=== PATIENT | female | born 2000 | race Caucasian/White ===

== ENCOUNTER → 2019-02-09 11:34 | Outpatient (CLI) | payer OTHER, SELFPAY ==
[2019-02-09 14:01] LABS: Absolute Lymphocyte Count 2.76 X10^3/ul (0.83-4.51); Absolute Neutrophil Count 3.1 X10^3/uL (2.0-7.7); Basophil# 0.01 X10^3/uL; Basophil% 0.2 % (0-1); Eosinophil# 0.03 X10^3/uL; Eosinophils% 0.5 % (0-5); Hematocrit 39.4 % (37-47); Hemoglobin 13.3 g/dl (12.0-15.0); Lymphocyte # 2.76 X10^3/ul (4.0); Mean Corp Hgb Conc 33.8 g/gl (32-36); Mean Corpuscular Hgb 29.1 pg (27.0-32.0); Mean Corpuscular Volume 86.2 fL (81-99); Mean Platelet Vol. 11.8 fl (6.2-12.0); Monocyte# 0.38 X10^3/uL; Monocyte% 6.1 % (0-10); Neutrophil # 3.09 X10^3/uL (2.7-7.7); Neutrophil % 49.2 % (47-70); Platelet Count 233 K/mm3 (150-450); RBC Distribution Width CV 13.3 % (11.6-14.6); RBC Distribution Width SD 41.7 fl (35.1-43.9); Red Blood Count 4.57 M/mm3 (4.2-5.4); White Blood Count 6.3 K/mm3 (4.4-11.0)
[2019-02-09 14:11] LABS: POSITIVE COUNT NO; POSITIVE DIFFERENTIAL NO; POSITIVE MORPHOLOGY NO
[2019-02-09 14:13] LABS: Vitamin D,25 Hydroxy 21.6 ng/mL (29.95-100.01)
[2019-02-09 14:23] LABS: Anion Gap 8 (5-15); BUN 11 mg/dL (7-18); Calcium,Total 9.4 mg/dL (8.5-10.1); Chloride 104 mmol/L (98-107); Creatinine, Serum 0.65 mg/dL (0.55-1.02); EST Glomerular Filtration Rate 123 mL/min (>60); Est Glom Filt Rate - Afr Amer 149 mL/min (>60); Glucose 103 mg/dL (74-106); Potassium 3.9 mmol/L (3.5-5.1); Sodium Level 140 mmol/L (136-145); T4 Free Direct 0.94 ng/dL (0.76-1.46); Thyroid Stim Hormone (TSH) 1.93 uIU/mL (0.358-3.74)
== END ==
PROVIDERS: Family Provider Pediatrics; PCP Pediatrics; Referring Provider Pediatrics; Visit Provider Pediatrics
DX: R53.83 Other fatigue (principal)
CPT/HCPCS: 36415; 80048; 82306; 84439; 84443; 85025

== ENCOUNTER 2021-12-27 13:18 | Outpatient (CLI) | payer OTHER, SELFPAY ==
[2021-12-27 15:04] LABS: Absolute Lymphocyte Count 2.84 X10^3/uL (0.83-4.51); Basophil# 0.02 X10^3/uL; Basophil% 0.2 % (0-1); Eosinophil# 0.09 X10^3/uL; Hematocrit 35.1 % (37-47); Lymphocyte # 2.84 X10^3/ul (0.83-4.51); Lymphocyte % 30.2 % (19-41); Mean Corp Hgb Conc 34.2 g/dL (32-36); Mean Corpuscular Hgb 28.2 pg (27.0-32.0); Mean Corpuscular Volume 82.4 fL (81-99); Mean Platelet Vol. 12.2 fl (6.2-12.0); Monocyte# 0.45 X10^3/uL; Monocyte% 4.8 % (0-10); NRBC Flagged by Analyzer 0 % (0-5); Neutrophil # 5.97 X10^3/uL (2.7-7.7); Neutrophil % 63.5 % (47-70); Platelet Count 288 K/mm3 (150-450); RBC Distribution Width CV 13.8 % (11.6-14.6); RBC Distribution Width SD 40.5 fl (35.1-43.9); Red Blood Count 4.26 M/mm3 (4.2-5.4); White Blood Count 9.4 K/mm3 (4.4-11.0)
[2021-12-27 15:56] LABS: HIV - WCH Non-Reactive (Nonreactive); Hepatitis B Surface Antigen Non-Reactive (Nonreactive); Hepatitis C Antibody Non-Reactive (Nonreactive); Rubella IgG Reactive (Nonreactive); Syphilis Antibodies Non-reactive
[2021-12-30 09:08] LABS: Chlamydia By Nucleic Acid AMP Negative (Negative)
[2021-12-30 10:20] LABS: Gonococcus By Nucleic Acid AMP Negative (Negative)
[2022-01-02 16:42] LABS: HPV Reflexed? NOT INDICATED
== END 2021-12-27 23:59 | disposition home or self-care (01) ==
LOC: WOBLAB 13:19
PROVIDERS: PCP Pediatrics; Visit Provider Obstetrics & Gynecology
DX: Z34.81 Encounter for supervision of other normal pregnancy, first trimester (principal)
CPT/HCPCS: 36415; 85025; 86703; 86762; 86780; 86803; 87086; 87088; 87340; 87491; 87591; 88175; G0145

== ENCOUNTER → 2022-04-05 | Outpatient (CLI) | payer OTHER, SELFPAY ==
[2022-04-05 15:24] LABS: Hematocrit 34.2 % (37-47); Hemoglobin 11.2 g/dL (12.0-15.0); Mean Corp Hgb Conc 32.7 g/dL (32-36); Mean Corpuscular Hgb 28.7 pg (27.0-32.0); Mean Corpuscular Volume 87.7 fL (81-99); Mean Platelet Vol. 12.3 fl (6.2-12.0); Platelet Count 264 K/mm3 (150-450); RBC Distribution Width CV 14.5 % (11.6-14.6); RBC Distribution Width SD 45.9 fl (35.1-43.9); White Blood Count 12.9 K/mm3 (4.4-11.0)
[2022-04-05 15:29] LABS: Glucose Challenge Gest 1H 50g 162 mg/dL (70-140)
== END | disposition home or self-care (01) ==
LOC: WOBLAB 14:16
PROVIDERS: PCP Pediatrics; Visit Provider Obstetrics & Gynecology
DX: Z34.82 Encounter for supervision of other normal pregnancy, second trimester (principal)
CPT/HCPCS: 36415; 82950; 85027

== ENCOUNTER 2022-04-25 20:10 | Outpatient (CLI) | payer OTHER, SELFPAY ==
[2022-04-25] VITALS (11 sets, daily range): BP systolic 116; BP diastolic 81; PULSE 124–135; TEMP 36.2; O2SAT 97–99; BMI 42.2
[2022-04-25] MEDS: Acetaminophen 500 MG Tablet 1000 MG PO (21:46)
[2022-04-25 21:47] LABS: Mucous, Urine 0 SEEN /hpf (<or=2+); Red Blood Cells-Urine 0 SEEN /hpf (0-5)
[2022-04-25 21:56] LABS: Color, Urine Yellow (Yellow); Glucose, Dipstick Normal (Normal); Ketone-Dipstick 5 mg/dl (Negative); Leukocyte Esterase-Dipstick 25 /ul (Negative); Nitrite-Dipstick Negative (Negative); Occult Blood-Urine 10 /ul (Negative); Protein-Dipstick 15 mg/dl (Negative); Specific Gravity, Urine 1.025 (1.002-1.030); Urine Bilirubin Dipstick Negative (Negative); Urine Clarity Sl. Cloudy (Clear); Urine Urobilinogen Normal (Normal)
[2022-04-25] MEDS: Lactated Ringers 1,000 ML 999 ML IV (22:00)
[2022-04-25 22:17] LABS: Squamous Epithelial Cells - UA 10-25 SEEN /hpf (5-10)
[2022-04-25 22:18] LABS: Bacteria 2+ /hpf (None Seen); Calcium Oxalate Crystals Ur 2+ /hpf (<or=2+); White Blood Cells 5-10 SEEN /hpf (0-5)
--- NOTE | 2022-04-25 22:40 | OB.TRI.NOTE ---
HPI - General HPI Narrative KAREN KRUSE, is a 22 F who presents irregular cramping PFSH PFSH Home Medications montelukast 10 mg tablet 10 mg PO DAILY 08/02/14 [History Last Taken Unknown] [id number] 1 mg tablet 1 tab PO DAILY 04/25/22 [History Last Taken Unknown] Allergy/AdvReac Type Severity Reaction Status Date / Time egg AdvReac Vomiting Verified 04/25/22 20:43 Social History Smoking Status: Never smoker NST FHR Rate Baby A Baseline: 140 Variability:: Moderate Accelerations:: 10 x 10 Decelerations:: None NST Reactive:: Yes Uterine Activity:: quiet Assessment & Plan (1) : PLAN: Pt arrives with irregular cramping. Now resolved with no signs of labor. Okay to d/c home
== END 2022-04-25 23:10 | disposition home or self-care (01) ==
LOC: WPOUT 20:19 → WP 20:20
PROVIDERS: PCP Pediatrics; Visit Provider Obstetrics & Gynecology
DX: O47.9 False labor, unspecified (principal); Z3A.00 Weeks of gestation of pregnancy not specified
CPT/HCPCS: 96360; 59025; 59050; 81001; 87086; 87088; 99218; J7120; G0378

== ENCOUNTER 2022-05-22 00:35 | Observation (INO) | payer OTHER, SELFPAY ==
[2022-05-21 09:19] LABS: Glucose GTT-Gestation. Fasting 106 mg/dL (<105)
[2022-05-21 11:19] LABS: Glucose GTT-Gestational 2 Hr 110 mg/dL (<165)
[2022-05-21 11:20] LABS: Glucose GTT-Gestational 1 Hr 176 mg/dL (<190)
[2022-05-21 13:25] LABS: Glucose GTT-Gestational 3 Hr 164 L (<145)
[2022-05-21 22:40] VITALS: BMI 42.8
[2022-05-21 22:56] VITALS: BP 120/83; PULSE 111; TEMP 36.4; O2SAT 99
[2022-05-22 00:21] LABS: Mucous, Urine 0 SEEN /hpf (<or=2+)
[2022-05-22 00:22] LABS: Color, Urine Yellow (Yellow); Glucose, Dipstick Normal (Normal); Ketone-Dipstick 15 mg/dl (Negative); Leukocyte Esterase-Dipstick 25 /ul (Negative); Nitrite-Dipstick Negative (Negative); Occult Blood-Urine Negative /ul (Negative); Protein-Dipstick 30 mg/dl (Negative); Specific Gravity, Urine 1.025 (1.002-1.030); Urine Bilirubin Dipstick Negative (Negative); Urine Clarity Sl. Cloudy (Clear); Urine Urobilinogen Normal (Normal)
[2022-05-22 00:28] LABS: Bacteria 4+ /hpf (None Seen); Red Blood Cells-Urine 0-5 SEEN /hpf (0-5); Squamous Epithelial Cells - UA 10-25 SEEN /hpf (5-10); Transitional Epithelial - Ur 0-5 SEEN /hpf (0-5); White Blood Cells 5-10 SEEN /hpf (0-5)
--- NOTE | 2022-05-22 00:29 | PCM.HP.BLA ---
History and Physical Date of Admission: 05/22/22 HPI: 22-year-old G1 at 31/4 weeks, PAIGE 07/20/2022 by LMP, presenting with right lower quadrant pain. Pain started this afternoon. States that it is sharp. It is constant but also comes and goes. Patient unsure what or if anything makes pain worse. States that nothing makes pain better. Has not taken any medication for pain today. Reports emesis x2. Last ate around 1600 yesterday. Denies fever or chills at home. Denies leaking of fluid, vaginal bleeding, contractions. Reports movement. Denies change in bowel habits. Denies urinary symptoms. complicated by: Obesity, resolved previa NEGATIVE DEVELOPER history: G1 Medical history: Denies Surgical history: Tonsillectomy Medications: vitamin Social history: Denies tobacco, alcohol, drug use Family history: Noncontributory Allergies: Eggs Review system: Negative otherwise stated above Physical exam: Blood pressure 120/83, pulse 111, oxygen saturation 99% on room air, temp pending General: Comfortable resting in bed HEENT: Normocephalic/atraumatic, PERRLA Cardiorespiratory: No increased effort Abdomen: Soft, gravid, obese. No rebound or guarding. Mildly tender right lower quadrant. Extremities: No edema Musculoskeletal: Strength at 5 out of 5 throughout all extremities Neurologic: Cranial nerves II through XII grossly intact, no focal deficits heart rate: 145/mod josh/+accel/no decel [place]: rare Assessment/Plan: 22-year-old G1 at 31/4 weeks, PAIGE 07/20/2022 by LMP, presenting with right lower quadrant pain. complicated by: Obesity, resolved previa -Patient is mildly tender in right lower quadrant. Afebrile at home, temperature pending today. Will get urinalysis and urine culture, check cervix to rule out labor. 1000 mg Tylenol p.o., Zofran 4 mg p.o. ?Plan for abdominal ultrasound to evaluate for possible appendicitis. Patient did have 2 episodes of vomiting, is not vomiting at this time. No rebound or guarding on exam. Denied fevers at home. Patient slightly tachycardic, however has been tachycardic on recent admissions as well, likely secondary to as it is mild. ?CBC, LR bolus 1000 cc
[2022-05-22] MEDS: Acetaminophen 500 MG Tablet 1000 MG PO (01:05)
[2022-05-22] MEDS: Ondansetron ODT 4 MG Tablet PO (01:06)
[2022-05-22] MEDS: Lactated Ringers 1,000 ML 999 ML IV (01:55)
[2022-05-22 02:04] LABS: Absolute Lymphocyte Count 3.36 X10^3/uL (0.83-4.51); Absolute Neutrophil Count 9.7 X10^3/uL (2.0-7.7); Basophil# 0.02 X10^3/uL; Basophil% 0.1 % (0-1); Eosinophil# 0.05 X10^3/uL; Eosinophils% 0.4 % (0-5); Hematocrit 33.1 % (37-47); Hemoglobin 10.6 g/dL (12.0-15.0); Lymphocyte # 3.36 X10^3/ul (0.83-4.51); Lymphocyte % 24.3 % (19-41); Mean Corpuscular Hgb 26.7 pg (27.0-32.0); Mean Corpuscular Volume 83.4 fL (81-99); Mean Platelet Vol. 12.6 fl (6.2-12.0); Monocyte# 0.66 X10^3/uL; Monocyte% 4.8 % (0-10); NRBC Flagged by Analyzer 0 % (0-5); Neutrophil # 9.66 X10^3/uL (2.7-7.7); Platelet Count 249 K/mm3 (150-450); RBC Distribution Width CV 14.9 % (11.6-14.6); Red Blood Count 3.97 M/mm3 (4.2-5.4); White Blood Count 13.8 K/mm3 (4.4-11.0)
[2022-05-22 06:23] VITALS: BP 111/75; PULSE 90; TEMP 36.4; O2SAT 98
[2022-05-22 07:30] VITALS: TEMP 36.7; O2SAT 99
[2022-05-22 07:31] VITALS: BP 123/76; PULSE 98
[2022-05-22 07:32] VITALS: PULSE 92; O2SAT 99
--- NOTE | 2022-05-22 09:30 | US_ITS ---
STUDY: ABDOMINAL ULTRASOUND - right lower quadrant REASON FOR VISIT: Female, 22 years old right lower quadrant pain- r/o appendicitis TECHNIQUE: Ultrasound evaluation of the right upper quadrant was performed with real-time and static taveras-scale imaging. TECHNICAL QUALITY: Adequate. COMPARISON: None. FINDINGS: Imaging of the right lower quadrant was performed. The appendix was not visualized. Correlation with the CT scan of the abdomen is recommended if appendicitis is clinically suspicious US/Abdomen Limited IMPRESSION: No sonographic abnormality is seen. Correlation with CT scan of the abdomen and pelvis recommended to rule out appendicitis if clinically indicated. Electronically Signed: Catarino Aguilar MD at 10:08 EDT ,
[2022-05-22 09:58] VITALS: BP 107/69; PULSE 94
[2022-05-22 11:53] VITALS: BP 130/80; PULSE 98
--- NOTE | 2022-05-22 12:02 | CT_ITS ---
STUDY: CT ABDOMEN AND PELVIS WITH CONTRAST REASON FOR EXAM: Female, 22 years old. Right lower abd pain . 31 WEEKS . The patient was shielded appropriately. RADIATION DOSAGE (If Supplied By Facility): CTDIvol = ( 20.40 ) mGy, DLP = ( 1437.01 ) mGycm TECHNIQUE: Transaxial images were obtained from the dome of the diaphragm to the symphysis pubis without oral contrast. IV 100mL Isovue-300 was administered. Sagittal and coronal images were reconstructed. Individualized dose optimization techniques were used for this CT. COMPARISON: None. FINDINGS: The visualized lung bases are unremarkable. The visualized portions of the heart are within normal limits. There is decreased attenuation of the liver consistent with steatosis. Normal gallbladder and extrahepatic biliary system. Normal spleen. Normal pancreas. Normal bilateral adrenal glands. There is a 3 mm nonobstructive calculus in the lower pole calyx of the right kidney. Normal left kidney. There is a small hiatal hernia. Normal small intestine. Normal colon. The appendix is visualized and appears normal. Normal abdominal aorta. Normal inferior vena cava. Normal retroperitoneum. Normal urinary bladder. A fetus is seen within the uterus. Normal abdominal wall. Normal osseous structures. CT/Abdomen/Pelvis W IV Cont ONLY IMPRESSION: 3 mm nonobstructive calculus in the lower pole calyx of the right kidney. Electronically Signed: Catarino Aguilar MD at 12:49 EDT ,
--- NOTE | 2022-05-22 17:57 | PCM.PN.OB ---
Subjective Subjective Slight right sided pain Objective Data Objective Data Vital Signs: Vital Signs Temp Pulse BP Pulse Ox 98.0 F 98 130/80 H 99 05/22/22 07:30 05/22/22 11:53 05/22/22 11:53 05/22/22 07:32 Weight: 242 lb Body Mass Index (BMI) 42.8 Intake & Output: Intake and Output for Last 24 Hours 05/20/22 05/21/22 05/22/22 23:59 23:59 23:59 Intake Total 1000 / 1000 Balance 1000 / 1000 Lab / Micro Data Result Diagrams: 05/22/22 01:55 Labs: Laboratory Results - last 24 hr 05/22/22 00:15: Urine Color Yellow, Urine Clarity Sl. Cloudy, Urine pH 6.0, Ur Specific [place] 1.025, Urine Protein 30 H, Urine Glucose (UA) Normal, Urine Ketones 15 H, Urine Occult Blood Negative, Urine Nitrite Negative, Urine Bilirubin Negative, Urine Urobilinogen Normal, Ur Leukocyte Esterase 25 H, Urine RBC 0-5 SEEN, Urine WBC 5-10 SEEN, Ur Squamous Epith Cells 10-25 SEEN, Ur Transition Epith Cell 0-5 SEEN, Urine Bacteria 4+, Urine Mucus 0 SEEN 05/22/22 01:55: WBC 13.8 H, RBC 3.97 L, Hgb 10.6 L, Hct 33.1 L, MCV 83.4, MCH 26.7 L, MCHC 32.0, RDW Std Deviation 45.0 H, RDW Coeff of Kylee 14.9 H, Plt Count 249, MPV 12.6 H, Immature Gran % (Auto) 0.400, Neut % (Auto) 70.0, Lymph % (Auto) 24.3, [place] % (Auto) 4.8, Eos % (Auto) 0.4, Baso % (Auto) 0.1, Absolute Neuts (auto) 9.7 H, Absolute Lymphs (auto) 3.36, Nucleated RBC % 0 Radiography Diagnostic Testing: Radiology Impression Abdomen Ultrasound 05/22/22 09:30 IMPRESSION: No sonographic abnormality is seen. Correlation with CT scan of the abdomen and pelvis recommended to rule out appendicitis if clinically indicated. Electronically Signed: Catarino Aguilar MD at 10:08 EDT , Abdomen/Pelvis CT 05/22/22 12:02 IMPRESSION: 3 mm nonobstructive calculus in the lower pole calyx of the right kidney. Electronically Signed: Catarino Aguilar MD at 12:49 EDT , Physical Exam Const alert, oriented x3, no apparent distress, average body habitus, healthy appearing and well nourished HEENT normocephalic and moist oral mucous membranes Eyes PERRL Neck full ROM Resp normal respiratory effort, no retractions and no use of accessory muscles GI GI Narrative: soft, mildly tender right lower quadrant, neg rebound tenderness and guarding Extremity normal to inspection, full ROM and no clubbing, cyanosis or edema Neuro moves all extremities, no focal motor deficits and no sensory deficits noted Assessment & Plan (1) : PLAN: Pt s/p u/s with no visualized appendix. CT with no signs of appendicitis. right renal calculi seen. IVF bolus again ordered, pt declined. Discussed Flomax at home and PO hydration. Pt states understanding. Discharged home
== END 2022-05-22 14:24 | disposition home or self-care (01) ==
LOC: WOBLAB 05-23 08:14 → WP 05-23 08:14
PROVIDERS: Admitting Provider Student in an Organized Health Care Education/Training Program; PCP Pediatrics; Referring Provider Obstetrics & Gynecology; Visit Provider Student in an Organized Health Care Education/Training Program
DX: O26.893 Other specified pregnancy related conditions, third trimester (principal); O99.213 Obesity complicating pregnancy, third trimester; R00.0 Tachycardia, unspecified; R10.31 Right lower quadrant pain; Z3A.31 31 weeks gestation of pregnancy
CPT/HCPCS: 96360; 36415; 59025; 59050; 74177; 76705; 81001; 82951; 82952; 85025; 87086; 87088; 99218; J7120; Q9967; A4216; G0378

== ENCOUNTER → 2022-06-28 | Outpatient (CLI) | payer OTHER, SELFPAY | END | disposition home or self-care (01) | LOC: LABSPEC 16:51 | PROVIDERS: PCP Pediatrics; Visit Provider Obstetrics & Gynecology | DX: Z36.85 Encounter for antenatal screening for Streptococcus B (principal) | CPT/HCPCS: 87081 ==

== ENCOUNTER 2022-07-05 12:30 | Inpatient (IN) | payer OTHER, SELFPAY ==
[2022-07-05] VITALS (19 sets, daily range): BP systolic 113–140; BP diastolic 77–95; PULSE 95–117; TEMP 36.3–36.9; O2SAT 98; BMI 44.8
[2022-07-05 10:35] LABS: Mucous, Urine 0 SEEN /hpf (<or=2+); Red Blood Cells-Urine 0 SEEN /hpf (0-5)
[2022-07-05 10:41] LABS: Hematocrit 34.7 % (37-47); Hemoglobin 10.9 g/dL (12.0-15.0); Mean Corp Hgb Conc 31.4 g/dL (32-36); Mean Corpuscular Volume 82.6 fL (81-99); Mean Platelet Vol. 12.7 fl (6.2-12.0); Platelet Count 209 K/mm3 (150-450); RBC Distribution Width CV 15.9 % (11.6-14.6); White Blood Count 8.8 K/mm3 (4.4-11.0)
[2022-07-05 11:24] LABS: AST(SGOT) 25 U/L (15-37); Alanine Aminotransfer ALT/SGPT 17 U/L (13-56); Creatinine, Serum 0.59 mg/dL (0.55-1.02); EST Glomerular Filtration Rate 132 mL/min (>60); Est Glom Filt Rate - Afr Amer 160 mL/min (>60); LDH 189 U/L (84-246); Uric Acid 6.7 mg/dL (2.6-6.0)
[2022-07-05 11:34] LABS: Color, Urine Yellow (Yellow); Glucose, Dipstick Normal (Normal); Ketone-Dipstick 5 mg/dl (Negative); Leukocyte Esterase-Dipstick 25 /ul (Negative); Nitrite-Dipstick Negative (Negative); Occult Blood-Urine Negative /ul (Negative); Protein-Dipstick 30 mg/dl (Negative); Specific Gravity, Urine 1.025 (1.002-1.030); Urine Bilirubin Dipstick Negative (Negative); Urine Clarity Sl. Cloudy (Clear); Urine Urobilinogen Normal (Normal)
[2022-07-05 11:40] LABS: Bacteria 2+ /hpf (None Seen); Squamous Epithelial Cells - UA 5-10 SEEN /hpf (5-10); White Blood Cells 0-5 SEEN /hpf (0-5)
[2022-07-05 11:46] LABS: Protein, Urine (Random) 56.2 mg/dL (<11.9); Protein:Creat Ratio 360 mg/g CRE (0-200)
--- NOTE | 2022-07-05 12:31 | HP.PCM.OB_ITS ---
History and Physical Date of Admission: 07/05/22 Chief complaint: Elevated blood pressures History present illness: 22-year-old G1, P0 at 37 weeks and 6 days with PAIGE 07/20/2022 arrives with elevated blood pressures. Denies headache, visual changes, chest pain, shortness of breath, nausea vomit, right upper quadrant pain. Patient states good movement. is complicated by GDM A2 growth ultrasounds AGA Obstetric history: G1: Current Past medical history: GDM A2 Past surgical history: [place] teeth extraction, tonsil adenoids Medications: vitamin, Levemir 20 units every morning 15 units every afternoon Allergies: No known drug allergies Family history: Denies history DVT or PE Social history: Denies smoking, alcohol use, drug use Review of systems: Besides above pertinent positives a full review of systems was performed and found to be negative Physical exam: Vitals: Blood pressure 117/82 pulse 104 General: Normal-appearing no acute distress HEENT: Normocephalic/atraumatic no cervical adenopathy Cardiac/respiratory: No accessory muscles, nonlabored breathing Abdomen: Soft, nontender, gravid Extremities: No peripheral edema normal peripheral pulses Psych: Normal affect normal demeanor nonpressured speech Labs: White blood cell count 8.8 hemoglobin 10.9 hematocrit 34.7% platelets 209. Creatinine 0.59. AST 25 ALT 17. LDH 189. Urine protein creatinine ratio 0.36. Blood type a positive antibody negative Assessment plan: 22-year-old at 37 weeks and 6 days with preeclampsia without severe features. [place] range blood pressures with proteinuria. We will continue to monitor blood pressures and treat appropriately. GDM A2 for blood sugar now and will treat appropriately. Cytotec induction 25 mcg vaginally. GBS negative. Educated patient on preeclampsia and need for induction of labor risk benefits alternatives patient state understanding wish to proceed. All question s were answered. Anesthesia to see
[2022-07-05] MEDS: miSOPROStol 25 MCG TABLET VAGINAL (14:05)
[2022-07-05 16:20] LABS: Bedside Glucose 91 mg/dL (74-106)
[2022-07-05 19:56] LABS: Bedside Glucose 80 mg/dL (74-106)
[2022-07-05 20:56] LABS: Bedside Glucose 81 mg/dL (74-106)
[2022-07-05] MEDS: Lactated Ringers 1,000 ML 50 ML IV (21:10)
[2022-07-05] MEDS: LACTATED RINGERS 500 ML 999 ML IV ×2 (21:10→23:22)
[2022-07-05] MEDS: fentaNYL 100 MCG/2 ML Ampul IV (23:11)
[2022-07-06] VITALS (54 sets, daily range): BP systolic 95–152; BP diastolic 56–108; PULSE 75–107; TEMP 36.1–37.3; O2SAT 96–100
[2022-07-06] MEDS: Oxytocin 30 units/NS 500 ml 30 UNITS/500 ML IV.SOLN IV (00:03)
[2022-07-06 01:00] LABS: Bedside Glucose 82 mg/dL (74-106)
[2022-07-06 03:15] LABS: Bedside Glucose 69 mg/dL (74-106)
[2022-07-06 03:15] LABS: Bedside Glucose 87 mg/dL (74-106)
[2022-07-06] MEDS: 0.9% Saline Lock 10 ML Syringe IV ×3 (04:12→22:26)
[2022-07-06] MEDS: fentaNYL 100 MCG/2 ML Ampul IV (04:12)
[2022-07-06] MEDS: LACTATED RINGERS 500 ML 999 ML IV ×2 (06:11→14:31)
[2022-07-06] MEDS: fentaNYL-bupivacaine (epidural) 100 ML BAG EPIDURAL ×4 (07:03→22:10)
[2022-07-06] MEDS: Lactated Ringers 1,000 ML 200 ML IV ×4 (07:43→23:36)
[2022-07-06] MEDS: Acetaminophen 500 MG Tablet PO ×2 (07:55→14:39)
[2022-07-06] MEDS: 0.9% Normal Saline Single 100 ML IV.SOLN. INTRA-UTER (08:55)
[2022-07-06 09:36] LABS: Bedside Glucose 85 mg/dL (74-106)
--- NOTE | 2022-07-06 09:45 | PN.OBGYN_ITS ---
Subjective Subjective Patient seen and examined this morning. Comfortable with epidural. Objective Data Objective Data Vital Signs: Vital Signs Temp Pulse BP Pulse Ox 97.8 F 80 120/61 98 07/06/22 09:08 07/06/22 09:13 07/06/22 09:13 07/06/22 09:08 Weight: 114.759 kg Body Mass Index (BMI) 44.8 Intake & Output: Intake and Output for Last 24 Hours 07/04/22 07/05/22 07/06/22 23:59 23:59 23:59 Intake Total 1110.83 / 1110.83 1047.86 / 1047.86 Balance 1110.83 / 1110.83 1047.86 / 1047.86 Lab / Micro Data Result Diagrams: 07/05/22 10:25 07/05/22 10:25 Labs: Laboratory Results - last 24 hr 07/05/22 10:25: WBC 8.8, RBC 4.20, Hgb 10.9 L, Hct 34.7 L, MCV 82.6, MCH 26.0 L, MCHC 31.4 L, RDW Std Deviation 47.0 H, RDW Coeff of Kylee 15.9 H, Plt Count 209, MPV 12.7 H 07/05/22 10:25: U Random Total Protein 56.2 H, Urine Creatinine 156.00, Protein/Creatinin Ratio 360 H 07/05/22 10:25: Creatinine 0.59, Est GFR (MDRD) Af Amer 160, Est GFR (MDRD) Non- Af 132, Uric Acid 6.7 H, AST 25, ALT 17, Lactate Dehydrogenase 189 07/05/22 10:25: Urine Color Yellow, Urine Clarity Sl. Cloudy, Urine pH 6.0, Ur Specific [place] 1.025, Urine Protein 30 H, Urine Glucose (UA) Normal, Urine Ketones 5 H, Urine Occult Blood Negative, Urine Nitrite Negative, Urine Bilirubin Negative, Urine Urobilinogen Normal, Ur Leukocyte Esterase 25 H, Urine RBC 0 SEEN, Urine WBC 0-5 SEEN, Ur Squamous Epith Cells 5-10 SEEN, Urine Bacteria 2+, Urine Mucus 0 SEEN 07/05/22 10:25: Blood Type A POSITIVE, Antibody Screen NEGATIVE 07/05/22 15:59: POC Glucose 91 07/05/22 19:25: POC Glucose 80 07/05/22 20:36: POC Glucose 81 07/06/22 00:30: POC Glucose 82 07/06/22 02:27: POC Glucose 69 L 07/06/22 02:50: POC Glucose 87 07/06/22 06:34: POC Glucose 85 Micro: Microbiology 07/05/22 19:25 Nasal Secretion SARS-CoV-2 Antigen (Rapid) - Final Physical Exam Const alert, oriented x3 and no apparent distress HEENT normocephalic Head and Scalp: atraumatic Resp normal respiratory effort Cardio regular rate GI non-tender and non-distended Inspection: gravid Narrative: /-2, Nogueira bulb placed Extremity normal to inspection Skin no rashes or lesions noted Psych mental status grossly normal NST FHR Rate Baby A Baseline: 130 Variability:: Moderate Accelerations:: 15 x 15 Decelerations:: None FHR Category:: Category I FHR Rate Baby B Uterine Activity:: q1-5 Assessment & Plan (1) Pre-eclampsia: PLAN: G1 at 38/0 weeks continue induction of labor for preeclampsia without severe features. Additionally complicated by GDM A2. Blood pressures have been well controlled, blood sugars also well controlled. Patient now comfortable with epidural, Nogueira bulb placed this morning. Category 1 tracing. Continue titrating Pitocin as tolerated. All questions answered this morning.
[2022-07-06 11:05] LABS: Bedside Glucose 78 mg/dL (74-106)
[2022-07-06 15:06] LABS: Bedside Glucose 81 mg/dL (74-106)
[2022-07-06] MEDS: Mag Hydrox/Al Hydrox/Simeth 30 ML UDC PO (15:27)
[2022-07-06 19:31] LABS: Bedside Glucose 76 mg/dL (74-106)
[2022-07-06] MEDS: Ondansetron 4 MG/2 ML Vial IV (19:35)
[2022-07-06] MEDS: Albuterol IH (6.7 GM) 1 PUFF INHALER 2 PUFF INHALATION (20:59)
[2022-07-06 23:01] LABS: Bedside Glucose 70 mg/dL (74-106)
[2022-07-07] VITALS (63 sets, daily range): BP systolic 105–188; BP diastolic 53–99; PULSE 81–123; RESP 16–18; TEMP 36.1–37.2; O2SAT 97–100
[2022-07-07] MEDS: Ondansetron 4 MG/2 ML Vial IV (01:29)
[2022-07-07] MEDS: 0.9% Saline Lock 10 ML Syringe IV (01:29)
[2022-07-07 02:06] LABS: Bedside Glucose 79 mg/dL (74-106)
[2022-07-07] MEDS: fentaNYL-bupivacaine (epidural) 100 ML BAG EPIDURAL (02:57)
[2022-07-07] MEDS: Magnesium Sulfate 4gm/100mL 4 GM/100 ML IV.SOLN. IV (03:27)
[2022-07-07] MEDS: Labetalol (Prefilled) 20 MG/4 ML IV (03:30)
[2022-07-07] MEDS: Magnesium Sulfate 4gm/100mL 2 GM/50 ML IV.SOLN. IV (03:47)
[2022-07-07] MEDS: Magnesium Sulfate 20 GM/500 ML BAG IV ×2 (03:58→13:47)
[2022-07-07] MEDS: Albuterol IH (6.7 GM) 1 PUFF INHALER 2 PUFF INHALATION (04:00)
[2022-07-07] MEDS: Labetalol 100 MG Tablet PO (04:00)
[2022-07-07] MEDS: Oxytocin 30 units/NS 500 ml 30 UNITS/500 ML IV.SOLN 334 UNITS IV (04:36)
--- NOTE | 2022-07-07 05:06 | EX.PCM.OBRPT ---
Vaginal Delivery Operative Information Date of Procedure: 07/07/22 Pre-Operative Diagnosis: Lim intraterine , severe pre-eclampsia, GDMA2 Post-Operative Diagnosis: Lim intraterine , severe pre-eclampsia, GDMA2 Surgery / Procedure Performed: Spontaneous Vaginal Delivery Type of Anesthesia: Epidural Estimated Blood Loss: 400cc Findings Description of Procedure: Spontaneous vaginal delivery of viable infant female. No nuchal cord. Baby to mom. Cord clamped and cut. Spontaneous delivery of placenta. First degree laceration repaired in usual fashion, hemostatic. Right labial abrasion, hemostatic without intervention. Patient diagnosed with pre-eclampsia with severe features this morning based on severe range blood pressures. Given 20 mg IV labetalol and 100 mg PO labetalol. Started on 6gm mag sulfate bolus followed by 2g/hr. Will continue until 0430 on 07/08. Mag levels q6h. Monitor BPs for need for PO maintenance dose. Discussed with patient and bedside RN. Infant A Gender: Male (1 minute): 9 (5 minute): 9
[2022-07-07] MEDS: miSOPROStol 200 MCG Tablet 1000 MCG RC (05:20)
[2022-07-07 05:36] LABS: Bedside Glucose 137 mg/dL (74-106)
[2022-07-07 05:36] LABS: Bedside Glucose 97 mg/dL (74-106)
[2022-07-07] MEDS: Ibuprofen 600 MG Tablet PO ×3 (06:07→21:25)
[2022-07-07] MEDS: Lactated Ringers 1,000 ML 15 ML IV (07:06)
[2022-07-07 10:30] LABS: Magnesium 5.5 mg/dL (1.6-2.6)
[2022-07-07] MEDS: Montelukast 10 MG Tablet PO (10:35)
[2022-07-07 17:02] LABS: Magnesium 5.9 mg/dL (1.6-2.6)
[2022-07-07 23:08] LABS: Magnesium 5.6 mg/dL (1.6-2.6)
[2022-07-08] VITALS (13 sets, daily range): BP systolic 107–130; BP diastolic 56–79; PULSE 81–109; RESP 14–18; TEMP 36.1–37.3; O2SAT 97–100
[2022-07-08] MEDS: Magnesium Sulfate 20 GM/500 ML BAG IV (00:33)
[2022-07-08] MEDS: Acetaminophen 500 MG Tablet 1000 MG PO ×2 (01:56→14:37)
[2022-07-08 06:26] LABS: Bedside Glucose 83 mg/dL (74-106)
[2022-07-08 07:16] LABS: Absolute Lymphocyte Count 2.78 X10^3/uL (0.83-4.51); Absolute Neutrophil Count 5.3 X10^3/uL (2.0-7.7); Basophil# 0.01 X10^3/uL; Basophil% 0.1 % (0-1); Eosinophil# 0.04 X10^3/uL; Eosinophils% 0.5 % (0-5); Hemoglobin 6.7 g/dL (12.0-15.0); Lymphocyte # 2.78 X10^3/ul (0.83-4.51); Lymphocyte % 32.2 % (19-41); Mean Corp Hgb Conc 29.1 g/dL (32-36); Mean Corpuscular Hgb 25.6 pg (27.0-32.0); Mean Corpuscular Volume 87.8 fL (81-99); Mean Platelet Vol. 12.5 fl (6.2-12.0); Monocyte# 0.46 X10^3/uL; Monocyte% 5.3 % (0-10); NRBC Flagged by Analyzer 0 % (0-5); Neutrophil # 5.28 X10^3/uL (2.7-7.7); Neutrophil % 61.2 % (47-70); Platelet Count 180 K/mm3 (150-450); RBC Distribution Width CV 16.7 % (11.6-14.6); RBC Distribution Width SD 51.7 fl (35.1-43.9); Red Blood Count 2.62 M/mm3 (4.2-5.4); White Blood Count 8.6 K/mm3 (4.4-11.0)
--- NOTE | 2022-07-08 07:17 | PCM.PN.OB ---
Subjective Subjective No overnight complaints. Denies headache, visual changes, chest pain, shortness of breath, nausea vomit, right upper quadrant pain. Objective Data Objective Data Vital Signs: Vital Signs Temp Pulse Resp BP Pulse Ox O2 Del Method 98.2 F 97 16 130/76 H 99 Room Air 07/08/22 04:30 07/08/22 04:45 07/08/22 04:30 07/08/22 04:45 07/08/22 04:30 07/08/22 04:30 Oxygen Delivery Method Room Air Weight: 253 lb Body Mass Index (BMI) 44.8 Intake & Output: Intake and Output for Last 24 Hours 07/06/22 07/07/22 07/08/22 23:59 23:59 23:59 Intake Total 5091.33 / 5091.33 3578.03 / 3578.03 1143.5 / 1143.5 Output Total 1790 / 1790 2250 / 2250 1100 / 1100 Balance 3301.33 / 3301.33 1328.03 / 1328.03 43.5 / 43.5 Lab / Micro Data Result Diagrams: 07/05/22 10:25 07/08/22 06:50 Labs: Laboratory Results - last 24 hr 07/07/22 09:50: Magnesium 5.5 H* 07/07/22 16:25: Magnesium 5.9 H* 07/07/22 22:25: Magnesium 5.6 H* 07/08/22 06:05: POC Glucose 83 Micro: Microbiology 07/05/22 19:25 Nasal Secretion SARS-CoV-2 Antigen (Rapid) - Final Physical Exam Const alert, oriented x3, no apparent distress, average body habitus, healthy appearing and well nourished HEENT normocephalic and moist oral mucous membranes Eyes PERRL Resp normal respiratory effort, no retractions and no use of accessory muscles GI GI Narrative: Soft, nontender, uterus firm and below umbilicus Extremity normal to inspection, full ROM and no clubbing, cyanosis or edema Neuro moves all extremities and no focal motor deficits Psych mental status grossly normal, affect normal, speech normal and activity/motor behavior normal Assessment & Plan (1) Vaginal delivery: PLAN: day 1. Breast-feeding. Preeclampsia with severe features based on severe range blood pressures status post magnesium. We will continue to monitor blood pressures, patient remains asymptomatic. GDM A2, will follow up
[2022-07-08 07:47] LABS: ALB/GLOB Ratio 0.5 RATIO (0.9-2.4); AST(SGOT) 17 U/L (15-37); Alanine Aminotransfer ALT/SGPT 14 U/L (13-56); Albumin, Serum 1.7 g/dL (3.2-5.0); Alkaline Phosphatase 121 U/L (45-117); Anion Gap 9 (5-15); BUN 11 mg/dL (7-18); BUN/Creat Ratio 18.9 RATIO (10-20); Calcium,Total 6.8 mg/dL (8.5-10.1); Chloride 107 mmol/L (98-107); Creatinine, Serum 0.58 mg/dL (0.55-1.02); EST Glomerular Filtration Rate 135 mL/min (>60); Est Glom Filt Rate - Afr Amer 164 mL/min (>60); Estimated Creatinine Clearance 123.72 ml/min; Globulin 3.6 g/dL (2.2-4.2); Glucose 81 mg/dL (74-106); Potassium 3.5 mmol/L (3.5-5.1); Protein, Total 5.3 g/dL (6.4-8.2); Sodium Level 141 mmol/L (136-145)
[2022-07-08] MEDS: Ibuprofen 600 MG Tablet PO ×2 (07:49→18:13)
[2022-07-08] MEDS: Montelukast 10 MG Tablet PO (07:52)
[2022-07-08] MEDS: 0.9% Saline Lock 10 ML Syringe IV (18:14)
[2022-07-09 01:39] VITALS: BP 102/74; PULSE 99; RESP 18; TEMP 36.1; O2SAT 97
--- NOTE | 2022-07-09 01:59 | PCM.PN.OB ---
Subjective Subjective Minimal discomfort, lochia minimal. No headache or vision changes. Objective Data Objective Data Vital Signs: Vital Signs Temp Pulse Resp BP Pulse Ox O2 Del Method 97 F L 99 18 102/74 97 Room Air 07/09/22 01:39 07/09/22 01:39 07/09/22 01:39 07/09/22 01:39 07/09/22 01:39 07/09/22 01:39 Oxygen Delivery Method Room Air Weight: 114.759 kg Body Mass Index (BMI) 44.8 Intake & Output: Intake and Output for Last 24 Hours 07/07/22 07/08/22 07/09/22 23:59 23:59 23:59 Intake Total 3578.03 / 3578.03 1143.5 / 1143.5 Output Total 2250 / 2250 1100 / 1100 Balance 1328.03 / 1328.03 43.5 / 43.5 Lab / Micro Data Result Diagrams: 07/08/22 06:50 07/08/22 06:50 Labs: Laboratory Results - last 24 hr 07/08/22 06:05: POC Glucose 83 07/08/22 06:50: Sodium 141, Potassium 3.5, Chloride 107, Carbon Dioxide 25.0, Anion Gap 9, BUN 11, Creatinine 0.58, Estim Creat Clear Calc 123.72, Est GFR (MDRD) Af Amer 164, Est GFR (MDRD) Non-Af 135, BUN/Creatinine Ratio 18.9, Glucose 81, Calcium 6.8 L, Total Bilirubin 0.20, AST 17, ALT 14, Alkaline Phosphatase 121 H, Total Protein 5.3 L, Albumin 1.7 L, Globulin 3.6, Albumin/Globulin Ratio 0.5 L 07/08/22 06:50: WBC 8.6, RBC 2.62 L, Hgb 6.7 L, Hct 23.0 L, MCV 87.8 D, MCH 25.6 L, MCHC 29.1 L D, RDW Std Deviation 51.7 H, RDW Coeff of Kylee 16.7 H, Plt Count 180, MPV 12.5 H, Immature Gran % (Auto) 0.700, Neut % (Auto) 61.2, Lymph % (Auto) 32.2, [place] % (Auto) 5.3, Eos % (Auto) 0.5, Baso % (Auto) 0.1, Absolute Neuts (auto) 5.3, Absolute Lymphs (auto) 2.78, Nucleated RBC % 0 Micro: Microbiology 07/05/22 19:25 Nasal Secretion SARS-CoV-2 Antigen (Rapid) - Final Physical Exam Const alert, oriented x3 and no apparent distress HEENT normocephalic Head and Scalp: atraumatic Neck full ROM Resp normal respiratory effort Cardio regular rate GI normal to inspection, nondistended, normoactive bowel sounds GI Narrative: Uterus 2 cm below umbilicus Back/Spine normal ROM Extremity normal to inspection Extremity Narrative: Minimal pedal edema Neuro no focal motor deficits and no sensory deficits noted Psych mental status grossly normal and affect normal Assessment & Plan (1) Severe pre-eclampsia: PLAN: day 2 status post . Complicated by gestational diabetes on medications. Additionally severe preeclampsia status post magnesium sulfate, labetalol IV x1 on 07/07. Blood pressures well controlled. Asymptomatic. Hemoglobin low yesterday at 6.7. Will repeat today. Discussed possible blood transfusion versus IV iron. Results pending. Likely home tomorrow day 3. (2) Gestational diabetes:
[2022-07-09] MEDS: Ibuprofen 600 MG Tablet PO ×2 (03:59→16:51)
[2022-07-09 05:40] LABS: Absolute Lymphocyte Count 2.44 X10^3/uL (0.83-4.51); Absolute Neutrophil Count 4.6 X10^3/uL (2.0-7.7); Eosinophil# 0.05 X10^3/uL; Eosinophils% 0.7 % (0-5); Hemoglobin 6.9 g/dL (12.0-15.0); Lymphocyte # 2.44 X10^3/ul (0.83-4.51); Lymphocyte % 32.3 % (19-41); Mean Corpuscular Hgb 26.1 pg (27.0-32.0); Mean Corpuscular Volume 87.1 fL (81-99); Mean Platelet Vol. 11.2 fl (6.2-12.0); Monocyte# 0.38 X10^3/uL; NRBC Flagged by Analyzer 0.3 % (0-5); Neutrophil # 4.62 X10^3/uL (2.7-7.7); Neutrophil % 61.1 % (47-70); Platelet Count 190 K/mm3 (150-450); RBC Distribution Width CV 16.8 % (11.6-14.6); RBC Distribution Width SD 51.6 fl (35.1-43.9); Red Blood Count 2.64 M/mm3 (4.2-5.4); White Blood Count 7.6 K/mm3 (4.4-11.0)
[2022-07-09 07:52] VITALS: BP 121/79; PULSE 102; RESP 16; TEMP 36.3
--- NOTE | 2022-07-09 09:07 | NURSING ---
Dr. Yoli Peng placed a call to this RN for Venifor 200mg Iv and to have CBC drawn in the morning. This nurse read back orders to physician
[2022-07-09] MEDS: Senna/Docusate Sodium 1 Tablet PO (09:52)
[2022-07-09] MEDS: Montelukast 10 MG Tablet PO (10:30)
[2022-07-09] MEDS: 0.9% Saline Lock 10 ML Syringe IV (10:30)
[2022-07-09 13:52] VITALS: BP 119/83; PULSE 121; RESP 16; TEMP 36.8
--- NOTE | 2022-07-09 18:40 | CASEMGMT ---
Social Work Brief Assessment Labor and Delivery Unit Patient Address: [address] [place] [address] , [address], [place] [address] Phone number: Date of Referral/Notification: 07/07/2022 Time of Referral: [id number] Referred By: Dr. Gayathri Crain Date of Intervention: 07/09/2022 Time of Intervention: Approximately 1730 Reason for Referral: Maternal history of anxiety and depression Informant: Medical record and mother of baby (MOB) Sonia Kunz History: MOB is a 22-year-old female, to the father of baby (FOB) Tono Kunz since February 2021. MOB denies any form of abuse or intimate partner violence in this relationship, and reports that FOB is a strong support system. baby is the first child for both parents, baby eliel Kunz (07/07/2022) delivered at 37 weeks gestation. Apgars 9 and 9 at 1 and 5 minutes of life respectively. weight 7 pounds 15 ounces. FABIANO is 1, para 0 now 1. Maternal history of preeclampsia and gestational diabetes during this . MOB reports to have a bachelor's in counseling from [employer] in [place]. No concerns with reading, writing, or learning comprehension. 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 FOB works first shift at a factory. MOB denies any type of substance use issues for self or FOB. MOB endorses history of depression and anxiety with history of treatment with citalopram and buspirone, though went off this medication for . MOB reports history of counseling during time at college and had a fairly good experience. Denies any history of suicidal ideations, attempts, or planning. MOB reports depression and anxiety does run in the family. MOB reports living situation includes the FOB and MOB's father are both reported as helpful. Assessment: Met with MOB alone, introducing to self and social work role. Assessment completed with the MOB, although FOB returned to the room at the end of conversation with dinner. Introduced to self and role to the FOB. During assessment with MOB, MOB was cooperative and pleasant. Affect constricted, and cried periodically throughout assessment. Good eye contact. MOB at times would hesitate talking, though as assessment progressed MOB appeared to become more relaxed with conversation. MOB reports has made the decision to provide formula through bottle to the baby, and is feeling comfortable with this decision as had been feeling increased stress with breast-feeding. MOB reports the FOB has been helpful, getting up at the night and helping to take care of the baby so the MOB can rest. MOB admits was having increased depression and anxiety during this with just a general feeling of distress, worrying about the the baby and other social stressors (MOB's grandmother is physically ill and not doing well living in another state). MOB reports now that made decision to provide formula to the baby feels more comfortable with restarting medication. MOB reports history of good results from the citalopram and the buspirone. Reports was prescribed this by her family physician, and could go back to this doctor to have medications restarted. [place] depression screen is currently a score of 13, which does indicate presence of depression/anxiety. MOB stated no to question #10 relating to thoughts of harming self. Also denied any historical history regarding suicidal thoughts/ideations/planning or attempts. Reviewed depression screen with MOB and encouraged MOB to consider starting support for emotional health issues sooner than later. MOB expressed understanding and agreement. MOB accepted a list of counseling options for [facility] as also reports would consider this if needed. MOB reports she likes to listen to music and this can help at times when feeling overwhelmed. MOB endorsed having a good support system from the FOB, MOB's mother, father, and sister. MOB reports her sister just had a baby and has been a good support as far as understanding would like to go through and have a baby. MOB reports to have no issues letting family know of need for support. MOB indicates having a connection with the baby. Emotional support offered to MOB this date. This policy writer sales did observe the baby to be sleeping in the bedside crib, and a few times did fuss. Observed the MOB to immediately attend to the baby, by placing hand on the baby making and comforting noises. This policy writer sales encouraged MOB to rest when able, accept help and try to get fresh air daily. Provided MOB with a packet on mood and anxiety disorders which includes resources for additional support. MOB does decline any type of referral to help me grow early [facility]. MOB be was made aware of [facility] services is something to look into for assistance with formula. [facility] resource list also provided. Plan: MOB and infant will discharge home. Resources have been provided for mood and anxiety disorders including hotlines, online chats, and counseling options. MOB indicates plan to talk with physician about restarting medication. No further needs requested or indicated, though social work does remain involved should any additional concerns arise prior to discharge. -GRAY Minaya, SHEILA *This note was generated with [employer] dictation software. It may contain incorrect words, spelling, and punctuation that were not noted in review of the chart prior to signing*
[2022-07-09 20:10] VITALS: BP 114/82; PULSE 124; RESP 18; TEMP 37; O2SAT 97
[2022-07-09 20:13] VITALS: PULSE 117
[2022-07-10] MEDS: Ibuprofen 600 MG Tablet PO ×2 (01:23→14:16)
[2022-07-10 01:31] VITALS: BP 124/85; PULSE 109; RESP 17; TEMP 36.6
[2022-07-10] MEDS: Acetaminophen 500 MG Tablet 1000 MG PO (03:45)
[2022-07-10] MEDS: 0.9% Saline Lock 10 ML Syringe IV (04:32)
[2022-07-10 05:44] LABS: Hematocrit 23.1 % (37-47); Hemoglobin 7.1 g/dL (12.0-15.0); Mean Corp Hgb Conc 30.7 g/dL (32-36); Mean Corpuscular Hgb 26.8 pg (27.0-32.0); Mean Corpuscular Volume 87.2 fL (81-99); Mean Platelet Vol. 11.5 fl (6.2-12.0); Platelet Count 196 K/mm3 (150-450); RBC Distribution Width SD 51.5 fl (35.1-43.9); Red Blood Count 2.65 M/mm3 (4.2-5.4); White Blood Count 6.8 K/mm3 (4.4-11.0)
--- NOTE | 2022-07-10 07:04 | PN.OBGYN_ITS ---
Subjective Subjective No overnight complaints. Denies headache, visual changes, chest pain, shortness of breath, nausea vomit, right upper quadrant pain. Objective Data Objective Data Vital Signs: Vital Signs Temp Pulse Resp BP Pulse Ox O2 Del Method 97.9 F 109 H 17 124/85 H 97 Room Air 07/10/22 01:31 07/10/22 01:31 07/10/22 01:31 07/10/22 01:31 07/09/22 20:10 07/09/22 20:10 Oxygen Delivery Method Room Air Weight: 253 lb Body Mass Index (BMI) 44.8 Intake & Output: Intake and Output for Last 24 Hours 07/08/22 07/09/22 07/10/22 23:59 23:59 23:59 Intake Total 1143.5 / 1143.5 110 / 110 Output Total 1100 / 1100 Balance 43.5 / 43.5 110 / 110 Lab / Micro Data Result Diagrams: 07/10/22 05:30 07/08/22 06:50 Labs: Laboratory Results - last 24 hr 07/10/22 05:30: WBC 6.8, RBC 2.65 L, Hgb 7.1 L, Hct 23.1 L, MCV 87.2, MCH 26.8 L , MCHC 30.7 L, RDW Std Deviation 51.5 H, RDW Coeff of Kylee 17.0 H, Plt Count 196, MPV 11.5 Micro: Microbiology 07/05/22 19:25 Nasal Secretion SARS-CoV-2 Antigen (Rapid) - Final Physical Exam Const alert, oriented x3, no apparent distress, average body habitus, healthy appearing and well nourished HEENT normocephalic and moist oral mucous membranes Eyes PERRL Neck full ROM Resp normal respiratory effort, no retractions and no use of accessory muscles Extremity normal to inspection, full ROM and no clubbing, cyanosis or edema Neuro moves all extremities, no focal motor deficits and no sensory deficits noted Psych mental status grossly normal, affect normal, speech normal and activity/motor behavior normal Assessment & Plan (1) Vaginal delivery: PLAN: day 3. Formula feeding. Pain well controlled. Preeclampsia with severe features based on severe range blood pressures, blood pressures well controlled on no medications, asymptomatic. Acute on chronic anemia, status pos t venofer. Patient is asymptomatic and hemoglobin 7.1 this morning. Discussed blood transfusion versus expectant management p.o. iron, patient for p.o. iron and expectant management. GDM A2 we will follow-up . Okay to discharge home today, to take blood pressures at home and follow-up within a week in office for blood pressure check
--- NOTE | 2022-07-10 07:06 | PCM.DC.BLA ---
Discharge Summary Date of Admission: 07/05/22 Date of Discharge: 07/10/22 Summary: Patient arrived on 07/05/2022 for induction of labor for preeclampsia without severe features. Patient subsequently diagnosed intrapartum with preeclampsia with severe features based on severe range blood pressures given labetalol 20 mg IV x1. Subsequently delivered vaginally on 07/07/2022. Magnesium continue for 24 hours. No p.o. medications for blood pressure needed. Patient noted to have acute on chronic anemia given Venofer, hemoglobin remained stable and patient remained asymptomatic. Discharged home on p.o. iron. Patient to take at home blood pressures. GDM A2 to follow-up Meaningful Use Info Meaningful Use Diagnoses (Choose all that apply): None applicable Discharge Plan Admission Admit Date/Time: 07/05/22 12:30 Primary Reason for Your Visit: Induction of labor for preeclampsia Attending Provider: Yoli Peng Primary Care Provider: Elizabeth Peng Instructions Additional Instructions / Restrictions: Regular diet. Weightbearing as tolerated. Okay to shower. No intercourse for 4 to 6 weeks. Call if fevers, chills, chest pain, shortness of breath, headache, visual changes. Follow-up within 1 week for blood pressure check Discharge Orders/Prescriptions Prescriptions: No Action montelukast 10 MG tablet 10 mg PO DAILY 1 mg Tablet 1 tab PO DAILY Referrals / Follow Up: Elizabeth Peng MD [Primary Care Provider] - Disposition Disposition (needs filled in before D/C Order can be placed): Home, Self Care
[2022-07-10 08:04] VITALS: BP 147/87; PULSE 108; RESP 17; TEMP 36.2; O2SAT 97
[2022-07-10 10:20] VITALS: BP 132/85; PULSE 121; RESP 20; TEMP 36.6; O2SAT 121
--- NOTE | 2022-07-10 10:53 | CT_ITS ---
STUDY: CTA CHEST REASON FOR EXAM: Female, 22 years old. elevated heart rate 120''s-130''s -- call results to dr jarek padgett [phone] RADIATION DOSAGE (If Supplied By Facility): CTDIvol = ( 12.59 ) mGy, DLP = ( 475.13 ) mGycm TECHNIQUE: The examination was performed with the intravenous administration of IV 100mL Isovue-370. Post-processing of the angiographic images was performed, with multiplanar reformation and 3D reconstruction. Individualized dose optimization techniques were used for this CT. COMPARISON: None. FINDINGS: Normal enhancement of the main pulmonary artery and right and left pulmonary arteries. Normal enhancement of the bilateral peripheral pulmonary arteries. There is no demonstrated pulmonary embolism. Normal thoracic aorta and visualized great vessels. There is no demonstrated aortic dissection. Normal heart and pericardium. Normal mediastinum. Normal hilar regions. Normal visualized trachea and bronchi. The lungs are well expanded. Normal pulmonary parenchyma. Normal pleura. Normal chest wall structures. Normal osseous structures. Normal visualized upper abdomen. CT/CTA Chest W/WO Contrast IMPRESSION: Normal CTA chest examination, without a demonstrated pulmonary embolism or arterial dissection. Electronically Signed: Quintin Singletary MD, LEO at 13:05 EDT ,
[2022-07-10] MEDS: Montelukast 10 MG Tablet PO (13:03)
[2022-07-10 13:46] VITALS: BP 129/79; PULSE 125; RESP 20; TEMP 36.3; O2SAT 99
--- NOTE | 2022-07-10 14:22 | NURSING ---
student nurse DW charting reviewed and used for learning and education purposes.
--- NOTE | 2022-07-10 15:45 | NURSING ---
read and agree with student nurse charting
== END 2022-07-10 15:47 | disposition home or self-care (01) | DRG 807 ==
LOC: WPOUT 12:37 → WP 12:37
PROVIDERS: Obstetrics & Gynecology; Admitting Provider Student in an Organized Health Care Education/Training Program; PCP Pediatrics; Visit Provider Student in an Organized Health Care Education/Training Program
DX: O14.14 Severe pre-eclampsia complicating childbirth (principal); Z37.0 Single live birth; O24.420 Gestational diabetes mellitus in childbirth, diet controlled; E66.01 Morbid (severe) obesity due to excess calories; J45.909 Unspecified asthma, uncomplicated; Z3A.38 38 weeks gestation of pregnancy; O70.0 First degree perineal laceration during delivery; O99.214 Obesity complicating childbirth; O90.81 Anemia of the puerperium; O99.52 Diseases of the respiratory system complicating childbirth; Z28.310 Unvaccinated for COVID-19; Z28.9 Immunization not carried out for unspecified reason
CPT/HCPCS: 36415; 59025; 59050; 71275; 80053; 81001; 82565; 82570; 82962; 83615; 83735; 84156; 84450; 84460; 84550; 85025; 85027; 86850; 86900; 86901; 87811; 99218; J1756; J7120; Q9967; A4216; G0378; J2405

== ENCOUNTER 2022-07-12 18:12 | Emergency (ER) | payer OTHER, SELFPAY ==
[2022-07-12 18:13] VITALS: BP 128/103; PULSE 142; RESP 20; TEMP 36.2; O2SAT 97; BMI 41.3
--- NOTE | 2022-07-12 18:23 | NURSING ---
NO OLD EKGS
--- NOTE | 2022-07-12 18:27 | CT_ITS ---
STUDY: CTA CHEST REASON FOR EXAM: Female, 22 years old. shortness of breath RADIATION DOSAGE (If Supplied By Facility): CTDIvol = ( 12.57 ) mGy, DLP = ( 526.86 ) mGycm TECHNIQUE: The examination was performed with the intravenous administration of IV 100mL Isovue-370. Post-processing of the angiographic images was performed, with multiplanar reformation and 3D reconstruction. Individualized dose optimization techniques were used for this CT. COMPARISON: 07/10/2022 FINDINGS: Normal enhancement of the main pulmonary artery and right and left pulmonary arteries. Normal enhancement of the bilateral peripheral pulmonary arteries. There is no demonstrated pulmonary embolism. Normal thoracic aorta and visualized great vessels. There is no demonstrated aortic dissection. Normal heart and pericardium. Normal mediastinum. Normal hilar regions. Normal visualized trachea and bronchi. The lungs are well expanded. Normal pulmonary parenchyma. Normal pleura. Normal chest wall structures. Normal osseous structures. Normal visualized upper abdomen. CT/CTA Chest W/WO Contrast IMPRESSION: Normal CTA chest examination, without a demonstrated pulmonary embolism or arterial dissection. Electronically Signed: Juan Candelaria MD at 19:49 EDT ,
--- NOTE | 2022-07-12 18:27 | EKG12_ITS ---
Test Reason : CHEST PAIN Blood Pressure : / mmHG Vent. Rate : 133 BPM Atrial Rate : 133 BPM P-R Int : 124 ms QRS Dur : 076 ms QT Int : 294 ms P-R-T Axes : 042 056 038 degrees QTc Int : 437 ms Sinus tachycardia Otherwise normal ECG Confirmed by ZULEIKA KEITH, KELLY ([id number]), dictionary editor NERY IBRAHIM ([id number]) on 07/15/2022 9:58:12 A M Referred By: STEPHEN Confirmed By:CASSANDRA TO MD
--- NOTE | 2022-07-12 18:30 | EDS_ITS ---
HPI <ESTELLA Lombardo - Last Filed: 07/12/22 21:21> History of Present Illness Chief Complaint: Chest Pain Narrative Narrative: 22-year-old female had a vaginal delivery here at [facility] on 07/07. She went home 2 days later and has been recovering well. Today she had general malaise and checked her temperature and it was 101 ?F. She then developed midsternal chest pain that started at rest. The pain has no aggravating or alleviating factors. No shortness of breath, nausea vomiting, or diaphoresis. No recent cough or viral symptoms. No leg pain or swelling. She states she did have preeclampsia and gestational diabetes. [facility] <ESTELLA Lombardo - Last Filed: 07/12/22 21:21> [facility] Medical History (Updated 07/12/22 @ 20:43 by ESTELLA Lombardo) Anxiety Depression Gestational diabetes Pre-eclampsia Tonsillectomy planned Home Medications montelukast 10 mg tablet 10 mg PO DAILY 08/02/14 [History Last Taken 05/21/22 08:00] [id number] 1 mg tablet 1 tab PO DAILY 04/25/22 [History Last Taken 05/21/22 08:00] Allergy/AdvReac Type Severity Reaction Status Date / Time egg AdvReac Vomiting Verified 07/12/22 18:13 Social History Smoking Status: Never smoker ROS <ESTELLA Lombardo - Last Filed: 07/12/22 21:21> ROS ED ROS Narrative Constitutional: Negative for fever, malaise. Eyes: Negative for visual change. ENT: Negative for sore throat, ear pain, rhinorrhea. CVS: Positive for chest pain. Negative for palpitations, syncope. Respiratory: Negative for shortness of breath, cough, orthopnea. GI: Negative for abdominal pain, nausea, vomiting, diarrhea, constipation, melena, hematochezia. : Negative for dysuria, hematuria or frequency. Neuro: Negative for headache, motor/sensory dysfunction. Skin: Negative for rash, abscess, or wound. Musc: Negative for joint pain, swelling, trauma. Heme: Negative for easy bruising, bleeding, lymphadenopathy. EXAM <ESTELLA Lombardo - Last Filed: 07/12/22 21:21> Physical Exam Narrative Exam Narrative: CONST: Patient sitting in no acute distress. EYES: Normal inspection. NECK: Normal inspection. RESP: No respiratory distress, CTAB. CVS: Tachycardic with regular rhythm, no murmur, no gallop. ABD: Soft and nontender, no guarding or rebound, nondistended. SKIN: Color normal, no rash, warm, dry, intact. EXTREMITIES: Normal appearance, no calf tenderness, no pedal edema. NEURO: Oriented x4. PSYCH: Normal affect. Const Vital Signs: 07/12/22 18:13 07/12/22 19:14 07/12/22 19:57 Temperature 97.2 F L Temperature Source Temporal Pulse Rate 142 H 88 Respiratory Rate 20 H 16 Respiratory Effort Normal Blood Pressure 128/103 H 106/90 H Blood Pressure Mean 111 95 Pulse Ox 97 100 Oxygen Delivery Method Room Air Room Air 07/12/22 21:00 Temperature Temperature Source Pulse Rate 80 Respiratory Rate 18 Respiratory Effort Blood Pressure 110/86 H Blood Pressure Mean 94 Pulse Ox 100 Oxygen Delivery Method Room Air <Dr. Tulio Willard MD - Last Filed: 07/13/22 00:25> Physical Exam Const Vital Signs: 07/12/22 18:13 07/12/22 19:14 07/12/22 19:57 Temperature 97.2 F L Temperature Source Temporal Pulse Rate 142 H 88 Respiratory Rate 20 H 16 Respiratory Effort Normal Blood Pressure 128/103 H 106/90 H Blood Pressure Mean 111 95 Pulse Ox 97 100 Oxygen Delivery Method Room Air Room Air 07/12/22 21:00 Temperature Temperature Source Pulse Rate 80 Respiratory Rate 18 Respiratory Effort Blood Pressure 110/86 H Blood Pressure Mean 94 Pulse Ox 100 Oxygen Delivery Method Room Air MDM <ESTELLA Lombardo - Last Filed: 07/12/22 21:21> [facility] Narrative Medical decision making narrative: Patient states she had malaise, fever, and then developed midsternal chest pain. She just had a vaginal delivery on 07/07. She appears well and nontoxic. Her heart rate is in the 140s with otherwise normal vital signs. Afebrile. On examination she appears anxious but nontoxic. Heart is rapid but regular. Lungs are clear. There is no lower extremity edema or calf tenderness. EKG is sinus rhythm with no ischemia and troponin is 4. Labs show normal white count, hemoglobin of 8.3 trending up, and unremarkable BMP. With shortness of breath and peripartum region a CTA was obtained to rule out a blood clot. It is negative for PE or acute findings. Upon reevaluation patient notes she has had intermittent acid reflux and was treated with Mylanta with minimal improvement. Today there is no clear cause of her chest pain but we have ruled out dangerous etiologies and its possible could still be acid reflux. Regarding her urine there are still large amount of blood and white blood cells. She is having bleeding which explains the RBCs and has no urinary symptoms so this will be sent for culture. At this time patient was advised to follow-up with her primary care and [employer] team. Return if symptoms change or worsen Lab Data Attestation: I reviewed the patient's lab results. Labs: Laboratory Results - last 24 hr 07/12/22 07/12/22 07/12/22 18:45 18:45 19:52 WBC 7.5 RBC 3.18 L Hgb 8.3 L Hct 27.8 L MCV 87.4 MCH 26.1 L MCHC 29.9 L RDW Std Deviation 52.1 H RDW Coeff of Kylee 17.8 H Plt Count 275 MPV 11.0 Immature Gran % (Auto) 2.100 H Neut % (Auto) 63.7 Lymph % (Auto) 27.6 [place] % (Auto) 5.4 Eos % (Auto) 0.9 Baso % (Auto) 0.3 Absolute Neuts (auto) 4.8 Absolute Lymphs (auto) 2.06 Nucleated RBC % 0.4 Sodium 145 Potassium 3.5 Chloride 111 H Carbon Dioxide 25.0 Anion Gap 9 BUN 8 Creatinine 0.63 Estim Creat Clear Calc 113.90 Est GFR (MDRD) Af Amer 150 Est GFR (MDRD) Non-Af 124 BUN/Creatinine Ratio 12.8 Glucose 99 Calcium 9.1 Troponin I High Sens 4 Urine Color Red Urine Clarity Cloudy Urine pH 5.0 Ur Specific Ovalo 1.015 Urine Protein 100 H Urine Glucose (UA) Normal Urine Ketones 5 H Urine Occult Blood 250 H Urine Nitrite Negative Urine Bilirubin Negative Urine Urobilinogen Normal Ur Leukocyte Esterase 500 H Urine RBC > 100 SEEN Urine WBC >100 SEEN Ur Squamous Epith Cells 5-10 SEEN Urine Bacteria 3+ Urine Mucus 1+ Radiography Diagnostic Testing: Clinical Impression(s) from Imaging Studies Chest CTA 07/12/22 18:27 IMPRESSION: Normal CTA chest examination, without a demonstrated pulmonary embolism or arterial dissection. Electronically Signed: Juan Candelaria MD at 19:49 EDT , EKG Initial EKG: Attestation: I personally reviewed and interpreted this EKG as follows: Interpretation: Sinus Rhythm and No Acute Injury Pattern Comments: Sinus tachycardia at 133 bpm, SD interval 124 ms, QRS duration 76 ms, QTC 437 ms. No acute ischemic changes. <Dr. Tulio Willard MD - Last Filed: 07/13/22 00:25> [facility] Lab Data Labs: Laboratory Results - last 24 hr 07/12/22 07/12/22 07/12/22 18:45 18:45 19:52 WBC 7.5 RBC 3.18 L Hgb 8.3 L Hct 27.8 L MCV 87.4 MCH 26.1 L MCHC 29.9 L RDW Std Deviation 52.1 H RDW Coeff of Kylee 17.8 H Plt Count 275 MPV 11.0 Immature Gran % (Auto) 2.100 H Neut % (Auto) 63.7 Lymph % (Auto) 27.6 [place] % (Auto) 5.4 Eos % (Auto) 0.9 Baso % (Auto) 0.3 Absolute Neuts (auto) 4.8 Absolute Lymphs (auto) 2.06 Nucleated RBC % 0.4 Sodium 145 Potassium 3.5 Chloride 111 H Carbon Dioxide 25.0 Anion Gap 9 BUN 8 Creatinine 0.63 Estim Creat Clear Calc 113.90 Est GFR (MDRD) Af Amer 150 Est GFR (MDRD) Non-Af 124 BUN/Creatinine Ratio 12.8 Glucose 99 Calcium 9.1 Troponin I High Sens 4 Urine Color Red Urine Clarity Cloudy Urine pH 5.0 Ur Specific Ovalo 1.015 Urine Protein 100 H Urine Glucose (UA) Normal Urine Ketones 5 H Urine Occult Blood 250 H Urine Nitrite Negative Urine Bilirubin Negative Urine Urobilinogen Normal Ur Leukocyte Esterase 500 H Urine RBC > 100 SEEN Urine WBC >100 SEEN Ur Squamous Epith Cells 5-10 SEEN Urine Bacteria 3+ Urine Mucus 1+ Radiography Diagnostic Testing: Clinical Impression(s) from Imaging Studies Chest CTA 07/12/22 18:27 IMPRESSION: Normal CTA chest examination, without a demonstrated pulmonary embolism or arterial dissection. Electronically Signed: Juan Candelaria MD at 19:49 EDT , Treatment and Re-Evaluation Narrative: Seen and evaluated independently and in conjunction with physician assistant community manager. Agree with notes above unless documented otherwise. Patient with an odd combination of symptoms, fever shortly thereafter followed by chest pain and no other symptoms to suggest source of fever. No urinary symptoms, although the urine seems to be the likely source according to testing, we sent it for culture. Very benign exam, abdomen soft nontender, lungs clear to auscultation, mild tachycardia initially but this resolved. Ruled out for PE, no sign of myocarditis or other cardiac etiology, close a patient follow-up advised she is comfortable with that plan. Discharge Plan Triage Chief Complaint: Chest Pain ED Midlevel Provider: Domitila Green ED Provider: Tulio Willard Dx/Rx/DC Orders Clinical Impression: Chest pain Instructions: Chest Pain [facility] Prescriptions: No Action montelukast 10 MG tablet 10 mg PO DAILY 1 mg Tablet 1 tab PO DAILY Primary Care Provider: Care Physician,No Primary Referrals: Elizabeth Peng MD [Non-Staff] - Activity Restrictions/Additional Instructions: Today the testing showed no blood clots or signs of heart attack. I am not sure of the exact cause of your chest pain but it is possible to acid reflux as this is common during and you had the symptoms intermittently. I recommend Pepcid twice daily as needed. Follow-up with your [employer] SUPERVISOR. If symptoms change or worsen return to the ER. Disposition Disposition: Home, Self Care Discharge Date/Time: 07/12/22 22:02
[2022-07-12] MEDS: Acetaminophen 500 MG Tablet 1000 MG PO (18:48)
[2022-07-12] MEDS: 0.9% Normal Saline 1,000 ML 999 ML IV (18:48)
[2022-07-12 19:03] LABS: Absolute Lymphocyte Count 2.06 X10^3/uL (0.83-4.51); Absolute Neutrophil Count 4.8 X10^3/uL (2.0-7.7); Basophil# 0.02 X10^3/uL; Basophil% 0.3 % (0-1); Eosinophil# 0.07 X10^3/uL; Eosinophils% 0.9 % (0-5); Hematocrit 27.8 % (37-47); Hemoglobin 8.3 g/dL (12.0-15.0); Lymphocyte # 2.06 X10^3/ul (0.83-4.51); Lymphocyte % 27.6 % (19-41); Mean Corp Hgb Conc 29.9 g/dL (32-36); Mean Corpuscular Hgb 26.1 pg (27.0-32.0); Mean Corpuscular Volume 87.4 fL (81-99); Monocyte% 5.4 % (0-10); NRBC Flagged by Analyzer 0.4 % (0-5); Neutrophil # 4.76 X10^3/uL (2.7-7.7); Neutrophil % 63.7 % (47-70); Platelet Count 275 K/mm3 (150-450); RBC Distribution Width CV 17.8 % (11.6-14.6); RBC Distribution Width SD 52.1 fl (35.1-43.9); Red Blood Count 3.18 M/mm3 (4.2-5.4); White Blood Count 7.5 K/mm3 (4.4-11.0)
[2022-07-12 19:21] LABS: Anion Gap 9 (5-15); BUN 8 mg/dL (7-18); BUN/Creat Ratio 12.8 RATIO (10-20); Calcium,Total 9.1 mg/dL (8.5-10.1); Chloride 111 mmol/L (98-107); Creatinine, Serum 0.63 mg/dL (0.55-1.02); EST Glomerular Filtration Rate 124 mL/min (>60); Est Glom Filt Rate - Afr Amer 150 mL/min (>60); Glucose 99 mg/dL (74-106); Potassium 3.5 mmol/L (3.5-5.1); Sodium Level 145 mmol/L (136-145); Troponin-I HS 4 pg/mL (3.0-54.0)
[2022-07-12] MEDS: Mag Hydrox/Al Hydrox/Simeth 30 ML UDC 15 ML PO (19:44)
[2022-07-12 19:57] VITALS: BP 106/90; PULSE 88; RESP 16; O2SAT 100
[2022-07-12 20:09] LABS: Color, Urine Red (Yellow); Glucose, Dipstick Normal (Normal); Ketone-Dipstick 5 mg/dl (Negative); Leukocyte Esterase-Dipstick 500 /ul (Negative); Nitrite-Dipstick Negative (Negative); Occult Blood-Urine 250 /ul (Negative); Protein-Dipstick 100 mg/dl (Negative); Specific Gravity, Urine 1.015 (1.002-1.030); Urine Bilirubin Dipstick Negative (Negative); Urine Clarity Cloudy (Clear); Urine Urobilinogen Normal (Normal)
[2022-07-12 20:20] LABS: Bacteria 3+ /hpf (None Seen); Mucous, Urine 1+ /hpf (<or=2+); Red Blood Cells-Urine > 100 SEEN /hpf (0-5); Squamous Epithelial Cells - UA 5-10 SEEN /hpf (5-10); White Blood Cells >100 SEEN /hpf (0-5)
[2022-07-12 21:00] VITALS: BP 110/86; PULSE 80; RESP 18; O2SAT 100
== END 2022-07-12 22:02 | disposition home or self-care (01) ==
PROVIDERS: Physician Assistant; Emergency Provider Emergency Medicine; Visit Provider Emergency Medicine
DX: R07.9 Chest pain, unspecified (principal); R50.9 Fever, unspecified; R53.81 Other malaise
CPT/HCPCS: 71275; 80048; 81001; 84484; 85025; 87086; 87088; 87428; 93005; 96361; 96365; 99284; J7030; Q9967; A4216

== ENCOUNTER → 2022-08-14 | Outpatient (CLI) | payer OTHER, SELFPAY ==
[2022-08-14 16:04] LABS: Absolute Lymphocyte Count 2.23 X10^3/uL (0.83-4.51); Absolute Neutrophil Count 6.7 X10^3/uL (2.0-7.7); Basophil# 0.02 X10^3/uL; Basophil% 0.2 % (0-1); Eosinophils% 1.1 % (0-5); Hematocrit 31.5 % (37-47); Hemoglobin 9.3 g/dL (12.0-15.0); Lymphocyte # 2.23 X10^3/ul (0.83-4.51); Lymphocyte % 23.5 % (19-41); Mean Corp Hgb Conc 29.5 g/dL (32-36); Mean Corpuscular Hgb 24.7 pg (27.0-32.0); Mean Corpuscular Volume 83.8 fL (81-99); Monocyte% 4.2 % (0-10); NRBC Flagged by Analyzer 0 % (0-5); Neutrophil # 6.73 X10^3/uL (2.7-7.7); Neutrophil % 70.8 % (47-70); Platelet Count 304 K/mm3 (150-450); RBC Distribution Width CV 16.7 % (11.6-14.6); Red Blood Count 3.76 M/mm3 (4.2-5.4); White Blood Count 9.5 K/mm3 (4.4-11.0)
[2022-08-14 16:23] LABS: ALB/GLOB Ratio 0.9 RATIO (0.9-2.4); AST(SGOT) 28 U/L (15-37); Alanine Aminotransfer ALT/SGPT 45 U/L (13-56); Albumin, Serum 3.6 g/dL (3.2-5.0); Alkaline Phosphatase 93 U/L (45-117); Anion Gap 8 (5-15); BUN 9 mg/dL (7-18); BUN/Creat Ratio 12.9 RATIO (10-20); Chloride 103 mmol/L (98-107); EST Glomerular Filtration Rate 109 mL/min (>60); Est Glom Filt Rate - Afr Amer 132 mL/min (>60); Glucose 124 mg/dL (74-106); LDH 184 U/L (84-246); Potassium 3.7 mmol/L (3.5-5.1); Protein, Total 7.6 g/dL (6.4-8.2); Sodium Level 139 mmol/L (136-145)
== END | disposition home or self-care (01) ==
LOC: WOBLAB 14:57
PROVIDERS: Visit Provider Obstetrics & Gynecology
DX: Z39.2 Encounter for routine postpartum follow-up (principal)
CPT/HCPCS: 36415; 80053; 83615; 85025

== ENCOUNTER → 2022-08-19 | Outpatient (CLI) | payer OTHER, SELFPAY ==
[2022-08-19 11:33] LABS: Glucose 2 Hour Postprandial 146 mg/dL (<140)
== END | disposition home or self-care (01) ==
LOC: WOBLAB 08:40
PROVIDERS: Visit Provider Obstetrics & Gynecology
DX: O24.419 Gestational diabetes mellitus in pregnancy, unspecified control (principal); Z3A.00 Weeks of gestation of pregnancy not specified
CPT/HCPCS: 36415; 82950

== ENCOUNTER 2025-03-06 17:06 | Emergency (ER) | payer OTHER, SELFPAY ==
[2025-03-06 17:08] VITALS: BP 117/104; PULSE 122; RESP 19; TEMP 37; O2SAT 100; BMI 42.0
[2025-03-06 17:15] VITALS: BP 127/76; PULSE 89; RESP 18; TEMP 37; O2SAT 99
--- OUTSIDE RECORDS SUMMARY | 2025-03-06 17:41 | XMS RPT_ITS | CCD ---
Author Organization [facility] Care Team Providers Care Child Development Instructor Name Role Phone Elissa Bazanelle Attending Unavailable Care Physician, No Primary Referring Unava ilable Care Physician, No Primary Primary Care Unava ilable DOMITILA GIBBS Attending Unavailable NORMA SINGH Primary Care Unavailable Allergies Allergy Classification Reported Allergen(s) Allergy Type Date of Onset Reaction(s) Facility (10 sources) egg extract; Translations: [EGG] Drug Allergy 02-14-2017 Vomiting [facility] Other [facility] (1 source) egg extract Drug Allergy 11-01-2023 [facility] Medications Current Medications Medication Drug Class(es) Dates Sig (Normalized) Sig (Original) cetirizine hydrochloride 10 mg oral tablet (2 sources) Histamine-1 Receptor Antagonist Start: 08-02-2014 take 1 tablet by mouth once daily Cetirizine Hcl (Zyrtec) 10 MG tablet Active 10 MG PO DAILY August 02, 2014 11:25am ibuprofen 400 mg oral tablet (2 sources) Nonsteroidal Anti-inflammatory Drug Start: 08-02-2014 take 800 mg by mouth every six hours as needed Ibuprofen Active 800 MG PO EVERY 6 HOURS NEEDED August 02, 2014 1:57pm montelukast 10 mg oral tablet (9 sources) Leukotriene Receptor Antagonist Start: 08-02-2014 take 10 mg by mouth once daily Montelukast Active 10 MG PO DAILY August 02, 2014 12:00am Tyiqgdxl-Vfb-So-Fa () 1 mg Tablet (7 sources) Start: 04-25-2022 take 1 tablet by mouth once daily Sedgkzud-Shu-Ps-F a () 1 mg Tablet Active 1 TABLET PO DAILY April 24, 2022 11:00pm Start: 04-25-2022 take 1 tablet by aracelis th once daily Mvyzufyc-Joh-Dw-Fa () 1 mg Tablet Active 1 TABLET PO DAILY April 25, 2022 12:00am Problems Problem Classification Problem Date Documented Da te Episodic/Chronic Abdominal pain (1 source) Right lower quadrant pain; Translations: [RLQ abdominal pain] Onset: 08-21-2024 Episodic Diabetes or abnormal glucose tolerance complicating ; childbirth; or the puerperium (8 sources) Gestational diabetes mellitus; Translations: [Gestational diabetes mellitus in , unspecified control] Episodic Hypertension complicating ; childbirth and the puerperium (16 sources) Pre-eclampsia; Translations: [Unspecified pre-eclampsia, unspecified trimester] Episodic Nonspecific chest pain (3 sources) Chest pain; Translations: [Chest pain, unspecified] Episodic Other and delivery including normal (20 sources) ; Translations: [Encounter for supervision of normal , unspecified, unspecified trimester] Episodic Spondylosis; intervertebral disc disorders; other back problems (1 source) Lumbago with sciatica, unspecified side; Translations: [Back pain of lumbar region with sciatica] Onset: 08-21-2024 Episodic Results Test Name Value Interpretation Reference Range [facility] HEALTHon 08-21-2024 ALLIED [facility]ALTH HNO ID: [id number] Author: MICHELLE CHESTER CT Service: Radiology Author Type: Technologist Type: Allied Health Filed: 08/21/2024 02:13 Note Text: Radiology Service Progress Note PATIENT NAME: Holli Moran DATE OF SERVICE: August 21, 2024 TIME: 2:13 AM PATIENT IDENTITY VERIFICATION COMPLETED USING TWO (2) IDENTIFIERS: Name and Date of confirmed by patient verbally and Name and Date of confirmed by identification band. FALL SCREENING: Has the patient had 2 falls in the last year or 1 fall with injury or currently using an Ambulatory Assistive Device (Walker, Cane, Wheelchair, Crutches, etc.)? Emergency Room Patient: Screened in ED PATIENT GENDER DATA: Female. status: : No status: NO. PATIENT RELEVANT IMPLANT DATA REVIEWED: Not Applicable PATIENT PRESENTS WITH AN IMPLANTABLE OR ATTACHED SUPERVISOR TANK HOUSE: No RADIOLOGY DEPARTMENT: CT; Exam(s) Completed: Abdomen/Pelvis PERIPHERAL IV DATA: Not applicable SIGNED BY: HECTOR Carbajal August 21, 2024 2:13 AM [facility] Basic metabolic 2000 panelon 08-21-2024 Anion gap [Moles/Vol] 11 mmol/L Normal 8-15 [facility] Comment on above: Order Comment: Speci men Type: BLOOD SPECIMEN Ordering Facility: [facility] Address: [address] [place] [address] Performed By: #### 2 4321-2 #### [facility] CLIA [id number] [address] [place] [address] [place] Calcium [Mass/Vol] 8.9 mg/dL Normal 8.5-10.2 [facility] Comment on above: Order Comment: Speci men Type: BLOOD SPECIMEN Ordering Facility: [facility] Address: [address] [place] [address] Performed By: #### 2 4321-2 #### [facility] CLIA [id number] [address] [place] [address] [place] Chloride [Moles/Vol] 102 mmol/L Normal 98-107 [facility] Comment on above: Order Comment: Speci men Type: BLOOD SPECIMEN Ordering Facility: [facility] Address: [address] [place] [address] Performed By: #### 2 4321-2 #### [facility] CLIA [id number] [address] [place] [address] [place] CO2 [Moles/Vol] 26 mmol/L Normal 22-30 [facility] Comment on above: Order Comment: Speci men Type: BLOOD SPECIMEN Ordering Facility: [facility] Address: [address] [place] [address] Performed By: #### 2 4321-2 #### [facility] CLIA [id number] [address] [place] [address] [place] Creatinine [Mass/Vol] 0.49 mg/dL Low 0.58-0.96 [facility] Comment on above: Order Comment: Speci men Type: BLOOD SPECIMEN Ordering Facility: [facility] Address: [address] [place] [address] Performed By: #### 2 4321-2 #### [facility] CLIA [id number] [address] [place] [address] [facility] [place] Creatinine and Glomerular filtration rate.predicted panel (S/P/Bld) 133 mL/min/1.73m??? Normal >=60 [facility] Comment on above: Order Comment: Delia rico Type: BLOOD SPECIMEN Ordering Facility: [facility] Address: [address] [place] [address] Result Comment: Beverley mated Glomerular Filtration Rate (eGFR) is calculated using the 2020 CKD-EPI creatinine equation. This equation utilizes serum creatinine, sex, and age as parameters. The creatinine assay has traceable calibration to isotope dilution-mass spectrometry. Refer to KDIGO guidelines for clinical interpretation. In patients with unstable renal function, e.g. those with acute kidney injury, the eGFR may not accurately reflect actual GFR. Performed By: #### 2 4321-2 #### [facility] CLIA [id number] [address] [place] [address] [place] Glucose [Mass/Vol] 124 mg/dL High 74-99 [facility] Comment on above: Order Comment: Delia rico Type: BLOOD SPECIMEN Ordering Facility: [facility] Address: [address] [place] [address] Result Comment: The [place] Diabetes Association (ADA) provides guidance for cutoff values for fasting glucose and random glucose. The ADA defines fasting as no caloric intake for at least 8 hours. Fasting plasma glucose results between 100 to 125 mg/dL indicate increased risk for diabetes (prediabetes). Fasting plasma glucose results greater than or equal to 126 mg/dL meet the criteria for diagnosis of diabetes. In the absence of unequivocal hyperglycemia, results should be confirmed by repeat testing. In a patient with classic symptoms of hyperglycemia or hyperglycemic crisis, random plasma glucose results greater than or equal to 200 mg/dL meet the criteria for diagnosis of diabetes. Reference: Standards of Medical Care in Diabetes 2016, [place] Diabetes Association. Diabetes Care. 2016.39(Suppl 1). Performed By: #### 2 4321-2 #### [facility] CLIA [id number] [address] [place] [address] [place] Potassium [Moles/Vol] 4.0 mmol/L Normal 3.7-5.1 [facility] Comment on above: Order Comment: Delia rico Type: BLOOD SPECIMEN Ordering Facility: [facility] Address: [address] [place] [address] Performed By: #### 2 4321-2 #### [facility] CLIA [id number] [address] [place] [facility] Sodium [Moles/Vol] 139 mmol/L Normal 136-144 [facility] Comment on above: Order Comment: Speci men Type: BLOOD SPECIMEN Ordering Facility: [facility] Address: [address] [place] [address] Performed By: #### 2 4321-2 #### [facility] CLIA [id number] [address] [place] [facility] Urea nitrogen [Mass/Vol] 13 mg/dL Normal 7-21 [facility] Comment on above: Order Comment: Speci men Type: BLOOD SPECIMEN Ordering Facility: [facility] Address: [address] [place] [address] Performed By: #### 2 4321-2 #### [facility] CLIA [id number] [address] CBC W Auto Differential pane l (Bld)on 08-21-2024 Basophils (Bld) [#/Vol] 10*3/uL Normal <0.11 [facility] Comment on above: Order Comment: Speci men Type: BLOOD SPECIMEN Ordering Facility: [facility] Address: [address] [place] [address] Performed By: #### 5 7021-8 #### [facility] CLIA [id number] [address] Basophils/100 WBC (Bld) 0.1 % Normal [facility] Comment on above: Order Comment: Speci men Type: BLOOD SPECIMEN Ordering Facility: [facility] Address: [address] [place] [address] Performed By: #### 5 7021-8 #### [facility] CLIA [id number] [address] Differential cell count method Nom (Bld) Auto Normal [facility] Comment on above: Order Comment: Speci men Type: BLOOD SPECIMEN Ordering Facility: [facility] Address: [address] [place] [address] Performed By: #### 5 7021-8 #### [facility] CLIA [id number] [address] [place] [address] [place] Eosinophils (Bld) [#/Vol] 0.09 10*3/uL Normal <0.46 [facility] Comment on above: Order Comment: Speci men Type: BLOOD SPECIMEN Ordering Facility: [facility] Address: [address] [place] [address] Performed By: #### 5 7021-8 #### [facility] CLIA [id number] [address] [place] Eosinophils/100 WBC (Bld) 1.1 % Normal [facility] Comment on above: Order Comment: Speci men Type: BLOOD SPECIMEN Ordering Facility: [facility] Address: [address] [place] [address] Performed By: #### 5 7021-8 #### [facility] CLIA [id number] [address] [place] Erythrocyte distribution width (RBC) [Ratio] 13.9 % Normal 11.5-15.0 [facility] Comment on above: Order Comment: Speci men Type: BLOOD SPECIMEN Ordering Facility: [facility] Address: [address] [place] [address] Performed By: #### 5 7021-8 #### [facility] CLIA [id number] [address] [place] Hematocrit (Bld) [Volume fraction] 39.6 % Normal 36.0-46.0 [facility] Comment on above: Order Comment: Speci men Type: BLOOD SPECIMEN Ordering Facility: [facility] Address: [address] [place] [address] Performed By: #### 5 7021-8 #### [facility] CLIA [id number] [address] [place] Hemoglobin (Bld) [Mass/Vol] 13.3 g/dL Normal 11.5-15.5 [facility] Comment on above: Order Comment: Speci men Type: BLOOD SPECIMEN Ordering Facility: [facility] Address: [address] [place] [address] Performed By: #### 5 7021-8 #### [facility] CLIA [id number] [address] [place] [address] [place] Immature granulocytes (Bld) [#/Vol] 10*3/uL Normal <0.10 [facility] Comment on above: Order Comment: Speci men Type: BLOOD SPECIMEN Ordering Facility: [facility] Address: [address] [place] [address] Performed By: #### 5 7021-8 #### [facility] CLIA [id number] [address] Immature granulocytes/100 WBC (Bld) 0.3 % Normal [facility] Comment on above: Order Comment: Speci men Type: BLOOD SPECIMEN Ordering Facility: [facility] Address: [address] [place] [address] Performed By: #### 5 7021-8 #### [facility] CLIA [id number] [address] [place] [address] [place] Lymphocytes (Bld) [#/Vol] 2.73 10*3/uL Normal 1.00-4.00 [facility] Comment on above: Order Comment: Speci men Type: BLOOD SPECIMEN Ordering Facility: [facility] Address: [address] [place] [address] Performed By: #### 5 7021-8 #### [facility] CLIA [id number] [address] Lymphocytes/100 WBC (Bld) 34.6 % Normal [facility] Comment on above: Order Comment: Speci men Type: BLOOD SPECIMEN Ordering Facility: [facility] Address: [address] [place] [address] Performed By: #### 5 7021-8 #### [facility] CLIA [id number] [address] [place] [address] [place] MCH (RBC) [Entitic mass] 29.0 pg Normal 26.0-34.0 [facility] Comment on above: Order Comment: Speci men Type: BLOOD SPECIMEN Ordering Facility: [facility] Address: [address] [place] [address] Performed By: #### 5 7021-8 #### [facility] CLIA [id number] [address] MCHC (RBC) [Mass/Vol] 33.6 g/dL Normal 30.5-36.0 [facility] Comment on above: Order Comment: Speci men Type: BLOOD SPECIMEN Ordering Facility: [facility] Address: [address] [place] [address] Performed By: #### 5 7021-8 #### [facility] CLIA [id number] [address] MCV (RBC) [Entitic vol] 86.3 fL Normal 80.0-100.0 [facility] Comment on above: Order Comment: Speci men Type: BLOOD SPECIMEN Ordering Facility: [facility] Address: [address] [place] [address] Performed By: #### 5 7021-8 #### [facility] CLIA [id number] [address] [place] Monocytes (Bld) [#/Vol] 0.52 10*3/uL Normal <0.87 [facility] Comment on above: Order Comment: Speci men Type: BLOOD SPECIMEN Ordering Facility: [facility] Address: [address] [place] [address] Performed By: #### 5 7021-8 #### [facility] CLIA [id number] [address] Monocytes/100 WBC (Bld) 6.6 % Normal [facility] Comment on above: Order Comment: Speci men Type: BLOOD SPECIMEN Ordering Facility: [facility] Address: [address] [place] [address] Performed By: #### 5 7021-8 #### [facility] CLIA [id number] [address] [place] Neutrophils (Bld) [#/Vol] 4.51 10*3/uL Normal 1.45-7.50 [facility] Comment on above: Order Comment: Speci men Type: BLOOD SPECIMEN Ordering Facility: [facility] Address: [address] [place] [address] Performed By: #### 5 7021-8 #### [facility] CLIA [id number] [address] [place] [address] [place] Neutrophils/100 WBC (Bld) 57.3 % Normal [facility] Comment on above: Order Comment: Speci men Type: BLOOD SPECIMEN Ordering Facility: [facility] Address: [address] [place] [address] Performed By: #### 5 7021-8 #### [facility] CLIA [id number] [address] [place] [address] [place] Nucleated RBC (Bld) [#/Vol] 10*3/uL Normal <0.01 [facility] Comment on above: Order Comment: Speci men Type: BLOOD SPECIMEN Ordering Facility: [facility] Address: [address] [place] [address] Performed By: #### 5 7021-8 #### [facility] CLIA [id number] [address] [place] [address] [place] Nucleated RBC/100 WBC (Bld) [Ratio] 0.0 /100 WBC Normal [facility] Comment on above: Order Comment: Speci men Type: BLOOD SPECIMEN Ordering Facility: [facility] Address: [address] [place] [address] Performed By: #### 5 7021-8 #### [facility] CLIA [id number] [address] [place] [address] [place] Platelet mean volume (Bld) [Entitic vol] 11.3 fL Normal 9.0-12.7 [facility] Comment on above: Order Comment: Speci men Type: BLOOD SPECIMEN Ordering Facility: [facility] Address: [address] [place] [address] Performed By: #### 5 7021-8 #### [facility] CLIA [id number] [address] [place] [address] [place] Platelets (Bld) [#/Vol] 234 10*3/uL Normal 150-400 [facility] Comment on above: Order Comment: Speci men Type: BLOOD SPECIMEN Ordering Facility: [facility] Address: [address] [place] [address] Performed By: #### 5 7021-8 #### [facility] CLIA [id number] [address] [place] [address] [place] RBC (Bld) [#/Vol] 4.59 10*6/uL Normal 3.90-5.20 [facility] Comment on above: Order Comment: Speci men Type: BLOOD SPECIMEN Ordering Facility: [facility] Address: [address] [place] [address] Performed By: #### 5 7021-8 #### [facility] CLIA [id number] [address] [place] [address] [place] WBC (Bld) [#/Vol] 7.88 10*3/uL Normal 3.70-11.00 [facility] Comment on above: Order Comment: Speci men Type: BLOOD SPECIMEN Ordering Facility: [facility] Address: [address] [place] [address] Performed By: #### 5 7021-8 #### [facility] CLIA [id number] [address] [facility] CT ABD/PEL WO IVCONon 2023 CT ABD/PEL WO IVCON * * *Final Report* * * DATE OF EXAM: Aug 21 2024 2:21AM [facility] [id number] - CT ABD/PEL WO IVCON / PROCEDURE REASON: RLQ abdominal pain (Age >= 14y) * * * * Physician Interpretation * * * * EXAMINATION: CT ABDOMEN AND PELVIS WITHOUT IV CONTRAST CLINICAL HISTORY: Right-sided back pain TECHNIQUE: Non-IV contrast imaging of the abdomen and pelvis was performed using standard technique, scanning from just above the dome of the diaphragm to the symphysis pubis. Unenhanced imaging is limited for the evaluation of some intra-abdominal and pelvic pathology. MQ: CTAPWO_3 Contrast: IV: None : ml of CT Radiation dose: Integrated Dose-length product (DLP) for this visit = 1332 mGy*cm. CT Dose Reduction Employed: Automated exposure control(AEC) and iterative recon COMPARISON: None. RESULT: Abdomen / Pelvis: Liver: Mild to moderate hepatomegaly measuring 23.5 cm in craniocaudal dimension. Biliary: Minimally distended gallbladder; no wall thickening or pericholecystic fluid. Spleen: Mild splenomegaly, measuring 14 cm in AP dimension. Pancreas: Unremarkable. Adrenals: No mass. Kidneys: 1 mm non-obstructive calculus in the lower pole calyx of the left kidney. No hydronephrosis in either kidney. GI Tract: Unremarkable appendix. Few isolated colonic diverticuli. Redundant sigmoid colon. Lymph Nodes: No significant adenopathy. Mesentery/peritoneum: No ascites. Retroperitoneum: No mass. Vasculature: Non-aneurysmal abdominal aorta. Pelvis: No abnormal extraluminal fluid collection. Bones/Soft Tissues: Incidental limbus vertebra at the superior endplate of L4. Early degenerative changes in the lower thoracic spine. Lower thorax: Unremarkable. Localizer images: No additional findings. IMPRESSION: Left nephrolithiasis, without hydronephrosis. Hepatosplenomegaly. Metallographic Technician: PSCTorie Transcribe Date/Time: Aug 21 2024 2:54A Dictated by : ALEXANDRIA SNYDER MD This examination was interpreted and the report reviewed and electronically signed by: ALEXANDRIA SNYDER MD on Aug 21 2024 3:02AM EST [id number] N [facility] ED NOTEon 08-21-2024 ED NOTE HNO ID: [id number] Author: HANNY BUSBY RN Service: ? Author Type: Registered Nurse Type: ED Notes Filed: 08/21/2024 03:19 Note Text: Pt discharge instructions reviewed, Pt advised to pear picker medications at pharmacy and follow up w/ PCP [facility] ED PROV NOTEon 08-21-2024 ED PROV NOTE HNO ID: [id number] Author: DOMITILA GIBBS MD Service: ? Author Type: Physician Type: ED Provider Notes Filed: 08/21/2024 03:16 Note Text: ED Provider Note Patient Name: Holli Moran : 2000 SERVICE DATE: 08/21/24 History No chief complaint on file. Patient presents for right lower back pain, running down the right leg, that started yesterday at work while patient was bending over to pick something up. She has tried topical pain medications, ibuprofen and Tylenol. Initially she had some improvement but it is not working any longer. No bowel or bladder incontinence or retention. No saddle anesthesia. No numbness or weakness in the legs but pain with ambulation and any movement. PAST MEDICAL HISTORY Diagnosis Date Anxiety Psychiatric disorder PAST SURGICAL HISTORY Procedure Laterality Date TONSILLECTOMY HX No family history on file. Social History Tobacco Use Smoking status: Never Smokeless tobacco: Never Substance and Sexual Activity Alcohol use: Not Currently Drug use: Never Sexual activity: Not on file ALLERGIES Allergen Reactions Egg Unknown Review of Systems Constitutional: Pertinent positives and negatives as per HPI. Physical Exam Vitals BP Pulse Temp Temp src Resp SpO2 Weight Height -- -- -- -- -- -- -- -- Physical Exam Vitals and nursing note reviewed. Exam conducted with a rail car maintenance mechanic present. Constitutional: General: She is in acute distress (Patient is tearful and looks very uncomfortable, especially when moving). Appearance: Normal appearance. She is not toxic-appearing. Pulmonary: Effort: Pulmonary effort is normal. No respiratory distress. Musculoskeletal: Lumbar back: No tenderness or bony tenderness. Decreased range of motion (Secondary to pain). Skin: General: Skin is warm and dry. Neurological: Mental Status: She is alert. Sensory: Sensation is intact. Motor: Motor function is intact. No weakness. Diagnostic Testing ED Labs Ordered and Reviewed - No data to display Procedures ED Course / Clinical Impression ED Course as of 08/21/24 0314 Miguel Ángel Domitila Parris's Documentation Sat Aug 21, 2024 0138 Patient is now complaining of right lower quadrant pain. She states that started within the last 24 hours. It is not worse with movement like her back pain is. She does have her appendix. Labs and CT abdomen pelvis will be obtained to evaluate for kidney stone, UTI, appendicitis or other intra-abdominal pathology. Patient states her pain has improved some with the pain medications she received. 0202 WBC: 7.88 0244 HCG, Qualitative: Negative 0244 Creatinine(!): 0.49 Clinical Impressions as of 08/21/24 0314 Back pain of lumbar region with sciatica RLQ abdominal pain MDM / Disposition / Plan Medical Decision Making: Differential includes, but is not limited to, sciatica, lumbar strain, compression fracture, pathologic lesion. Patient has no red flag symptoms concerning for cauda equina syndrome or spinal cord compressive syndrome. Patient states she is not . She was given prednisone, IM Toradol, and Percocet for symptom treatment. Patient had some improvement in her discomfort but then began complaining of some right lower quadrant pain. Labs showed no leukocytosis, renal insufficiency, electrolyte abnormalities, and is negative. Patient is not having any urinary symptoms concerning for UTI and was not able to provide a urine sample while in the emergency department. CT abdomen pelvis showed no acute abnormality such as bowel obstruction, appendicitis, kidney stone or other emergent pathology that would require surgical consultation or admission. X-ray of the lumbar spine that was obtained prior to the concerned about abdominal pain showed no acute bony lesion or fracture. On reevaluation again patient is feeling better and is comfortable going home. She is to follow-up with her doctor if she does not have improvement in her back pain. She was discharged with prescriptions for prednisone, Flexeril, lidocaine patches and naproxen. History and Record Review Clinical information obtained from an independent historian. History obtained from or confirmed by: family member. Differential Diagnoses - Sciatica - Cauda Equina Syndrome Less likely because: no saddle anesthesia, normal neurologic exam and no urinary retention. - Fracture Less likely because: no midline tenderness, no step-offs or bony deformities, no risk factors for pathologic fracture, no prolonged steroid use and no evidence on imaging. - Renal(pyelonephritis/ nephrolithiasis) Less likely because: no evidence on imaging Additional complaint based differentials considered: cauda equina syndrome, fracture, renal (pyelonephritis/nephr olithiasis) Management I performed an independent interpretation of the following:imaging Imaging: My interpretation is X-ray of the lumbar spine show (more content not included)... Normal [facility] HCG QUALITATIVEon 08-21-2024 HCG, QUALITATIVE Negative Normal Negative [facility] Comment on above: Order Comment: Speci men Type: BLOOD SPECIMEN Ordering Facility: [facility] Address: [address] [place] [address] Performed By: #### H #### [facility] CLIA [id number] [address] [place] [id number] [place] XR LUMBAR 3V AP/LAT/L5-S1on 08-21-2024 XR LUMBAR 3V AP/LAT/L5-S1 * * *Final Report* * * DATE OF EXAM: Aug 21 2024 1:14AM LORETA 5228 - XR LUMBAR 3V AP/LAT/L5-S1 / PROCEDURE REASON: Back pain * * * * Physician Interpretation * * * * HISTORY: Back pain TECHNIQUE: XR LUMBAR 3V AP/LAT/L5-S1 FINDINGS/ IMPRESSION: There are 5 nonrib-bearing lumbar-type vertebrae seen. 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 No spondylolisthesis seen. No acute appearing displaced fracture identified. Metallographic Technician: MARCY Transcribe Date/Time: Aug 21 2024 1:31A Dictated by : FRANCES BRAN MD This examination was interpreted and the report reviewed and electronically signed by: FRANCES BRAN MD on Aug 21 2024 1:33AM EST [id number] N [facility] Urgent Care Visit Reporton 0 11-01-2023 Urgent Care Visit Report [facility] [address], [address] [place] [address] OFFICE VISIT Date of Service: 11/01/23 MR#: [id number] Acct: [id number] Name: KAREN MORAN ANN Rep #: [id number] : 2000 Provider: MYLES Bazan Age/Sex: 23/F Location: [facility] [place] [place] Status: Signed Intake Vital Signs 07/12/22 18:13 11/01/23 12:53 Height 5 ft 3 in 5 ft 3 in Weight: 241 lb BMI 42.7 BP 120/84 H Blood Pressure Location Lt brachial Position Sitting Respiration 12 Pulse 114 H Pulse Source Monitor Temp 98.1 F Temp Source Temporal Pulse Oximetry (%) 97 Oxygen Delivery Method room air Intake Visit Reasons: SINUS CONGESTION Allergies egg Adverse Reaction (Verified 11/01/23 12:54) [facility]iting [facility] Medical History (Updated 11/01/23 @ 13:10 by MYLES Reinoso) Anxiety Depression Gestational diabetes Pre-eclampsia Tonsillectomy planned Social History Smoking Status: Never smoker [facility] HPI Details: KAREN MORAN, is a 23 F who presents to the office today for cold sx. Sx started on Friday. Sx runny nose, sinus pressure, congestion. Bilateral ear pain. Cough on and off. No fever or chills. No myalgias. No sob. Non smoker. Tried so far- otc sinus medication and tylenol. ROS Const Constitutional: Positive for other (ROS negative x6 except what was placed in HPI) Exam Const General: cooperative, comfortable and no acute distress Orientation: alert, awake and oriented x3 HENMT Head: normal to inspection and normocephalic Ears: hearing grossly normal bilaterally, external ears normal and TM's normal bilaterally Nose: external nose normal and other (+ congestion and rhinorrhea. Moderate erythema and swelling) Face and sinus: normal facial exam, face symmetric and sinus tenderness maxillary Mouth: oral mucosae normal, lip normal, tongue normal, oropharynx normal and moist mucous membranes Throat: posterior oropharynx normal, tonsils normal, uvula midline and postnasal drainage Neck Neck: normal visual inspection, full ROM and no lymphadenopathy Resp Effort Inspection: normal respiratory effort, able to speak in complete sentences and symmetric chest movement Auscultation: Bilateral: Clear to Auscultation, Left: Clear to Auscultation and Right: Clear to Auscultation Cardio Rate: regular rate Rhythm: regular rhythm Heart Sounds: S1 normal and S2 normal GI Auscultation: normal bowel sounds Palpation: soft Skin General: no rashes or lesions noted and turgor normal Neuro General: patient alert, patient awake and patient oriented x3 Cognition: normal cognition Speech: speech normal Psych Appearance: grossly normal Mental Status: mental status grossly normal Attitude: cooperative Thought Process: normal Thought Content: normal Coding Level of Care Code Off vis,new,level 2 Diagnoses Acute non-recurrent maxillary sinusitis J01.00 Chronicity: acute Recurrence: non-recurrent Sinusitis location: maxillary Assessment and Plan Assessment and Plan (1) Sinus infection: Status: Acute Qualifiers: Chronicity: acute Recurrence: non-recurrent Sinusitis location: maxillary Qualified Code(s): J01.00 - Acute maxillary sinusitis, unspecified Plan: If prescribed antibiotics take the full course even if feeling better. Warm salt water gargles, warm tea with honey, increase fluids, saline nasal spray 2 squirts each nostril every 2 hours as needed, Flonase nasal spray 1 squirt once a day, cetirizine (Zyrtec) one daily, cool mist humidifier, Tylenol and or ibuprofen as needed for fever or discomfort. Please follow up with your Primary Care Physician for ongoing chronic problems. If symptoms change or worsen, please present to Emergency Room for further evaluation 1. See visit diagnoses, disposition, and orders. 2. Reviewed and updated medication list; Discussed probable diagnosis, test results if available in office today and management options with patient/guardian: agreed to the medical plan above 3. Education provided regarding visit today, see after visit summary. Instruction provided in the use of fluids, vaporizer, acetaminophen, and/or other OTC medication for symptom control. Explained use of antibiotics only for proven or strongly suspected bacterial infections. 4. Prevention and health maintenance with primary care provider. 5. Patient/guardian educated to proceed to ED with worsening of condition, changes, or failure to improve. Medications: New amoxicillin 500 mg PO BID 5 days 10 caps 0RF 11/01/23 1312 Date Enriqueta [facility] Cosigner Signature: Date (if applicable) CC: Normal [facility] No Panel Informationon 08-19 Glucose 2 Hour 75 gm Load See comment [facility] Work Phone: Comment on above: GLUC PPG 146 H Col: 08/19/22 1042Glucose result from 140 to <200 mg/dL suggestsIMPAIRED GLUCOSE HOMEOSTASIS per A.D.A. criteria. Absolute lymphocyte counton 08-14-2022 Lymphocytes Auto (Unsp spec) [#/Vol] 2.23 10*3/uL 0.83-4.51 [facility] Work Phone: Basophil percentageon 2021 Basophils/100 WBC (Bld) 0.2 % 0-1 [facility] Work Phone: Bilirubin [Mass/Vol] 0.40 mg/dL 0.20-1.00 [facility] Work Phone: Comment on above: For patients on eltr ombopag therapy, use of Dimension [place] TBIL is not recommended. Chloride [Moles/Vol] 103 mmol/L 98-107 [facility] Work Phone: Eosinophils/100 WBC (Bld) 1.1 % 0-5 [facility] Work Phone: Glucose [Mass/Vol] 124 mg/dL 74-106 [facility] Work Phone: Comment on above: Fasting Glucose resu lt from 100 to 125 mg/dL suggests IMPAIRED HOMEOSTASIS per A.D.A. criteria. Neutrophils (Bld) [#/Vol] 6.7 10*3/uL 2.0-7.7 [facility] Work Phone: Neutrophils/100 WBC (Bld) 70.8 % 47-70 [facility] Work Phone: Potassium [Moles/Vol] 3.7 mmol/L 3.5-5.1 [facility] Work Phone: Protein [Mass/Vol] 7.6 g/dL 6.4-8.2 [facility] Work Phone: Sodium [Moles/Vol] 139 mmol/L 136-145 [facility] Work Phone: WBC (Bld) [#/Vol] 9.5 10*3/uL 4.4-11.0 [facility] Work Phone: Blood erythrocytes count (nu mber/volume)on 08-14-2022 RBC (Bld) [#/Vol] 3.76 10*6/uL 4.2-5.4 [facility] Work Phone: Blood hemoglobin measurement (mass/volume)on 08-14-2022 Hemoglobin (Bld) [Mass/Vol] 9.3 g/dL 12.0-15.0 [facility] Work Phone: Blood lymphocytes/100 leukoc yteson 08-14-2022 Lymphocytes/100 WBC (Bld) 23.5 % 19-41 [facility] Work Phone: Blood monocytes/100 leukocyt eson 08-14-2022 Monocytes/100 WBC (Bld) 4.2 % 0-10 [facility] Work Phone: Blood platelet mean volumeon 08-14-2022 Platelet mean volume (Bld) [Entitic vol] 12.0 fL 6.2-12.0 [facility] Work Phone: Determination of erythrocyte mean corpuscular volume (MCV)on 08-14-2022 MCV (RBC) [Entitic vol] 83.8 fL 81-99 [facility] Work Phone: Hematocrit Auto (Bld) [Volum e fraction]on 08-14-2022 Hematocrit (Bld) [Volume fraction] 31.5 % 37-47 [facility] Work Phone: Laboratory - Chemistry and C hemistry - challengeon 08-14-2022 ALP [Catalytic activity/Vol] 93 U/L 45-117 [facility] Work Phone: ALT [Catalytic activity/Vol] 45 U/L 13-56 [facility] Work Phone: CO2 [Moles/Vol] 28.0 mmol/L 21.0-32.0 [facility] Work Phone: Globulin (S) [Mass/Vol] 4.0 g/dL 2.2-4.2 [facility] Work Phone: Urea nitrogen/Creatinine [Mass ratio] 12.9 mg/mg 10-20 [facility] Work Phone: Laboratory - Hematology and Cell countson 08-14-2022 Erythrocyte distribution width (RBC) [Entitic vol] 50.0 fL 35.1-43.9 [facility] Work Phone: Erythrocyte distribution width (RBC) [Ratio] 16.7 % 11.6-14.6 [facility] Work Phone: Immature granulocytes/100 WBC (Bld) 0.200 % 0.0-0.9 [facility] Work Phone: Comment on above: IG% - Immature Granu locytes (promyelocytes, myelocytes and metamyelocytes) > 1% indicates that a LEFT SHIFT is Present. MCH (RBC) [Entitic mass] 24.7 pg 27.0-32.0 [facility] Work Phone: Nucleated RBC/100 WBC (Bld) [Ratio] 0 % 0-5 [facility] Work Phone: MCHC Auto (RBC) [Mass/Vol]on 08-14-2022 MCHC (RBC) [Mass/Vol] 29.5 g/dL 32-36 [facility] Work Phone: No Panel Informationon 08-14 Estimated GFR (MDRD) Amer 132 mL/min >60 [facility] Work Phone: Comment on above: GFR Calc Estimated GFR (MDRD) Non-Af Amer 109 mL/min >60 [facility] Work Phone: Comment on above: Non- GFR Calc Platelets bldon 08-14-2022 Platelets (Bld) [#/Vol] 304 10*3/uL 150-450 [facility] Work Phone: Serum or plasma albumin roderick urement (mass/volume)on 08-14-2022 Albumin [Mass/Vol] 3.6 g/dL 3.2-5.0 [facility] Work Phone: Serum or plasma albumin/glob ulin mass ratioon 08-14-2022 Albumin/Globulin [Mass ratio] 0.9 {ratio} 0.9-2.4 [facility] Work Phone: Serum or plasma calcium roderick urement (mass/volume)on 08-14-2022 Calcium [Mass/Vol] 9.0 mg/dL 8.5-10.1 [facility] Work Phone: Serum or plasma creatinine m easurement (mass/volume)on 08-14-2022 Creatinine [Mass/Vol] 0.70 mg/dL 0.55-1.02 [facility] Work Phone: Comment on above: The validity of the calculated GFR & GFRAA in patients over 70 years has not been determined. Clinical correlation is essential. Serum or plasma urea nitroge n measurement (mass/volume)on 08-14-2022 Urea nitrogen [Mass/Vol] 9 mg/dL 7-18 [facility] Work Phone: Thin prep Papanicolaou smear with manual screeningon 08-14-2022 Thin prep Papanicolaou smear with manual screening 28 U/L 15-37 [facility] Work Phone: Thin prep Papanicolaou smear with manual screening 8 5-15 [facility] Work Phone: Thin prep Papanicolaou smear with manual screening 184 U/L 84-246 [facility] Work Phone: Absolute lymphocyte counton 07-12-2022 Lymphocytes Auto (Unsp spec) [#/Vol] 2.06 10*3/uL 0.83-4.51 [facility] Work Phone: Basophil percentageon 2021 Basophil percentage >100 SEEN /hpf 0-5 [facility] Work Phone: Basophils/100 WBC (Bld) 0.3 % 0-1 [facility] Work Phone: Chloride [Moles/Vol] 111 mmol/L 98-107 [facility] Work Phone: Eosinophils/100 WBC (Bld) 0.9 % 0-5 [facility] Work Phone: Glucose [Mass/Vol] 99 mg/dL 74-106 [facility] Work Phone: Neutrophils (Bld) [#/Vol] 4.8 10*3/uL 2.0-7.7 [facility] Work Phone: Neutrophils/100 WBC (Bld) 63.7 % 47-70 [facility] Work Phone: Potassium [Moles/Vol] 3.5 mmol/L 3.5-5.1 [facility] Work Phone: Sodium [Moles/Vol] 145 mmol/L 136-145 [facility] Work Phone: WBC (Bld) [#/Vol] 7.5 10*3/uL 4.4-11.0 [facility] Work Phone: Bilirubin Test strip Ql (U)o n 07-12-2022 Bilirubin Ql (U) Negative Negative [facility] Work Phone: Blood erythrocytes count (nu mber/volume)on 07-12-2022 RBC (Bld) [#/Vol] 3.18 10*6/uL 4.2-5.4 [facility] Work Phone: Blood hemoglobin measurement (mass/volume)on 07-12-2022 Hemoglobin (Bld) [Mass/Vol] 8.3 g/dL 12.0-15.0 [facility] Work Phone: Blood lymphocytes/100 leukoc yteson 07-12-2022 Lymphocytes/100 WBC (Bld) 27.6 % 19-41 [facility] Work Phone: Blood monocytes/100 leukocyt eson 07-12-2022 Monocytes/100 WBC (Bld) 5.4 % 0-10 [facility] Work Phone: Blood platelet mean volumeon 07-12-2022 Platelet mean volume (Bld) [Entitic vol] 11.0 fL 6.2-12.0 [facility] Work Phone: Determination of erythrocyte mean corpuscular volume (MCV)on 07-12-2022 MCV (RBC) [Entitic vol] 87.4 fL 81-99 [facility] Work Phone: Hematocrit Auto (Bld) [Volum e fraction]on 07-12-2022 Hematocrit (Bld) [Volume fraction] 27.8 % 37-47 [facility] Work Phone: Ketones Test strip Ql (U)on 07-12-2022 Ketones Ql (U) 5 mg/dl Negative [facility] Work Phone: Laboratory - Chemistry and C hemistry - challengeon 07-12-2022 CO2 [Moles/Vol] 25.0 mmol/L 21.0-32.0 [facility] Work Phone: Urea nitrogen/Creatinine [Mass ratio] 12.8 mg/mg 10-20 [facility] Work Phone: Laboratory - Hematology and Cell countson 07-12-2022 Erythrocyte distribution width (RBC) [Entitic vol] 52.1 fL 35.1-43.9 [facility] Work Phone: Erythrocyte distribution width (RBC) [Ratio] 17.8 % 11.6-14.6 [facility] Work Phone: Immature granulocytes/100 WBC (Bld) 2.100 % 0.0-0.9 [facility] Work Phone: Comment on above: IG% - Immature Granu locytes (promyelocytes, myelocytes and metamyelocytes) > 1% indicates that a LEFT SHIFT is Present. MCH (RBC) [Entitic mass] 26.1 pg 27.0-32.0 [facility] Work Phone: Nucleated RBC/100 WBC (Bld) [Ratio] 0.4 % 0-5 [facility] Work Phone: MCHC Auto (RBC) [Mass/Vol]on 07-12-2022 MCHC (RBC) [Mass/Vol] 29.9 g/dL 32-36 [facility] Work Phone: Mucus LM Ql (Urine sed)on Mucus Ql (Urine sed) 1+ /hpf [facility] Work Phone: Nitrite Test strip Ql (U)on 07-12-2022 Nitrite Ql (U) Negative Negative [facility] Work Phone: No Panel Informationon 07-12 Estimated Creatinine Clearance Calc 113.90 ml/min [facility] Work Phone: Estimated GFR (MDRD) Amer 150 mL/min >60 [facility] Work Phone: Comment on above: GFR Calc Estimated GFR (MDRD) Non-Af Amer 124 mL/min >60 [facility] Work Phone: Comment on above: Non- GFR Calc Troponin I High Sensitivity 4 pg/mL 3.0-54.0 [facility] Work Phone: Comment on above: Please Note: [place] t Units and Gender Specific Reference Ranges. For more information see Policy Stat Procedure [place] High Sensitivity Troponin (TNIH) and attachments. Platelets bldon 07-12-2022 Platelets (Bld) [#/Vol] 275 10*3/uL 150-450 [facility] Work Phone: Protein Test strip Ql (U)on 07-12-2022 Protein Ql (U) 100 mg/dl Negative [facility] Work Phone: Serum or plasma calcium roderick urement (mass/volume)on 07-12-2022 Calcium [Mass/Vol] 9.1 mg/dL 8.5-10.1 [facility] Work Phone: Serum or plasma creatinine m easurement (mass/volume)on 07-12-2022 Creatinine [Mass/Vol] 0.63 mg/dL 0.55-1.02 [facility] Work Phone: Comment on above: The validity of the calculated GFR & GFRAA in patients over 70 years has not been determined. Clinical correlation is essential. Serum or plasma urea nitroge n measurement (mass/volume)on 07-12-2022 Urea nitrogen [Mass/Vol] 8 mg/dL 7-18 [facility] Work Phone: Squamous epithelial cells de tection in urine sediment by light microscopyon 07-12-2022 Epithelial cells.squamous LM Ql (Urine sed) 5-10 SEEN /hpf 5-10 [facility] Work Phone: Thin prep Papanicolaou smear with manual screeningon 07-12-2022 Thin prep Papanicolaou smear with manual screening 9 5-15 [facility] Work Phone: Urine blood detectionon 06-29 RBC Ql (U) 250 /ul Negative [facility] Work Phone: RBC Ql (U) > 100 SEEN /hpf 0-5 [facility] Work Phone: Urine clarityon 10-14-2022 Clarity (U) Cloudy Clear [facility] Work Phone: Urine color determinationon 07-12-2022 Color (U) Red Yellow [facility] Work Phone: Urine glucose detectionon Glucose Ql (U) Normal mg/dl Normal [facility] Work Phone: Urine leukocyte esterase det ection by dipstickon 07-12-2022 Leukocyte esterase Test strip Ql (U) 500 /ul Negative [facility] Work Phone: Urine pHon 07-12-2022 pH (U) 5.0 [pH] 5.0 - 8.0 [facility] Work Phone: Urine sediment bacteria coun t by microscopy (number/high power field)on 07-12-2022 Bacteria LM.HPF (Urine sed) [#/Area] 3 /[HPF] None Seen [facility] Work Phone: Urine specific gravity measu rementon 07-12-2022 Specific gravity (U) [Rel density] 1.015 1.002-1.030 [facility] Work Phone: Urobilinogen Auto test strip Ql (U)on 07-12-2022 Urobilinogen Ql (U) Normal mg/dl Normal [facility] Work Phone: Basophil percentageon 2021 WBC (Bld) [#/Vol] 6.8 10*3/uL 4.4-11.0 [facility] Work Phone: Blood erythrocytes count (nu mber/volume)on 07-10-2022 RBC (Bld) [#/Vol] 2.65 10*6/uL 4.2-5.4 [facility] Work Phone: Blood hemoglobin measurement (mass/volume)on 07-10-2022 Hemoglobin (Bld) [Mass/Vol] 7.1 g/dL 12.0-15.0 [facility] Work Phone: Blood platelet mean volumeon 07-10-2022 Platelet mean volume (Bld) [Entitic vol] 11.5 fL 6.2-12.0 [facility] Work Phone: Determination of erythrocyte mean corpuscular volume (MCV)on 07-10-2022 MCV (RBC) [Entitic vol] 87.2 fL 81-99 [facility] Work Phone: Hematocrit Auto (Bld) [Volum e fraction]on 07-10-2022 Hematocrit (Bld) [Volume fraction] 23.1 % 37-47 [facility] Work Phone: Laboratory - Hematology and Cell countson 07-10-2022 Erythrocyte distribution width (RBC) [Entitic vol] 51.5 fL 35.1-43.9 [facility] Work Phone: Erythrocyte distribution width (RBC) [Ratio] 17.0 % 11.6-14.6 [facility] Work Phone: MCH (RBC) [Entitic mass] 26.8 pg 27.0-32.0 [facility] Work Phone: MCHC Auto (RBC) [Mass/Vol]on 07-10-2022 MCHC (RBC) [Mass/Vol] 30.7 g/dL 32-36 [facility] Work Phone: Platelets bldon 07-10-2022 Platelets (Bld) [#/Vol] 196 10*3/uL 150-450 [facility] Work Phone: Absolute lymphocyte counton 07-09-2022 Lymphocytes Auto (Unsp spec) [#/Vol] 2.44 10*3/uL 0.83-4.51 [facility] Work Phone: Basophil percentageon 2021 Basophils/100 WBC (Bld) 0.0 % 0-1 [facility] Work Phone: Eosinophils/100 WBC (Bld) 0.7 % 0-5 [facility] Work Phone: Neutrophils (Bld) [#/Vol] 4.6 10*3/uL 2.0-7.7 [facility] Work Phone: Neutrophils/100 WBC (Bld) 61.1 % 47-70 [facility] Work Phone: Blood lymphocytes/100 leukoc yteson 07-09-2022 Lymphocytes/100 WBC (Bld) 32.3 % 19-41 [facility] Work Phone: Blood monocytes/100 leukocyt eson 07-09-2022 Monocytes/100 WBC (Bld) 5.0 % 0-10 [facility] Work Phone: Laboratory - Hematology and Cell countson 07-09-2022 Immature granulocytes/100 WBC (Bld) 0.900 % 0.0-0.9 [facility] Work Phone: Comment on above: IG% - Immature Granu locytes (promyelocytes, myelocytes and metamyelocytes) > 1% indicates that a LEFT SHIFT is Present. Nucleated RBC/100 WBC (Bld) [Ratio] 0.3 % 0-5 [facility] Work Phone: Basophil percentageon 2021 Bilirubin [Mass/Vol] 0.20 mg/dL 0.20-1.00 [facility] Work Phone: Comment on above: For patients on eltr ombopag therapy, use of Dimension [place] TBIL is not recommended. Chloride [Moles/Vol] 107 mmol/L 98-107 [facility] Work Phone: Glucose [Mass/Vol] 81 mg/dL 74-106 [facility] Work Phone: Potassium [Moles/Vol] 3.5 mmol/L 3.5-5.1 [facility] Work Phone: Protein [Mass/Vol] 5.3 g/dL 6.4-8.2 [facility] Work Phone: Sodium [Moles/Vol] 141 mmol/L 136-145 [facility] Work Phone: Glucose Glucometer (BldC) [M ass/Vol]on 07-08-2022 Glucose [Mass/Vol] 83 mg/dL 74-106 [facility] Work Phone: Comment on above: MANAGEMENT OF PATIEN T CARE PER NURSING PROTOCOL Laboratory - Chemistry and C hemistry - challengeon 07-08-2022 ALP [Catalytic activity/Vol] 121 U/L 45-117 [facility] Work Phone: ALT [Catalytic activity/Vol] 14 U/L 13-56 [facility] Work Phone: CO2 [Moles/Vol] 25.0 mmol/L 21.0-32.0 [facility] Work Phone: Globulin (S) [Mass/Vol] 3.6 g/dL 2.2-4.2 [facility] Work Phone: Urea nitrogen/Creatinine [Mass ratio] 18.9 mg/mg 10-20 [facility] Work Phone: No Panel Informationon 07-08 Estimated Creatinine Clearance Calc 123.72 ml/min [facility] Work Phone: Estimated GFR (MDRD) Amer 164 mL/min >60 [facility] Work Phone: Comment on above: GFR Calc Estimated GFR (MDRD) Non-Af Amer 135 mL/min >60 [facility] Work Phone: Comment on above: Non- GFR Calc Serum or plasma albumin rodercik urement (mass/volume)on 07-08-2022 Albumin [Mass/Vol] 1.7 g/dL 3.2-5.0 [facility] Work Phone: Serum or plasma albumin/glob ulin mass ratioon 07-08-2022 Albumin/Globulin [Mass ratio] 0.5 {ratio} 0.9-2.4 [facility] Work Phone: Serum or plasma calcium roderick urement (mass/volume)on 07-08-2022 Calcium [Mass/Vol] 6.8 mg/dL 8.5-10.1 [facility] Work Phone: Serum or plasma creatinine m easurement (mass/volume)on 07-08-2022 Creatinine [Mass/Vol] 0.58 mg/dL 0.55-1.02 [facility] Work Phone: Comment on above: The validity of the calculated GFR & GFRAA in patients over 70 years has not been determined. Clinical correlation is essential. Serum or plasma urea nitroge n measurement (mass/volume)on 07-08-2022 Urea nitrogen [Mass/Vol] 11 mg/dL 7-18 [facility] Work Phone: Thin prep Papanicolaou smear with manual screeningon 07-08-2022 Thin prep Papanicolaou smear with manual screening 17 U/L 15-37 [facility] Work Phone: Thin prep Papanicolaou smear with manual screening 9 5-15 [facility] Work Phone: Laboratory - Chemistry and C hemistry - challengeon 07-07-2022 Magnesium [Mass/Vol] 5.6 mg/dL 1.6-2.6 [facility] Work Phone: Comment on above: Critical Result(s) C alled at: 23:14:03 07/07/2022 by: J Luis Robin to Renetta Patterson RN (WP). Results read back by same. Basophil percentageon 2021 Basophil percentage 0-5 SEEN /hpf 0-5 [facility] Work Phone: Bilirubin Test strip Ql (U)o n 07-05-2022 Bilirubin Ql (U) Negative Negative [facility] Work Phone: Ketones Test strip Ql (U)on 07-05-2022 Ketones Ql (U) 5 mg/dl Negative [facility] Work Phone: Mucus LM Ql (Urine sed)on Mucus Ql (Urine sed) 0 SEEN /hpf [facility] Work Phone: Nitrite Test strip Ql (U)on 07-05-2022 Nitrite Ql (U) Negative Negative [facility] Work Phone: Protein Test strip Ql (U)on 07-05-2022 Protein Ql (U) 30 mg/dl Negative [facility] Work Phone: Serum or plasma uric acid me asurement (mass/volume)on 07-05-2022 Urate [Mass/Vol] 6.7 mg/dL 2.6-6.0 [facility] Work Phone: Comment on above: The drugs N-Acetylcy steine and Metamizole may falsely depress this assay. Squamous epithelial cells de tection in urine sediment by light microscopyon 07-05-2022 Epithelial cells.squamous LM Ql (Urine sed) 5-10 SEEN /hpf 5-10 [facility] Work Phone: Thin prep Papanicolaou smear with manual screeningon 07-05-2022 Thin prep Papanicolaou smear with manual screening 189 U/L 84-246 [facility] Work Phone: Urine blood detectionon 10-0 RBC Ql (U) Negative Negative [facility] Work Phone: RBC Ql (U) 0 SEEN /hpf 0-5 [facility] Work Phone: Urine clarityon 07-05-2022 Clarity (U) Sl. Cloudy Clear [facility] Work Phone: Urine color determinationon 07-05-2022 Color (U) Yellow Yellow [facility] Work Phone: Urine creatinine measurement (mass/volume)on 07-05-2022 Creatinine (U) [Mass/Vol] 156.00 mg/dL NO RANGE EST. [facility] Work Phone: Urine glucose detectionon Glucose Ql (U) Normal mg/dl Normal [facility] Health Work Phone: Urine leukocyte esterase det ection by dipstickon 07-05-2022 Leukocyte esterase Test strip Ql (U) 25 /ul Negative [facility] Work Phone: Urine pHon 07-05-2022 pH (U) 6.0 [pH] 5.0 - 8.0 [facility] Work Phone: Urine protein measurement (m ass/volume)on 07-05-2022 Protein (U) [Mass/Vol] 56.2 mg/dL 0.0-11.8 [facility] Work Phone: Urine protein/creatinine mas s ratioon 07-05-2022 Protein/Creatinine (U) [Mass ratio] 360 mg/g CRE 0-200 [facility] Work Phone: Urine sediment bacteria coun t by microscopy (number/high power field)on 07-05-2022 Bacteria LM.HPF (Urine sed) [#/Area] 2 /[HPF] None Seen [facility] Work Phone: Urine specific gravity measu rementon 07-05-2022 Specific gravity (U) [Rel density] 1.025 1.002-1.030 [facility] Work Phone: Urobilinogen Auto test strip Ql (U)on 07-05-2022 Urobilinogen Ql (U) Normal mg/dl Normal [facility] Work Phone: Absolute lymphocyte counton 05-22-2022 Lymphocytes Auto (Unsp spec) [#/Vol] 3.36 10*3/uL 0.83-4.51 [facility] Work Phone: Basophil percentageon 2021 Basophils/100 WBC (Bld) 0.1 % 0-1 [facility] Work Phone: Eosinophils/100 WBC (Bld) 0.4 % 0-5 [facility] Work Phone: Neutrophils (Bld) [#/Vol] 9.7 10*3/uL 2.0-7.7 [facility] Work Phone: Neutrophils/100 WBC (Bld) 70.0 % 47-70 [facility] Work Phone: WBC (Bld) [#/Vol] 13.8 10*3/uL 4.4-11.0 [facility] Work Phone: Basophil percentage 5-10 SEEN /hpf 0-5 [facility] Work Phone: Bilirubin Test strip Ql (U)o n 05-22-2022 Bilirubin Ql (U) Negative Negative [facility] Work Phone: Blood erythrocytes count (nu mber/volume)on 05-22-2022 RBC (Bld) [#/Vol] 3.97 10*6/uL 4.2-5.4 [facility] Work Phone: Blood hemoglobin measurement (mass/volume)on 05-22-2022 Hemoglobin (Bld) [Mass/Vol] 10.6 g/dL 12.0-15.0 [facility] Work Phone: Blood lymphocytes/100 leukoc yteson 05-22-2022 Lymphocytes/100 WBC (Bld) 24.3 % 19-41 [facility] Work Phone: Blood monocytes/100 leukocyt eson 05-22-2022 Monocytes/100 WBC (Bld) 4.8 % 0-10 [facility] Work Phone: Blood platelet mean volumeon 05-22-2022 Platelet mean volume (Bld) [Entitic vol] 12.6 fL 6.2-12.0 [facility] Work Phone: Determination of erythrocyte mean corpuscular volume (MCV)on 05-22-2022 MCV (RBC) [Entitic vol] 83.4 fL 81-99 [facility] Work Phone: Hematocrit Auto (Bld) [Volum e fraction]on 05-22-2022 Hematocrit (Bld) [Volume fraction] 33.1 % 37-47 [facility] Work Phone: Ketones Test strip Ql (U)on 05-22-2022 Ketones Ql (U) 15 mg/dl Negative [facility] Work Phone: Laboratory - Hematology and Cell countson 05-22-2022 Erythrocyte distribution width (RBC) [Entitic vol] 45.0 fL 35.1-43.9 [facility] Work Phone: Erythrocyte distribution width (RBC) [Ratio] 14.9 % 11.6-14.6 [facility] Work Phone: Immature granulocytes/100 WBC (Bld) 0.400 % 0.0-0.9 [facility] Work Phone: Comment on above: IG% - Immature Granu locytes (promyelocytes, myelocytes and metamyelocytes) > 1% indicates that a LEFT SHIFT is Present. MCH (RBC) [Entitic mass] 26.7 pg 27.0-32.0 [facility] Work Phone: Nucleated RBC/100 WBC (Bld) [Ratio] 0 % 0-5 [facility] Work Phone: MCHC Auto (RBC) [Mass/Vol]on 05-22-2022 MCHC (RBC) [Mass/Vol] 32.0 g/dL 32-36 [facility] Work Phone: Mucus LM Ql (Urine sed)on Mucus Ql (Urine sed) 0 SEEN [facility]: Nitrite Test strip Ql (U)on 05-22-2022 Nitrite Ql (U) Negative Negative [facility] Work Phone: No Panel Informationon 05-22 Urine Transitional Epithelial Cells 0-5 SEEN /hpf 0-5 [facility] Work Phone: Platelets bldon 05-22-2022 Platelets (Bld) [#/Vol] 249 10*3/uL 150-450 [facility] Work Phone: Protein Test strip Ql (U)on 05-22-2022 Protein Ql (U) 30 mg/dl Negative [facility] Work Phone: Squamous epithelial cells de tection in urine sediment by light microscopyon 05-22-2022 Epithelial cells.squamous LM Ql (Urine sed) 10-25 SEEN /hpf 5-10 [facility] Work Phone: Urine blood detectionon 04-30 RBC Ql (U) Negative Negative [facility] Work Phone: RBC Ql (U) 0-5 SEEN /hpf 0-5 [facility] Work Phone: Urine clarityon 05-22-2022 Clarity (U) Sl. Cloudy Clear [facility] Work Phone: Urine color determinationon 05-22-2022 Color (U) Yellow Yellow [facility] Work Phone: Urine glucose detectionon Glucose Ql (U) Normal mg/dl Normal [facility] Work Phone: Urine leukocyte esterase det ection by dipstickon 05-22-2022 Leukocyte esterase Test strip Ql (U) 25 /ul Negative [facility] Work Phone: Urine pHon 05-22-2022 pH (U) 6.0 [pH] 5.0 - 8.0 [facility] Work Phone: Urine sediment bacteria coun t by microscopy (number/high power field)on 05-22-2022 Bacteria LM.HPF (Urine sed) [#/Area] 4 /[HPF] None Seen [facility] Work Phone: Urine specific gravity measu rementon 05-22-2022 Specific gravity (U) [Rel density] 1.025 1.002-1.030 [facility] Work Phone: Urobilinogen Auto test strip Ql (U)on 05-22-2022 Urobilinogen Ql (U) Normal mg/dl Normal [facility] Work Phone: Quantitative serum or plasma 3 hour gestational glucose tolerance panelon 05-21-2022 Glucose tolerance 3 hours gestational panel See comment [facility] Work Phone: Comment on above: FASTING 106 H Col: 0 05/21/22 0849GLUCOSE TOLERANCE TEST FOR Reference Interval GESTATIONAL DIABETES Fasting <105 mg/dL 1 hour <190 mg/dl 2 hour <165 mg/dl 3 hour <145 mg/dl 1 HR GLU 176 Col: 05/21/22 0949 2 HR GLU 110 Col: 05/21/22 1049 3 HR GLU 164 H Col: 05/21/22 1149 Basophil percentageon 2021 Basophil percentage 5-10 SEEN /hpf 0-5 [facility] Work Phone: Bilirubin Test strip Ql (U)o n 04-25-2022 Bilirubin Ql (U) Negative Negative [facility] Work Phone: Calcium oxalate crystals det ection in urine sediment by light microscopyon 04-25-2022 Calcium oxalate crystals LM Ql (Urine sed) 2+ /hpf [facility] Work Phone: Ketones Test strip Ql (U)on 04-25-2022 Ketones Ql (U) 5 mg/dl Negative [facility] Work Phone: Mucus LM Ql (Urine sed)on Mucus Ql (Urine sed) 0 SEEN /hpf [facility] Work Phone: Nitrite Test strip Ql (U)on 04-25-2022 Nitrite Ql (U) Negative Negative [facility] Work Phone: Protein Test strip Ql (U)on 04-25-2022 Protein Ql (U) 15 mg/dl Negative [facility] Work Phone: Squamous epithelial cells de tection in urine sediment by light microscopyon 04-25-2022 Epithelial cells.squamous LM Ql (Urine sed) 10-25 SEEN /hpf 5-10 [facility] Work Phone: Urine blood detectionon 03-30 RBC Ql (U) 10 /ul Negative [facility] Work Phone: RBC Ql (U) 0 SEEN /hpf 0-5 [facility] Work Phone: Urine clarityon 04-25-2022 Clarity (U) Sl. Cloudy Clear [facility] Work Phone: Urine color determinationon 04-25-2022 Color (U) Yellow Yellow [facility] Work Phone: Urine glucose detectionon Glucose Ql (U) Normal mg/dl Normal [facility] Work Phone: Urine leukocyte esterase det ection by dipstickon 04-25-2022 Leukocyte esterase Test strip Ql (U) 25 /ul Negative [facility] Work Phone: Urine pHon 04-25-2022 pH (U) 6.0 [pH] 5.0 - 8.0 [facility] Work Phone: Urine sediment bacteria coun t by microscopy (number/high power field)on 04-25-2022 Bacteria LM.HPF (Urine sed) [#/Area] 2 /[HPF] None Seen [facility] Work Phone: Urine specific gravity measu rementon 04-25-2022 Specific gravity (U) [Rel density] 1.025 1.002-1.030 [facility] Work Phone: Urobilinogen Auto test strip Ql (U)on 04-25-2022 Urobilinogen Ql (U) Normal mg/dl Normal [facility] Work Phone: Basophil percentageon 2021 WBC (Bld) [#/Vol] 12.9 10*3/uL 4.4-11.0 [facility] Work Phone: Blood erythrocytes count (nu mber/volume)on 04-05-2022 RBC (Bld) [#/Vol] 3.90 10*6/uL 4.2-5.4 [facility] Work Phone: Blood hemoglobin measurement (mass/volume)on 04-05-2022 Hemoglobin (Bld) [Mass/Vol] 11.2 g/dL 12.0-15.0 [facility] Work Phone: Blood platelet mean volumeon 04-05-2022 Platelet mean volume (Bld) [Entitic vol] 12.3 fL 6.2-12.0 [facility] Work Phone: Determination of erythrocyte mean corpuscular volume (MCV)on 04-05-2022 MCV (RBC) [Entitic vol] 87.7 fL 81-99 [facility] Work Phone: Gestational diabetes screen 1-hour screen with 50g oral glucose loadon 04-05-2022 Glucose 1 Hr post 50 g glucose PO [Mass/Vol] 162 mg/dL 70-140 [facility] Work Phone: Hematocrit Auto (Bld) [Volum e fraction]on 04-05-2022 Hematocrit (Bld) [Volume fraction] 34.2 % 37-47 [facility] Work Phone: Laboratory - Hematology and Cell countson 04-05-2022 Erythrocyte distribution width (RBC) [Entitic vol] 45.9 fL 35.1-43.9 [facility] Work Phone: Erythrocyte distribution width (RBC) [Ratio] 14.5 % 11.6-14.6 [facility] Work Phone: MCH (RBC) [Entitic mass] 28.7 pg 27.0-32.0 [facility] Work Phone: MCHC Auto (RBC) [Mass/Vol]on 04-05-2022 MCHC (RBC) [Mass/Vol] 32.7 g/dL 32-36 [facility] Work Phone: Platelets bldon 04-05-2022 Platelets (Bld) [#/Vol] 264 10*3/uL 150-450 [facility] Work Phone: Absolute lymphocyte counton 12-27-2021 Lymphocytes Auto (Unsp spec) [#/Vol] 2.84 10*3/uL 0.83-4.51 [facility] Work Phone: Basophil percentageon 2021 Basophils/100 WBC (Bld) 0.2 % 0-1 [facility] Work Phone: Eosinophils/100 WBC (Bld) 1.0 % 0-5 [facility] Work Phone: Neutrophils (Bld) [#/Vol] 6.0 10*3/uL 2.0-7.7 [facility] Work Phone: Neutrophils/100 WBC (Bld) 63.5 % 47-70 [facility] Work Phone: WBC (Bld) [#/Vol] 9.4 10*3/uL 4.4-11.0 [facility] Work Phone: Blood erythrocytes count (nu mber/volume)on 12-27-2021 RBC (Bld) [#/Vol] 4.26 10*6/uL 4.2-5.4 [facility] Work Phone: Blood hemoglobin measurement (mass/volume)on 12-27-2021 Hemoglobin (Bld) [Mass/Vol] 12.0 g/dL 12.0-15.0 [facility] Work Phone: Blood lymphocytes/100 leukoc yteson 12-27-2021 Lymphocytes/100 WBC (Bld) 30.2 % 19-41 [facility] Work Phone: Blood monocytes/100 leukocyt eson 12-27-2021 Monocytes/100 WBC (Bld) 4.8 % 0-10 [facility] Work Phone: Blood platelet mean volumeon 12-27-2021 Platelet mean volume (Bld) [Entitic vol] 12.2 fL 6.2-12.0 [facility] Work Phone: Cervical or vagninal specime n microscopic examination by cytology stain (reported ason 12-27-2021 Cytology report Cyto stain Doc (Cvx/Vag) Comment . [facility] Work Phone: Comment on above: The Pap smear is a s creening test designed to aid in thedetection of premalignant and malignant conditions of theuterine cervix. It is not a diagnostic procedure andshould not be used as the sole means of detecting cervicalcancer. Both false-positive and false-negative reports dooccur. Chlamydia trachomatis rRNA d etection by probe and target amplification methodon 12-27-2021 C. trachomatis rRNA OREN+probe Ql (Unsp spec) Negative Negative [facility] Work Phone: Culture, urineon 12-27-2021 Bacteria identified Cx Nom (U) Positive [facility] Work Phone: Determination of erythrocyte mean corpuscular volume (MCV)on 12-27-2021 MCV (RBC) [Entitic vol] 82.4 fL 81-99 [facility] Work Phone: HIV 1 and HIV-2 antibody ass ay with HIV-1 p24 antigen detectionon 12-27-2021 HIV 1+2 Ab+HIV1 p24 Ag IA Ql Non-Reactive Nonreactive [facility] Work Phone: Hematocrit Auto (Bld) [Volum e fraction]on 12-27-2021 Hematocrit (Bld) [Volume fraction] 35.1 % 37-47 [facility] Work Phone: Laboratory - Cytologyon 11-29 [employer] Cyto stain Nom (Cvx/Vag) [ID] Comment . [facility] Work Phone: Comment on above: Bindu Shearer Cyto technologist (ASCP) Laboratory - Hematology and Cell countson 12-27-2021 Erythrocyte distribution width (RBC) [Entitic vol] 40.5 fL 35.1-43.9 [facility] Work Phone: Erythrocyte distribution width (RBC) [Ratio] 13.8 % 11.6-14.6 [facility] Work Phone: Immature granulocytes/100 WBC (Bld) 0.300 % 0.0-0.9 [facility] Work Phone: Comment on above: IG% - Immature Granu locytes (promyelocytes, myelocytes and metamyelocytes) > 1% indicates that a LEFT SHIFT is Present. MCH (RBC) [Entitic mass] 28.2 pg 27.0-32.0 [facility] Work Phone: Nucleated RBC/100 WBC (Bld) [Ratio] 0 % 0-5 [facility] Work Phone: Laboratory - Microbiology an d Antimicrobial susceptibilityon 12-27-2021 N. gonorrhoeae DNA OREN+probe Ql (Unsp spec) Negative Negative [facility] Work Phone: Comment on above: Performed at: =G [address] [id number] Director: Stephanie Red MD, Phone: [phone] Laboratory - Miscellaneous t estson 12-27-2021 Service comment (Unsp spec) [Interp] Comment . [facility] Work Phone: Comment on above: This liquid based Th inPrep(R) pap test was screened withthe use of an image guided system. Service comment (Unsp spec) [Interp] . . [facility] Work Phone: MCHC Auto (RBC) [Mass/Vol]on 12-27-2021 MCHC (RBC) [Mass/Vol] 34.2 g/dL 32-36 [facility] Work Phone: No Panel Informationon 12-27 Human Papillomavirus Screen Comment . [facility] Work Phone: Comment on above: The HPV DNA reflex c riteria were not met with this specimenresult therefore, no HPV testing was performed.Performed at: [address] [id number] Director: Stephanie Red MD, Phone: [phone] Pathology report final diagnosis Narrative Comment . [facility] Work Phone: Comment on above: NEGATIVE FOR INTRAEP ITHELIAL LESION OR MALIGNANCY. Hepatitis B Surface Antigen Non-Reactive Nonreactive [facility] Work Phone: Hepatitis C Antibody Non-Reactive Nonreactive [facility] Work Phone: Comment on above: Non Reactive: < 0.8 Equivocal: >/= 0.8 to < 1.0 Reactive: >/= 1.0The CDC recommends that a reactive/equivocal HCV antibody result be followed up by the HCV Nucleic Acid Amplificationtest (068047) Rubella IgG Antibody Reactive Nonreactive [facility] Work Phone: Comment on above: Antibody Results Int erpretation of Immune Status Non Reactive Presumed Non-Immune Equivocal Equivocal Reactive Presumed Immune Platelets bldon 12-27-2021 Platelets (Bld) [#/Vol] 288 10*3/uL 150-450 [facility] Work Phone: Serum Treponema species anti body detectionon 12-27-2021 Treponema sp Ab Ql (S) Non-Reactive [facility] Work Phone: .Auto Diffon 06-10-2020 Ammonia (P) [Mass/Vol] 0.40 10 3/mcL Normal 0.15-1.00 [facility] Comment on above: Performed By: #### C BC, ADIFF, ANEU, TSH, CMP, GFR #### [place] [address] #### LH, PROL, FSH #### [address] [address] Basophils (Bld) [#/Vol] 0.00 10 3/mcL Normal 0.00-0.19 [facility] Comment on above: Performed By: #### C BC, ADIFF, ANEU, TSH, CMP, GFR #### [place] [address] #### LH, PROL, FSH #### [address] [address] Basophils/100 WBC (Bld) 0.6 % Normal 0.0-2.5 [facility] [place] Comment on above: Performed By: #### C BC, ADIFF, ANEU, TSH, CMP, GFR #### [place] [address] #### LH, PROL, FSH #### [address] [address] Eosinophils (Bld) [#/Vol] 0.00 10 3/mcL Normal 0.00-0.40 [facility] ([place] Comment on above: Performed By: #### C BC, ADIFF, ANEU, TSH, CMP, GFR #### [place] [address] #### LH, PROL, FSH #### [address] [address] Eosinophils/100 WBC (Bld) 0.5 % Normal 0.0-7.0 [facility] [place] Comment on above: Performed By: #### C BC, ADIFF, ANEU, TSH, CMP, GFR #### [place] [address] #### LH, PROL, FSH #### [address] [address] Lymphocytes (Bld) [#/Vol] 2.90 10 3/mcL Normal 0.77-3.85 [facility] [place] Comment on above: Performed By: #### C BC, ADIFF, ANEU, TSH, CMP, GFR #### [place] [address] #### LH, PROL, FSH #### [address] [address] Lymphocytes/100 WBC (Bld) 37.4 % Normal 10.0-50.0 [facility] [place] Comment on above: Performed By: #### C BC, ADIFF, ANEU, TSH, CMP, GFR #### [place] [address] #### LH, PROL, FSH #### [address] [address] Monocytes/100 WBC (Bld) 4.6 % Normal 1.7-13.0 [facility] [place] Comment on above: Performed By: #### C BC, ADIFF, ANEU, TSH, CMP, GFR #### [place] [address] #### LH, PROL, FSH #### [address] [address] Neutrophils/100 WBC (Bld) 56.9 % Normal 37.0-80.0 [facility] [place] Comment on above: Performed By: #### C BC, ADIFF, ANEU, TSH, CMP, GFR #### [place] [address] #### LH, PROL, FSH #### [address] [address] .GFRon 06-10-2020 GFR 141 ml/min/1.73sqm Normal [facility] [place] Comment on above: Result Comment: GFR Population mean for , Non- Americans Ages 20-29 = 116 mL/min/1.73 sq.m. Ages 30-39 = 107 mL/min/1.73 sq.m. Ages 40-49 = 99 mL/min/1.73 sq.m. Ages 50-59 = 93 mL/min/1.73 sq.m. Ages 60-69 = 85 mL/min/1.73 sq.m. Ages 70+ = 75 mL/min/1.73 sq.m. Chronic Kidney Disease: Less than 60 mL/min/1.73 square meters End Stage Renal Disease: Less than 15 mL/min/1.73 square meters Performed By: #### C BC, ADIFF, ANEU #### [address] [address] #### GFR, TSH, LIPID, CMP #### [address] [address] GFR Non- 116 ml/min/1.73sqm Normal [facility] ([place]) Comment on above: Result Comment: GFR Population mean for , Non- Americans Ages 20-29 = 116 mL/min/1.73 sq.m. Ages 30-39 = 107 mL/min/1.73 sq.m. Ages 40-49 = 99 mL/min/1.73 sq.m. Ages 50-59 = 93 mL/min/1.73 sq.m. Ages 60-69 = 85 mL/min/1.73 sq.m. Ages 70+ = 75 mL/min/1.73 sq.m. Chronic Kidney Disease: Less than 60 mL/min/1.73 square meters End Stage Renal Disease: Less than 15 mL/min/1.73 square meters Performed By: #### C BC, ADIFF, ANEU #### [address] [address] #### GFR, TSH, LIPID, CMP #### [address] [address] .NEUABSon 06-10-2020 Neutrophils (Bld) [#/Vol] 4.40 10 3/mcL Normal 2.85-6.16 [facility] [place] Comment on above: Performed By: #### C BC, ADIFF, ANEU, TSH, CMP, GFR #### [place] [address] #### LH, PROL, FSH #### [address] [address] CBCon 06-10-2020 Erythrocyte distribution width (RBC) [Ratio] 13.8 % Normal 11.5-14.5 [facility] [place] Comment on above: Performed By: #### C BC, ADIFF, ANEU, TSH, CMP, GFR #### [place] [address] #### LH, PROL, FSH #### [place] [address] Hematocrit (Bld) [Volume fraction] 40.5 % Normal 37.0-47.0 [facility] [place] Comment on above: Performed By: #### C BC, ADIFF, ANEU, TSH, CMP, GFR #### [place] [address] #### LH, PROL, FSH #### [place] [address] Hemoglobin (Bld) [Mass/Vol] 13.4 G/dL Normal 12.0-16.0 [facility] [place] Comment on above: Performed By: #### C BC, ADIFF, ANEU, TSH, CMP, GFR #### [place] [address] #### LH, PROL, FSH #### [place] [address] MCH (RBC) [Entitic mass] 28.3 pg Normal 27.0-31.2 [facility] [place] Comment on above: Performed By: #### C BC, ADIFF, ANEU, TSH, CMP, GFR #### [place] [address] #### LH, PROL, FSH #### [place] [id number] MCHC (RBC) [Mass/Vol] 33.2 G/dL Normal 33.0-37.0 [facility] [place] Comment on above: Performed By: #### C BC, ADIFF, ANEU, TSH, CMP, GFR #### [address] [address] #### LH, PROL, FSH #### [address] [address] MCV (RBC) [Entitic vol] 85.4 fL Normal 80.0-94.0 [facility] [place] Comment on above: Performed By: #### C BC, ADIFF, ANEU, TSH, CMP, GFR #### [place] [address] #### LH, PROL, FSH #### [address] [address] Platelet mean volume (Bld) [Entitic vol] 10.1 fL Normal 7.4-10.4 [facility] ([place]) Comment on above: Performed By: #### C BC, ADIFF, ANEU, TSH, CMP, GFR #### [place] [address] #### LH, PROL, FSH #### [address] [address] Platelets (Bld) [#/Vol] 251 10 3/mcL Normal 130-400 [facility] [place] Comment on above: Performed By: #### C BC, ADIFF, ANEU, TSH, CMP, GFR #### [place] [address] #### LH, PROL, FSH #### [address] [address] RBC (Bld) [#/Vol] 4.74 10 6/mcL Normal 4.20-5.40 [facility] ([place]) Comment on above: Performed By: #### C BC, ADIFF, ANEU, TSH, CMP, GFR #### [place] [address] #### LH, PROL, FSH #### [address] [address] WBC (Bld) [#/Vol] 7.70 10 3/mcL Normal 4.60-10.80 [facility] ([place]) Comment on above: Performed By: #### C BC, ADIFF, ANEU, TSH, CMP, GFR #### [address] [address] #### LH, PROL, FSH #### [address] [address] CMPon 06-10-2020 Albumin [Mass/Vol] 4.0 G/dL Normal 3.5-5.0 [facility] Comment on above: Performed By: #### C BC, ADIFF, ANEU #### [place] [address] #### GFR, TSH, LIPID, CMP #### [place] [address] Albumin/Globulin [Mass ratio] 1.1 {ratio} Normal 1.1-2.5 [facility] [place] Comment on above: Performed By: #### C BC, ADIFF, ANEU #### [place] [address] #### GFR, TSH, LIPID, CMP #### [address] [address] ALP [Catalytic activity/Vol] 78 U/L Normal 40-135 [facility] ([place] Comment on above: Performed By: #### C BC, ADIFF, ANEU #### [place] [address] #### GFR, TSH, LIPID, CMP #### [address] [address] ALT [Catalytic activity/Vol] 68 U/L High 10-35 [facility] [place] Comment on above: Performed By: #### C BC, ADIFF, ANEU #### [place] [address] #### GFR, TSH, LIPID, CMP #### [place] [id number] AST [Catalytic activity/Vol] 35 U/L Normal 10-40 [facility] [place] Comment on above: Performed By: #### C BC, ADIFF, ANEU #### [address] [address] #### GFR, TSH, LIPID, CMP #### [address] [address] Bili Total 0.4 mg/dL Normal 0.2-1.0 [facility] ([place] Comment on above: Result Comment: Use of this assay is not recommended for patients undergoing treatment with eltrombopag due to the potential for falsely elevated results. Performed By: #### C BC, ADIFF, ANEU #### [place] [address] #### GFR, TSH, LIPID, CMP #### [address] [address] Calcium [Mass/Vol] 9.4 mg/dL Normal 8.4-10.2 [facility] Comment on above: Performed By: #### C BC ADIFF, ANEU #### [address] [address] #### GFR, TSH, LIPID, CMP #### [address] [address] Chloride [Moles/Vol] 102 mmol/L Normal 98-107 [facility] ([place]) Comment on above: Performed By: #### C BCRAMONEIFF, ANEU #### [place] [address] #### GFR, TSH, LIPID, CMP #### [address] [address] CO2 [Moles/Vol] 31 mmol/L High 22-29 [facility] ([place]) Comment on above: Performed By: #### C BC, ADIFF, ANEU #### [address] [address] #### GFR, TSH, LIPID, CMP #### [address] [address] Creatinine [Mass/Vol] 0.64 mg/dL Normal 0.55-1.02 [facility] ([place] Comment on above: Performed By: #### C BC, ADIFF, ANEU #### [address] [address] #### GFR, TSH, LIPID, CMP #### [address] [address] Electrolyte Balance 9.0 mEq/L Normal [facility] ([place]) Comment on above: Performed By: #### C BC, ADIFF, ANEU #### [address] [address] #### GFR, TSH, LIPID, CMP #### [address] [address] Globulin (S) [Mass/Vol] 3.6 G/dL Normal [facility] ([place] Comment on above: Performed By: #### C BC, ADIFF, ANEU #### [place] [address] #### GFR, TSH, LIPID, CMP #### [address] [address] Glucose [Mass/Vol] 115 mg/dL High 70-105 [facility] Comment on above: Performed By: #### C BC, ADIFF, ANEU #### [address] [address] #### GFR, TSH, LIPID, CMP #### [address] [address] Potassium [Moles/Vol] 4.6 mmol/L Normal 3.5-5.1 [facility] [place] Comment on above: Performed By: #### C BC, ADIFF, ANEU #### [address] [address] #### GFR, TSH, LIPID, CMP #### [address] [address] Protein [Mass/Vol] 7.6 G/dL Normal 6.4-8.2 [facility] Comment on above: Performed By: #### C BC, ADIFF, ANEU #### [address] [address] #### GFR, TSH, LIPID, CMP #### [facility] [address] [place] [address] Sodium [Moles/Vol] 142 mmol/L Normal 136-145 [facility] [place] Comment on above: Performed By: #### C BC, ADIFF, ANEU #### [address] [address] #### GFR, TSH, LIPID, CMP #### [address] [address] Urea nitrogen [Mass/Vol] 11 mg/dL Normal 7-18 [facility] [place] Comment on above: Performed By: #### C BC, ADIFF, ANEU #### [address] [address] #### GFR, TSH, LIPID, CMP #### [address] [address] Urea nitrogen/Creatinine [Mass ratio] 17 ratio Normal 7-27 [facility] [place] Comment on above: Performed By: #### C BC, ADIFF, ANEU #### [address] [address] #### GFR, TSH, LIPID, CMP #### [address] [address] FSHon 06-10-2020 FSH 5.7 mIU/mL Normal [facility] ([place] Comment on above: Result Comment: Adul t Female FSH Reference Ranges (08/22/99): Follicular phase 2.5 - 10.2 mIU/mL Midcycle phase 3.4 - 33.4 mIU/mL Luteal phase 1.5 - 9.1 mIU/mL Post menopausal 23.0 -116.3 mIU/mL Adult Male: 1.4 - 18.1 mIU/mL Performed By: #### C BC, ADIFF, ANEU #### [address] [address] #### GFR, TSH, LIPID, CMP #### [address] [address] LHon 06-10-2020 LH 13.3 mIU/mL Normal [facility] ([place]) Comment on above: Result Comment: No te - New Reference Range in effect 20Adult Female LH Reference Ranges: Follicular phase 1.9 - 12.5 mIU/mL Midcycle phase 8.7 - 76.3 mIU/mL Luteal phase 0.5 - 16.9 mIU/mL Post menopausal 5.0 - 55.2 mIU/mL Performed By: #### C BC, ADIFF, ANEU #### [place] [address] #### GFR, TSH, LIPID, CMP #### [place] [address] PROLon 06-10-2020 Prolactin 7.5 ng/mL Normal 2.0-30.0 [facility] ([place]) Comment on above: Performed By: #### C BC, ADIFF, ANEU #### [place] [address] #### GFR, TSH, LIPID, CMP #### [place] [address] TSHon 06-10-2020 TSH Qn 1.98 mcIU/mL Normal 0.36-3.74 [facility] ([place]) Comment on above: Performed By: #### C BC, ADIFF, ANEU #### [place] [address] #### GFR, TSH, LIPID, CMP #### [place] [address] .Auto Diffon 11-30-2019 Ammonia (P) [Mass/Vol] 0.30 10 3/mcL Normal 0.15-1.00 [facility] ([place]) Comment on above: Performed By: #### C BC, ADIFF, ANEU #### [place] [address] #### GFR, TSH, LIPID, CMP #### [place] [address] Basophils (Bld) [#/Vol] 0.00 10 3/mcL Normal 0.00-0.19 [facility] ([place]) Comment on above: Performed By: #### C RAMONE EVERETTIFF, ANEU #### [address] [address] #### GFR, TSH, LIPID, CMP #### [address] [address] Basophils/100 WBC (Bld) 0.4 % Normal 0.0-2.5 [facility] ([place]) Comment on above: Performed By: #### C KARLOS, ADIFF, ANEU #### [address] [address] #### GFR, TSH, LIPID, CMP #### [address] [address] Eosinophils (Bld) [#/Vol] 0.10 10 3/mcL Normal 0.00-0.40 [facility] ([place]) Comment on above: Performed By: #### C KARLOS, ADIFF, ANEU #### [address] [address] #### GFR, TSH, LIPID, CMP #### [address] [address] Eosinophils/100 WBC (Bld) 0.9 % Normal 0.0-7.0 [facility] ([place]) Comment on above: Performed By: #### ANJU GARNETT, ANEU #### [place] [address] #### GFR, TSH, LIPID, CMP #### [address] [address] Lymphocytes (Bld) [#/Vol] 3.00 10 3/mcL Normal 0.77-3.85 [facility] ([place]) Comment on above: Performed By: #### C BC, ADIFF, ANEU #### [address] [address] #### GFR, TSH, LIPID, CMP #### [address] [address] Lymphocytes/100 WBC (Bld) 39.8 % Normal 10.0-50.0 [facility] ([place] Comment on above: Performed By: #### C BC ADIFF, ANEU #### [address] [address] #### GFR, TSH, LIPID, CMP #### [address] [address] Monocytes/100 WBC (Bld) 4.1 % Normal 1.7-13.0 [facility] ([place] Comment on above: Performed By: #### C BC, ADIFF, ANEU #### [address] [address] #### GFR, TSH, LIPID, CMP #### [address] [address] Neutrophils/100 WBC (Bld) 54.8 % Normal 37.0-80.0 [facility] ([place]) Comment on above: Performed By: #### C BCRAMONEIFF, ANEU #### [address] [address] #### GFR, TSH, LIPID, CMP #### [address] [address] .GFRon 11-30-2019 GFR Non- 117 ml/min/1.73sqm Normal [facility] ([place]) Comment on above: Result Comment: GFR Population mean for , Non- Americans Ages 20-29 = 116 mL/min/1.73 sq.m. Ages 30-39 = 107 mL/min/1.73 sq.m. Ages 40-49 = 99 mL/min/1.73 sq.m. Ages 50-59 = 93 mL/min/1.73 sq.m. Ages 60-69 = 85 mL/min/1.73 sq.m. Ages 70+ = 75 mL/min/1.73 sq.m. Chronic Kidney Disease: Less than 60 mL/min/1.73 square meters End Stage Renal Disease: Less than 15 mL/min/1.73 square meters Performed By: #### C BC, ADIFF, ANEU #### [address] [address] #### GFR, TSH, LIPID, CMP #### [address] [address] GFR 142 ml/min/1.73sqm Normal [facility] ([place]) Comment on above: Result Comment: GFR Population mean for , Non- Americans Ages 20-29 = 116 mL/min/1.73 sq.m. Ages 30-39 = 107 mL/min/1.73 sq.m. Ages 40-49 = 99 mL/min/1.73 sq.m. Ages 50-59 = 93 mL/min/1.73 sq.m. Ages 60-69 = 85 mL/min/1.73 sq.m. Ages 70+ = 75 mL/min/1.73 sq.m. Chronic Kidney Disease: Less than 60 mL/min/1.73 square meters End Stage Renal Disease: Less than 15 mL/min/1.73 square meters Performed By: #### C ANJU EVERETT ANEU #### [place] [address] #### GFR, TSH, LIPID, CMP #### [place] [address] .NEUABSon 11-30-2019 Neutrophils (Bld) [#/Vol] 4.20 10 3/mcL Normal 2.85-6.16 [facility] ([place]) Comment on above: Performed By: #### ANJU GARNETT ANEU #### [place] [address] #### GFR, TSH, LIPID, CMP #### [place] [address] CBCon 11-30-2019 Erythrocyte distribution width (RBC) [Ratio] 13.6 % Normal 11.5-14.5 [facility] ([place]) Comment on above: Performed By: #### ANJU GARNETT ANEU #### [place] [address] #### GFR, TSH, LIPID, CMP #### [place] [address] Hematocrit (Bld) [Volume fraction] 40.1 % Normal 37.0-47.0 [facility] ([place]) Comment on above: Performed By: #### C ANJU EVERETT, ANEU #### [address] [address] #### GFR, TSH, LIPID, CMP #### [address] [address] Hemoglobin (Bld) [Mass/Vol] 13.5 G/dL Normal 12.0-16.0 [facility] ([place]) Comment on above: Performed By: #### C ANJU EVERETT, ANEU #### [place] [address] #### GFR, TSH, LIPID, CMP #### [address] [address] MCH (RBC) [Entitic mass] 28.6 pg Normal 27.0-31.2 [facility] ([place]) Comment on above: Performed By: #### ANJU GARNETT ANEU #### [place] [address] #### GFR, TSH, LIPID, CMP #### [place] [address] MCHC (RBC) [Mass/Vol] 33.7 G/dL Normal 33.0-37.0 [facility] ([place]) Comment on above: Performed By: #### ANJU GARNETT ANEU #### [place] [address] #### GFR, TSH, LIPID, CMP #### [address] [address] MCV (RBC) [Entitic vol] 84.9 fL Normal 80.0-94.0 [facility] ([place]) Comment on above: Performed By: #### ANJU GARNETT, ANEU #### [place] [address] #### GFR, TSH, LIPID, CMP #### [place] [address] Platelet mean volume (Bld) [Entitic vol] 9.5 fL Normal 7.4-10.4 [facility] ([place]) Comment on above: Performed By: #### C ANJU EVERETT, ANEU #### [place] [address] #### GFR, TSH, LIPID, CMP #### [address] [address] Platelets (Bld) [#/Vol] 262 10 3/mcL Normal 130-400 [facility] ([place] Comment on above: Performed By: #### C BCANJU, ANEU #### [place] [address] #### GFR, TSH, LIPID, CMP #### [place] [address] RBC (Bld) [#/Vol] 4.72 10 6/mcL Normal 4.20-5.40 [facility] ([place]) Comment on above: Performed By: #### C ANJU EVERETT, ANEU #### [place] [address] #### GFR, TSH, LIPID, CMP #### [place] [id number] WBC (Bld) [#/Vol] 7.60 10 3/mcL Normal 4.60-10.80 [facility] ([place]) Comment on above: Performed By: #### ANJU GARNETT, ANEU #### [place] [address] #### GFR, TSH, LIPID, CMP #### [address] [address] CMPon 11-30-2019 Albumin [Mass/Vol] 4.0 G/dL Normal 3.5-5.0 [facility] ([place] Comment on above: Performed By: #### C BC, ADIFF, ANEU #### [place] [address] #### GFR, TSH, LIPID, CMP #### [facility] [address] [place], [place] [address] Albumin/Globulin [Mass ratio] 1.2 {ratio} Normal 1.1-2.5 [facility] ([place] Comment on above: Performed By: #### C ANJU EVERETT, ANEU #### [place] [address] #### GFR, TSH, LIPID, CMP #### [address] [address] ALP [Catalytic activity/Vol] 86 U/L Normal 40-135 [facility] ([place] Comment on above: Performed By: #### C BC, RAMONEIFF, ANEU #### [place] [address] #### GFR, TSH, LIPID, CMP #### [address] [address] ALT [Catalytic activity/Vol] 50 U/L High 10-35 [facility] ([place] Comment on above: Performed By: #### C ANJU EVERETT, ANEU #### [place] [address] #### GFR, TSH, LIPID, CMP #### [address] [address] AST [Catalytic activity/Vol] 29 U/L Normal 10-40 [facility] ([place] Comment on above: Performed By: #### C ANJU EVERETT, ANEU #### [place] [address] #### GFR, TSH, LIPID, CMP #### [address] [address] Bili Total 0.4 mg/dL Normal 0.2-1.0 [facility] ([place] Comment on above: Performed By: #### C ANJU EVERETT, ANEU #### [place] [address] #### GFR, TSH, LIPID, CMP #### [address] [address] Globulin (S) [Mass/Vol] 3.4 G/dL Normal [facility] ([place] Comment on above: Performed By: #### C BC, ANJU, ANEU #### [address] [address] #### GFR, TSH, LIPID, CMP #### [address] [address] Protein [Mass/Vol] 7.4 G/dL Normal 6.4-8.2 [facility] ([place] Comment on above: Performed By: #### C BC, ADIFF, ANEU #### [place] [id number] #### GFR, TSH, LIPID, CMP #### [address] [address] Calcium [Mass/Vol] 9.3 mg/dL Normal 8.4-10.2 [facility] ([place] Comment on above: Performed By: #### C BC, ADIFF, ANEU #### [place] [address] #### GFR, TSH, LIPID, CMP #### [address] [address] Chloride [Moles/Vol] 102 mmol/L Normal 98-107 [facility] ([place]) Comment on above: Performed By: #### C BC, ADIFF, ANEU #### [place] [address] #### GFR, TSH, LIPID, CMP #### [address] [address] CO2 [Moles/Vol] 28 mmol/L Normal 22-29 [facility] ([place]) Comment on above: Performed By: #### C BC, ADIFF, ANEU #### [address] [address] #### GFR, TSH, LIPID, CMP #### [address] [address] Creatinine [Mass/Vol] 0.64 mg/dL Normal 0.55-1.02 [facility] ([place] Comment on above: Performed By: #### C BC, ADIFF, ANEU #### [place] [id number] #### GFR, TSH, LIPID, CMP #### [address] [address] Electrolyte Balance 10.0 mEq/L Normal [facility] ([place]) Comment on above: Performed By: #### C BC, ADIFF, ANEU #### [address] [address] #### GFR, TSH, LIPID, CMP #### [address] [address] Glucose [Mass/Vol] 111 mg/dL High 70-105 [facility] ([place] Comment on above: Performed By: #### C BC, ADIFF, ANEU #### [address] [address] #### GFR, TSH, LIPID, CMP #### [address] [address] Potassium [Moles/Vol] 4.2 mmol/L Normal 3.5-5.1 [facility] ([place] Comment on above: Performed By: #### C BC, ADIFF, ANEU #### [address] [address] #### GFR, TSH, LIPID, CMP #### [address] [address] Sodium [Moles/Vol] 140 mmol/L Normal 136-145 [facility] ([place]) Comment on above: Performed By: #### C BC, ADIFF, ANEU #### [address] [address] #### GFR, TSH, LIPID, CMP #### [address] [address] Urea nitrogen [Mass/Vol] 10 mg/dL Normal 7-18 [facility] ([place]) Comment on above: Performed By: #### C BC, ADIFF, ANEU #### [address] [address] #### GFR, TSH, LIPID, CMP #### [address] [address] Urea nitrogen/Creatinine [Mass ratio] 16 ratio Normal 7-27 [facility] ([place] Comment on above: Performed By: #### C BC, ADIFF, ANEU #### [address] [address] #### GFR, TSH, LIPID, CMP #### [address] [address] LIPIDon 11-30-2019 Cholesterol [Mass/Vol] 167 mg/dL Normal 0-200 [facility] ([place]) Comment on above: Result Comment: Chol esterol Reference Interval: Less than 200 Desirable 200-239 Borderline high risk 240 and above High risk Performed By: #### C BC, ADIFF, ANEU #### [address] [address] #### GFR, TSH, LIPID, CMP #### [address] [address] Cholesterol in HDL [Mass/Vol] 25 mg/dL Low 40-60 [facility] ([place]) Comment on above: Performed By: #### C BC, ADIFF, ANEU #### [address] [address] #### GFR, TSH, LIPID, CMP #### [address] [address] Cholesterol in LDL [Mass/Vol] 94 mg/dL Normal 0-130 [facility] ([place] Comment on above: Performed By: #### C BC, ADIFF, ANEU #### [address] [address] #### GFR, TSH, LIPID, CMP #### [address] [address] Triglyceride [Mass/Vol] 239 mg/dL High 0-150 [facility] ([place]) Comment on above: Result Comment: Trig lyceride Reference Interval: Less than 150 Normal 150-199 Borderline high risk 200-499 High risk 500 or higher Very high risk Performed By: #### C BC, ADIFF, ANEU #### [place] [address] #### GFR, TSH, LIPID, CMP #### [facility] [address] [place] [address] TSHon 11-30-2019 TSH Qn 2.80 mcIU/mL Normal 0.36-3.74 [facility] ([place]) Comment on above: Performed By: #### C BC, ADIFF, ANEU #### [facility] [address] [place], [place] [address] #### GFR, TSH, LIPID, CMP #### [facility] [address] [place] [address] Progress Noteon 09-13-2019 [employer] Authentication Interface Message Text Patient ID: Holli Kunz is a 19 y.o. female. Her chief complaint(s) include: Anxiety (recheck) Assessment 1. Generalized anxiety disorder Plan Holli was seen today for anxiety. Diagnoses and all orders for this visit: Generalized anxiety disorder Patient's symptoms are under fairly good control with the lexapro 20mg tab. Patient denies any suicidal thoughts or ideations. Will continue to monitor for any worsening/concerning symptoms. Will continue with the counseling. Patient to call if any issues develop. Declined influenza vaccine. Return for recheck for anxiety/depression med check when home on spring. Subjective She is unaccompanied. Anxiety Improvement with Treatment: Moderate Compliance: Good HEEADSS: Education: She is in senior year of college and is doing well, is meeting expectations, is getting along with peers and earns A's & B's. Drugs: She does not use tobacco, does not use drugs, does not use alcohol and does not vape. Suicidality: She has ways to cope with stress, displays self-confidence (some days better than others), has problems with sleep (sometimes too much/sometimes not enough), has depression (some), has anxiety and is engaged in counseling. She has no mood swings, has no suicidal ideation and has no homicidal ideation. Follow-Up: taking medication as prescribed, desires to stay in current treatment plan and counseling Medication side effects: headache (slightly increased) and weight gain (some) Medication side effects: no sedation, no dry mouth, no constipation, no GI distress, no nausea, no restlessness (not due to meds), no jitters/tremors, no insomnia, no sexual dysfunction and no increase suicidal thoughts Primary Care Review of Systems Objective Vital Signs 09/13/19 1339 Temp: 36.3 C (97.4 F) TempSrc: Temporal Weight: (!) 100.8 kg Body mass index is 39.28 kg/m . Physical Exam Constitutional: She appears well. She is active. overweight HENT: Right Ear: Tympanic membrane normal. Left Ear: Tympanic membrane normal. Nose: No nasal discharge. Mouth/Throat: No pharynx erythema. Eyes: Pupils are equal, round, and reactive to light. Neck: Normal range of motion. Cardiovascular: Normal rate and regular rhythm. Pulses are strong. Pulmonary/Chest: Effort normal and breath sounds normal. Abdominal: Soft. Bowel sounds are normal. Neurological: She is alert. She has normal strength and normal reflexes. Coordination and gait normal. Skin: No rash noted. Skin is warm. Vitals reviewed: Temperature 36.3 C (97.4 F), temperature source Temporal, weight (!) 100.8 kg. Normal [facility] Progress Noteon 07-09-2019 [employer] Purchaser Authentication Interface Message Text Patient ID: Holli Kunz is a 19 y.o. female. Her chief complaint(s) include: 21+ YEAR WELL CHILD (discuss meds) Assessment 1. Routine general medical examination at a health care facility 2. Generalized anxiety disorder Plan Holli was seen today for 21+ year well child. Diagnoses and all orders for this visit: Routine general medical examination at a health care facility - Behavioral/Emotional Assessment w Score - PHQ-9 Generalized anxiety disorder - busPIRone (BUSPAR) 5 MG tablet; Take 1 Tab (5 mg) by mouth 2 times daily Patient reported that she is having worsening symptoms of depression/some anxiety. Has had more ups and downs in her behavior---feeling good one moment and then not. Patient restarting counseling and has a good support of friends at college. Will keep the lexapro at 20mg qday for now but will add buspar 5mg qday to bid to see if that will help. Patient denies any suicidal ideations at this time. Will continue to monitor closely. In my clinical judgement, patient is safe to go home at this time. To call if symptoms worsening with the new medication added on. Will follow up when back home for college break. Declined influenza vaccine. Return in about 1 year (around 07/09/2020) for well check. Subjective She is unaccompanied. 21+ YEAR WELL CHILD Home: Holli has an adult to turn to for help, is permitted and able to make independent decisions and pays bills. Holli has no home risk identified. Education: She is in senior year of college and is doing well and earns A's & B's. Eating: Holli eats regular meals including fruits and vegetables, eats breakfast (depends on the day), limits fast food and drinks non-sweetened liquids. Holli does not have a calcium source. Activities & Sports: She performs at least 1 hour of physical activity daily and plays team sports (rugby). She engages in screen time more than 2 hours daily, does not participate in music programs and does not participate in clubs. Drugs: She does not use tobacco, does not use drugs, does not use alcohol and does not vape. Safety: She has a violence free home, has peer relationships free from violence and uses seat belt. She does not use phone/text while driving. Sex: Holli is not sexually active. STD screening offered and declined. Suicidality: She has ways to cope with stress, displays self-confidence (for the most part), has problems with sleep (as usual), has depression, has anxiety, has mood swings and is engaged in counseling (going to be restarting). She has no suicidal ideation, has no homicidal ideation and has no mental health risk identified. PHQ-9 Score: 11 Menstruation Last Menstrual period: LMP from [facility] Patient's last menstrual period was 06/03/2019 (within days).. (Menarche: age 11) Menstruation: regular periods and moderate cramping Output Urine and Stool Pattern: Urine and Stool Pattern: Normal stool pattern, no constipation, normal urine pattern, no nocturnal enuresis. Stool Consistency: soft Sleep Sleeping Difficulty: no difficulty sleeping Hours of sleep at a time: 6 (to 9 hours) Teen Anticipatory Guidance The following anticipatory guidance was reviewed during the visit: Nutrition: limit junk food/fast food and soft drinks. Safety: use safety helmet/gear with activities. Social: avoid or limit screen time and parental limits and consequences for unacceptable behavior. Health: age appropriate dental care, age appropriate sleep habits, elevated noise and hearing, avoid situations where drugs and alcohol are present, how to resist peer pressure to smoke, drink, use drugs, learn to manage time and activities and be responsible for attendance/ homework/ course selection. Screenings Previous Vaccine Reactions: No. Life events information was reviewed-no referral needed (Social determinant questionnaire completed: no concerns at this time) Hearing Vision Concerns: The caregiver has no concerns about the patient's hearing. The caregiver has no concerns about the patient's vision. Hyperlipidemia Concerns: Positive Hyperlipidemia Screen Concerns: parent or grandparent with AL angina peripheral or cerebrovascular disease <55 years (father) and parent with cholesterol >240mg/dl Depression HEEADSS: Home: Holli has an adult to turn to for help, is permitted and able to make independent decisions and pays bills. Holli no home risk identified. Education: She is in senior year of college and is doing well and earns A's & B's. Eating: Holli eats regular meals including fruits and vegetables, eats breakfast (depends on the day), limits fast food and drinks non-sweetened liquids. Holli does not have a calcium source. Activities & Sports: She performs at least 1 hour of physical activity daily and plays team sports (rugby). She engages in screen time 2 hours or more daily, does not participate in music programs and does not participate in clubs. Drugs: She does not use tobacco, does not use drugs, does not use alcohol and does not vape. Safety: She has a violence free home, has peer relationships free from violence and uses seat belt. She does not use phone/text while driving. Sex: Holli is not sexually active. STD screening offered and declined. Suicidality: She has ways to cope with stress, displays self-confidence (for the most part), has problems with sleep (as usual), has depression, has anxiety, has mood swings and is engaged in counseling (going to be restarting). She has no suicidal ideation, has no homicidal ideation and has no mental health risk identified. Primary Care Review of Systems Objective Vital Signs 07/09/19 0924 BP: 127/68 Pulse: 87 Weight: 98.9 kg Height: 160.2 cm Body mass index is 38.54 kg/m . Physical Exam Constitutional: She appears well. She is active. No distress. Overweight. HENT: Head: Atraumatic. Right Ear: Tympanic membrane and external ear normal. Left Ear: Tympanic membrane and external ear normal. Nose: Nose normal. No nasal deformity or nasal discharge. Mouth/Throat: Mucous membranes are moist. Dentition is normal. Oropharynx is clear. Eyes: Conjunctivae are normal. Neck: Normal range of motion. Neck supple. No neck adenopathy. Cardiovascular: Normal rate, regular rhythm, S1 normal and S2 normal. Heart murmur not heard. Pulses: Femoral pulses are 2+ on the right side, and 2+ on the left side Pulmonary/Chest: Breath sounds normal. No respiratory distress. Exhibits no deformity. Abdominal: Soft. Bowel sounds are normal. She exhibits no distension and no mass. There is no hepatosplenomegaly. There is no tenderness. Skin: No rash noted. There is no pallor. Skin is warm. Vitals reviewed: Blood pressure 127/68, pulse 87, height 160.2 cm, weight 98.9 kg, last menstrual period 06/03/2019. Normal [facility] Progress Noteon 05-03-2019 [employer] P[employer] Authentication Interface Message Text Patient ID: Holli Kunz is a 19 y.o. female. Her chief complaint(s) include: Anxiety Assessment 1. Generalized anxiety disorder Plan Holli was seen today for anxiety. Diagnoses and all orders for this visit: Generalized anxiety disorder - escitalopram (LEXAPRO) 20 MG tablet; Take 1 Tab (20 mg) by mouth daily Patient struggling with her anxiety recently. Not having the benefits she had in the past. She denies any suicidal thoughts or any self harm. Will increase the lexapro from 10mg to 20mg. Will monitor closely for side effects. In my clinical judgment, patient is safe to go home. Return in about 4 months (around 09/02/2019) for anxiety disorder med check. Subjective She is accompanied by her mother. Anxiety Onset: Gradual Duration - Years: several years. Characterized by: Anxiety Course: Unchanging (maybe slightly worsening) Symptoms: feeling down (on crutches---feeling worse), feeling depressed (some), feeling anxious, restlessness, irritability and feeling nervous Symptoms: no hopelessness, no self-harm, no suicidal thoughts, no feeling afraid, no worthlessness, no visual hallucinations (sometimes thinks she sees something in the corner of her eyes), no auditory hallucinations and no paranoia Associated Symptoms: decreased motivation (could be better) and decreased sleep Associated Symptoms: no anhedonia, no decreased self-esteem, no worthlessness, no decreased appetite, no overeating and no decreased school performance Past Medical/Psychiatric History: depression (some), anxiety and trauma Past Medical/Psychiatric History: no thyroid disease, no ADHD, no suicide attempts, no self-harm and no abuse Family History: depression, anxiety, bipolar and schizophrenia Family History: no suicide attempts and no completed suicides Previous Treatments: counseling, SSRI and other Current Treatments: SSRI Current Treatments: no counseling (will be going back to counseling when back at school) Improvement with Treatment: Mild (initially but not so much lately) Compliance: Good HEEADSS: Education: She is in qing year of college and is doing well, is meeting expectations, is getting along with peers and earns A's & B's. (Will be going to 3rd year college/plans to graduate January 2020) Suicidality: She has ways to cope with stress, displays self-confidence, has problems with sleep, has depression, has anxiety and is engaged in counseling. She has no suicidal ideation and has no homicidal ideation. Follow-Up: taking medication as prescribed and counseling Follow-Up: desires not to stay in current treatment plan (wanting to try higher dose of lexapro) Primary Care Review of Systems Objective Vital Signs 05/03/19 0936 BP: (!) 142/76 Pulse: (!) 112 Weight: 95.7 kg There is no height or weight on file to calculate BMI. Physical Exam Constitutional: She appears well. She is active. No distress. HENT: Head: Atraumatic. Right Ear: Tympanic membrane and external ear normal. Left Ear: Tympanic membrane and external ear normal. Nose: Nose normal. No nasal deformity or nasal discharge. Mouth/Throat: Mucous membranes are moist. Dentition is normal. Oropharynx is clear. Eyes: Conjunctivae are normal. Neck: Normal range of motion. Neck supple. No neck adenopathy. Cardiovascular: Normal rate, regular rhythm, S1 normal and S2 normal. Heart murmur not heard. Pulses: Femoral pulses are 2+ on the right side, and 2+ on the left side Pulmonary/Chest: Breath sounds normal. No respiratory distress. Exhibits no deformity. Abdominal: Soft. Bowel sounds are normal. She exhibits no distension and no mass. There is no hepatosplenomegaly. There is no tenderness. Neurological: She is alert. She has normal reflexes. Gait (has an orthopedic boot on) abnormal. Skin: No rash noted. There is no pallor. Skin is warm. Vitals reviewed: Blood pressure (!) 142/76, pulse (!) 112, weight 95.7 kg, last menstrual period 04/12/2019. Normal [facility] ED NOTEon 04-06-2019 ED NOTE HNO ID: [id number] Author: Jyoti Huitron RN Service: Emergency Medicine Author Type: Registered Nurse Type: ED Notes Filed: 04/05/2019 10:12 PM Note Text: Crutches provided. Pt demonstrated proper use, reviewed dc orders with pt, no new scripts, copy of films provided. Pt verbalized understanding. Ambulatory with crutches for dc home with friend. Normal [facility] ED NOTEon 04-05-2019 ED NOTE HNO ID: [id number] Author: Jyoti Huitron RN Service: Emergency Medicine Author Type: Registered Nurse Type: ED Notes Filed: 04/05/2019 9:39 PM Note Text: Returned from xray Normal [facility] ED NOTE HNO ID: [id number] Author: Jyoti Huitron RN Service: Emergency Medicine Author Type: Registered Nurse Type: ED Notes Filed: 04/05/2019 9:25 PM Note Text: Pt to xray per cart Normal [facility] ED NOTE HNO ID: [id number] Author: Jyoti Huitron RN Service: Emergency Medicine Author Type: Registered Nurse Type: ED Notes Filed: 04/05/2019 9:25 PM Note Text: Patient informed: the name of medication, why we are giving it, possible side effects, what they may expect to feel, and was offered a chance to ask questions, prior to the administration of motrin [facility] ED NOTE HNO ID: [id number] Author: Jyoti Huitron RN Service: Emergency Medicine Author Type: Registered Nurse Type: ED Notes Filed: 04/05/2019 9:22 PM Note Text: Pt to ED with c/o around 1951 I went to slide and I think I tripped and ended up on the ground, and the outside of my right ankle hurt no head injury or loc. Ice placed ship captain. Normal [facility] ED PROV NOTEon 04-05-2019 ED PROV NOTE HNO ID: [id number] Author: Kirby Arauz MD Service: Emergency Medicine Author Type: Physician Type: ED Provider Notes Filed: 04/05/2019 10:01 PM Note Text: ED Provider Note Patient Name: Holli Kunz SERVICE DATE: 04/05/19 History Patient presents with: Ankle Injury Holli Kunz is a 18 year old female with history of no chronic medical problems who presents with Ankle Injury. Patient took nothing for this prior to arrival. - Symptoms began 1/2 hr ago - Severity: moderate - Timing: constant - Quality: sore - Ankle Injury is exacerbated by movement palpation. - Ankle Injury is not exacerbated by elevation. - Symptoms are associated with pain. - Symptoms are not associated with any other injury. - Improved by cold compresses. - Not improved by movement. PAST MEDICAL HISTORY Diagnosis Date - Anxiety - Psychiatric disorder PAST SURGICAL HISTORY Procedure Laterality Date - TONSILLECTOMY HX No family history on file. Social History Tobacco Use - Smoking status: Never Smoker - Smokeless tobacco: Never Used Substance and Sexual Activity - Alcohol use: Not Currently - Drug use: Never - Sexual activity: Not on file ALLERGIES Allergen Reactions - Egg Unknown Review of Systems Constitutional: Negative for chills and fever. Gastrointestinal: Negative for nausea and vomiting. Musculoskeletal: Positive for gait problem. Negative for joint swelling. Skin: Negative for color change, pallor, rash and wound. Allergic/Immunologic: Negative for environmental allergies, food allergies and immunocompromised state. Neurological: Negative for dizziness and syncope. Psychiatric/Behaviora l: Negative for confusion. The patient is not nervous/anxious. Physical Exam BP 137/89 Pulse 103 Temp (Src) 97.2 (Temporal) Resp 16 Ht 5' 3 (1.60m) Wt 200 lb (90.7kg) SpO2 100% LMP 03/06/2019 BMI 35.44 kg/(m2). O2 Therapy: Room Air Physical Exam Constitutional: She is oriented to person, place, and time. She appears well-developed and well-nourished. No distress. HENT: Head: Normocephalic and atraumatic. Right Ear: External ear normal. Left Ear: External ear normal. Mouth/Throat: Oropharynx is clear and moist. Eyes: EOM are normal. Right eye exhibits no discharge. Left eye exhibits no discharge. No scleral icterus. Cardiovascular: Normal rate and intact distal pulses. Musculoskeletal: She exhibits tenderness. She exhibits no edema or deformity. Decreased ROM no gross deformity , pain along distal fibula and tibia Neurological: She is alert and oriented to person, place, and time. No sensory deficit. She exhibits normal muscle tone. Skin: Skin is warm and dry. Capillary refill takes less than 2 seconds. No rash noted. She is not diaphoretic. No erythema. No pallor. Psychiatric: She has a normal mood and affect. Her behavior is normal. Judgment and thought content normal. Nursing note and vitals reviewed. Diagnostic Testing ED Labs Ordered and Reviewed - No data to display ORTHOPEDIC INJURY - FRACTURE/DISLOCATION Date/Time: 04/05/2019 9:56 PM Performed by: Kirby Arauz MD Authorized by: Kirby Arauz MD Consent: Consent obtained: Verbal Consent given by: Patient Risks discussed: Pain Alternatives discussed: No treatment Injury: Injury location: Ankle Ankle injury location: R ankle Ankle fracture type: lateral malleolus Pre-procedure assessment: Neurological function: normal Distal perfusion: normal Range of motion: reduced Anesthesia (see MAR for exact dosages): Anesthesia method: None Procedure details: Manipulation performed: no Immobilization: Crutches and splint Supplies used: Elastic bandage, Ortho-Glass and cotton padding Post-procedure assessment: Neurological function: normal Distal perfusion: normal Range of motion: unchanged Patient tolerance of procedure: Tolerated well, no immediate complications ED Course / Clinical Impression Clinical Impressions as of Apr 05 2201 Closed fracture of right ankle, initial encounter MDM / Disposition / Plan X-ray consistent with a nondisplaced distal fibular fracture patient wants to follow up with an orthopedic doctor in [place] ; she states her family will be able to contact one for her in the meantime she is placed in a short leg posterior splint crutches nonweightbearing. SIGNATURE: MD Kirby Mas MD 04/05/192200 Normal [facility] Progress Noteon 02-09-2019 [employer] Authentication Interface Message Text Patient ID: Holli Kunz is a 18 y.o. female. Her chief complaint(s) include: Anxiety (Med check) Assessment 1. Generalized anxiety disorder 2. Fatigue, unspecified type Plan Holli was seen today for anxiety. Diagnoses and all orders for this visit: Generalized anxiety disorder Fatigue, unspecified type - Basic Metabolic Panel (Lab Collect); Future - Complete Blood Count with Diff (Lab Collect); Future - Vitamin D 25 hydroxy (Lab Collect); Future - TSH (Lab Collect); Future - T4, free (Lab Collect); Future Will increase the dose for lexapro to 10mg qday. Will monitor closely. If GI issues not improving or worsening, will consider starting an antacid to see if that will help. Return in about 6 months (around 08/12/2019). Subjective She is unaccompanied. Anxiety Onset: Gradual Years Duration: 1 year (since it has been a major issue but has had some issues for serveral years prior.) Characterized by: Depressed Mood, Anxiety, Panic Attacks and Mood Swings Course: Unchanging Symptoms: feeling down (some), feeling depressed (some), feeling anxious, restlessness, irritability (depending on the situation), feeling nervous and visual hallucinations (will get a glimpse of things off/on---disappears quickly) Symptoms: no hopelessness, no self-harm, no suicidal thoughts, no feeling afraid, no worthlessness and no auditory hallucinations Associated Symptoms: fatigue Associated Symptoms: no anhedonia, no decreased self-esteem, no worthlessness, no decreased appetite (appetites fluctuates up and down depending on the day), no overeating, no decreased school performance, no loss of job, no decreased motivation, no increased sleep (some days sleeps more than others), no decreased sleep, no restricting foods and no purging Contributing Factors: no bullying and no problems at school Past Medical/Psychiatric History: thyroid disease Family History: depression and anxiety Previous Treatments: counseling and SSRI Current Treatments: SSRI Current Treatments: no counseling Improvement with Treatment: Mild Compliance: Good HEEADSS: Suicidality: She has ways to cope with stress, displays self-confidence, has depression (at times), has anxiety (at times), has mood swings (at times) and is engaged in counseling (not currently due to being on school break). She has no problems with sleep, has no suicidal ideation and has no homicidal ideation. Follow-Up: taking medication as prescribed and counseling Follow-Up: desires not to stay in current treatment plan (would like to try higher dose) Medication side effects: GI distress Medication side effects: no sedation, no dry mouth, no constipation, no nausea, no restlessness, no jitters/tremors, no headache, no insomnia and no increase suicidal thoughts Weight gain: unsure. Follow up PHQ-9 Score: 11 Primary Care Review of Systems Objective Vital Signs 02/09/19 1054 BP: 120/75 Pulse: (!) 112 Weight: 96.9 kg Height: 161 cm Body mass index is 37.38 kg/m . Physical Exam Constitutional: She appears well. She is active. No distress. overweight HENT: Head: Atraumatic. Right Ear: Tympanic membrane and external ear normal. Left Ear: Tympanic membrane and external ear normal. Nose: Nose normal. Mouth/Throat: Mucous membranes are moist. Dentition is normal. Eyes: Conjunctivae and EOM are normal. Pupils are equal, round, and reactive to light. Neck: Neck supple. No neck adenopathy. Cardiovascular: Normal rate, regular rhythm, S1 normal and S2 normal. Pulses are palpable. Pulmonary/Chest: Effort normal and breath sounds normal. Abdominal: Soft. Bowel sounds are normal. She exhibits no distension and no mass. There is no tenderness. Musculoskeletal: She exhibits no deformity. Neurological: She is alert. She has normal strength and normal reflexes. She exhibits normal muscle tone. Skin: No rash noted. No cyanosis. No pallor. Skin is warm. Vitals reviewed: Blood pressure 120/75, pulse (!) 112, height 161 cm, weight 96.9 kg, last menstrual period 02/05/2019. Normal [facility] [employer] Authentication Interface Message Text Holli Kunz is a 18 y.o. female patient. Behavioral/Emotional Assessment w Score - PHQ - 9 Performed by: Elizabeth Peng MD Authorized by: Elizabeth Peng MD PHQ-9 See PHQ9 Flowsheet Feeling down, depressed, irritable or hopeless: Several days Little interest or pleasure in doing things: Several days Trouble falling or staying sleep, or sleeping too much: More than half the days Poor appetite, weight loss, or overeating: Several days Feeling tired or having little energy: Several days Feeling bad about yourself - or feeling that you are a failure, or have let yourself or your family down: Several days Trouble concentrating on things, like school work, reading or watching TV: Nearly every day Moving or speaking so slowly that other people could have noticed. Or the opposite - being so fidgety or restless that you were moving around a lot more than usual: Several days Thoughts that you would be better off , or of hurting yourself in some way: Not at all In the past year have you felt depressed or sad most days, even if you felt OK sometimes?: Yes If you are experiencing any of the problems on this form, how difficult have these problems made it for you to do your work, take care of things at home or get along with other people?: Somewhat difficult Has there been a time in the past month when you have had serious thoughts about ending your life?: No Have you ever, in your whole life, tried to kill yourself or made a suicide attempt?: No PHQ-9 Manual Score: 11 PHQ-9 Total Score: 11 Total Score Value: 10-14 Moderate Electronically signed by: Elizabeth Peng MD [facility] Progress Noteon 10-01-2018 [employer] Authentication Interface Message Text Patient ID: Holli Kunz is a 18 y.o. female. Her chief complaint(s) include: Depression (anxietty) Assessment 1. Generalized anxiety disorder Plan Holli was seen today for depression. Diagnoses and all orders for this visit: Generalized anxiety disorder Patient stable on the current medication: lexapro 7.5mg qday. Will continue to monitor for side effects. If headaches persists, may need to do trial off medication to see if they improve. Monitor for any suicidal thoughts or ideations. Return in about 4 months (around 01/29/2019) for Depression/Anxiety medication recheck, needs copy of vaccines for school/daycare. Subjective She is unaccompanied. Depression HEEADSS: Drugs: no tobacco use, no drug use/experimentation and no alcohol use Suicidality: has ways to cope with stress, depression (situational: had recent breakup and still adjusting) and anxiety (stable---able to go to class) Suicidality: does not display self-confidence, has no problems with sleep, has no mood swings, has no suicidal ideation and has no homicidal ideation Follow-Up: taking medication as prescribed and desires to stay in current treatment plan Follow-Up: no counseling Medication side effects: Restlessness (not out of the ordinary) and Headache Medication side effects: no Sedation, no Dry mouth, no Constipation, no GI distress, no Nausea, no Jitters/Tremors, no Insomnia and no Increase suicidal thoughts Primary Care Review of Systems Objective Vital Signs 10/01/18 1022 BP: 122/71 Pulse: 106 Weight: 92.9 kg There is no height or weight on file to calculate BMI. Physical Exam Constitutional: She appears well. She is active. No distress. HENT: Head: Atraumatic. Right Ear: Tympanic membrane and external ear normal. Left Ear: Tympanic membrane and external ear normal. Nose: Nose normal. Mouth/Throat: Mucous membranes are moist. Dentition is normal. Eyes: Conjunctivae and EOM are normal. Pupils are equal, round, and reactive to light. Neck: Neck supple. No neck adenopathy. Cardiovascular: Normal rate, regular rhythm, S1 normal and S2 normal. Pulses are palpable. Pulmonary/Chest: Effort normal and breath sounds normal. Abdominal: Soft. Bowel sounds are normal. She exhibits no distension and no mass. There is no tenderness. Musculoskeletal: She exhibits no deformity. Neurological: She is alert. She has normal strength. She exhibits normal muscle tone. Skin: No rash noted. No cyanosis. No pallor. Skin is warm. Vitals reviewed: Blood pressure 122/71, pulse 106, weight 92.9 kg. Normal [facility] COVID-19 virus antigen assay SARS-CoV-2 (COVID-19) Ag IA.rapid Ql (Resp) [facility] Work Phone: Culture, urine Bacteria identified Cx Nom (U) Positive [facility] Work Phone: Bacteria identified Cx Nom (U) Mixed Gram Pos & Gram Neg Org [facility] Work Phone: Influenza virus A and B and SARS-CoV-2 (COVID-19) Ag panel - Upper respiratory specim SARS-CoV-2 (COVID-19) RNA OREN+probe Ql (Resp) [facility] Work Phone: No Panel Information Group B Streptococcus Culture Group B Beta Streptococcus is not isolated. [facility] Work Phone: SARS-CoV-2 & FLU Antigen (Rapid) [facility] Work Phone: Vital Signs Date Time Vital Sign Value Performing Clinician Carola cabreray 07-12-2022 21:00-0400 Diastolic blood pressure 86 mm[Hg] [facility] Work Phone: 07-12-2022 21:00-0400 Heart rate 80 /min [facility] Work Phone: 07-12-2022 21:00-0400 Respiratory rate 18 /min [facility] Work Phone: 07-12-2022 21:00-0400 SaO2% (BldA) [Mass fraction] 100 % [facility] Work Phone: 07-12-2022 21:00-0400 Systolic blood pressure 110 mm[Hg] [facility] Work Phone: 07-12-2022 18:13-0400 Body height 160.02 cm [facility] Work Phone: 07-12-2022 18:13-0400 Body mass index (BMI) [Ratio] 41.3 kg/m2 [facility] Work Phone: 07-12-2022 18:13-0400 Body temperature 97.2 [degF] [facility] Work Phone: 07-12-2022 18:13-0400 Body weight 105.9 kg [facility] Work Phone: 07-10-2022 13:46-0400 Body temperature 97.3 [degF] [facility] Work Phone: 07-10-2022 13:46-0400 Diastolic blood pressure 79 mm[Hg] [facility] Work Phone: 07-10-2022 13:46-0400 Heart rate 125 /min [facility] Work Phone: 07-10-2022 13:46-0400 Respiratory rate 20 /min [facility] Work Phone: 07-10-2022 13:46-0400 SaO2% (BldA) [Mass fraction] 99 % [facility] Work Phone: 07-10-2022 13:46-0400 Systolic blood pressure 129 mm[Hg] [facility] Work Phone: 07-05-2022 10:02-0400 Body height 160.02 cm [facility] Work Phone: 07-05-2022 10:02-0400 Body mass index (BMI) [Ratio] 44.8 kg/m2 [facility] Work Phone: 07-05-2022 10:02-0400 Body weight 114.75 kg [facility] Work Phone: 05-22-2022 11:53-0400 Diastolic blood pressure 80 mm[Hg] [facility] Work Phone: 05-22-2022 11:53-0400 Heart rate 98 /min [facility] Work Phone: 05-22-2022 11:53-0400 Systolic blood pressure 130 mm[Hg] [facility] Work Phone: 05-22-2022 07:32-0400 SaO2% (BldA) [Mass fraction] 99 % [facility] Work Phone: 05-22-2022 07:30-0400 Body temperature 98 [degF] [facility] Work Phone: 05-21-2022 22:40-0400 Body height 160.02 cm [facility] Work Phone: 05-21-2022 22:40-0400 Body mass index (BMI) [Ratio] 42.8 kg/m2 [facility] Work Phone: 05-21-2022 22:40-0400 Body weight 109.76 kg [facility] Work Phone: 04-25-2022 21:27-0400 Heart rate 135 /min [facility] Work Phone: 04-25-2022 21:27-0400 SaO2% (BldA) [Mass fraction] 97 % [facility] Work Phone: 04-25-2022 20:37-0400 Body temperature 97.1 [degF] [facility] Work Phone: 04-25-2022 20:37-0400 Diastolic blood pressure 81 mm[Hg] [facility] Work Phone: 04-25-2022 20:37-0400 Systolic blood pressure 116 mm[Hg] [facility] Work Phone: 04-25-2022 20:25-0400 Body height 160.02 cm [facility] Work Phone: 04-25-2022 20:25-0400 Body mass index (BMI) [Ratio] 42.2 kg/m2 [facility] Work Phone: 04-25-2022 20:25-0400 Body weight 108.13 kg [facility] Work Phone: Encounters Encounter Date Encounter Type Care Provider Facility Start: 08-21-2024 End: 08-21-2024 Emergency department patient visit DOMITILA GIBBS Facility:[facility] Start: 11-01-2023 End: 11-01-2023 ambulatory Enriqueta Mitchellen Facility:[facility] [place] [place] Start: 08-19-2022 End: 08-19-2022 ambulatory [facility] Work Phone: Start: 08-19-2022 End: 08-19-2022 Patient encounter procedure [facility] [place] [facility] [employer] Start: 08-14-2022 End: 08-14-2022 ambulatory [facility] Work Phone: Start: 08-14-2022 End: 08-14-2022 Patient encounter procedure [facility] [place] [facility] [employer] Start: 07-12-2022 End: 07-12-2022 Emergency department patient visit [facility] Start: 07-05-2022 End: 07-10-2022 Evaluation and management of inpatient [facility] Start: 06-28-2022 End: 06-28-2022 [facility] Start: 05-22-2022 End: 05-22-2022 Evaluation and management of inpatient [facility] Start: 05-22-2022 End: 05-22-2022 observation encounter [facility] Work Phone: Start: 05-21-2022 End: 05-22-2022 ambulatory [facility] Work Phone: Start: 05-21-2022 End: 05-22-2022 Patient encounter procedure [facility] [place] [facility] [employer] Start: 04-25-2022 End: 04-25-2022 Patient encounter [facility] Start: 04-05-2022 End: 04-05-2022 Patient encounter procedure [facility] [place] [facility] [employer] Start: 12-27-2021 End: 12-27-2021 [facility] [place] [facility] Procedures Date Procedure Procedure Detail Performing Clinician Start: 07-12-2022 CT angiography of ch est with contrast Start: 07-10-2022 CT angiography of ch est with contrast Start: 05-22-2022 Computed tomography of abdomen and pelvis with intravenous contrast Start: 05-22-2022 Ultrasonography of abdomen Start: 12-27-2021 Urine culture Group B Streptococcus Culture SARS-CoV-2 & FLU Ant igen (Rapid) Urine culture Viral antigen assay Plan of Treatment Date Care Activity Detail Author Start: 07-12-2022 [facility] Work Phone: Start: 07-10-2022 Patient discharge [facility] Work Phone: Start: 07-09-2022 [facility] Work Phone: Start: 07-07-2022 Administration of medication [facility] Work Phone: Start: 07-07-2022 Application of ice collar, cap or bag [facility] Work Phone: Start: 07-07-2022 Catheterization of vein [facility] Work Phone: Start: 07-07-2022 Introduction of urinary catheter [facility] Work Phone: Start: 07-07-2022 Measuring intake and output [facility] Work Phone: Start: 07-07-2022 Notification of physician [facility] Work Phone: Start: 07-07-2022 Procedure discontinued [facility] Work Phone: Start: 07-07-2022 Provision of activity privileges [facility] Work Phone: Start: 07-07-2022 Vital signs measurements [facility] Work Phone: Start: 07-07-2022 [facility] Work Phone: Start: 07-07-2022 End: 07-07-2022 [facility] Work Phone: Start: 07-07-2022 Fluid restriction [facility] Work Phone: Start: 07-06-2022 [facility] Work Phone: Start: 07-06-2022 [facility] Work Phone: Start: 07-05-2022 [facility] Work Phone: Start: 07-05-2022 [facility] Work Phone: Start: 07-05-2022 Admission procedure [facility] Work Phone: Start: 07-05-2022 Anesthesia consultation [facility] Work Phone: Start: 07-05-2022 [facility] Work Phone: Start: 07-05-2022 [facility] Work Phone: Start: 05-22-2022 Iv infusion hydration initial 31 min-1 hour [facility] Work [facility] Start: 05-22-2022 Admission procedure [facility] Work Phone: Start: 05-22-2022 Nonstress test [facility] Work Phone: Start: 05-22-2022 End: 05-22-2022 [facility] Work Phone: Start: 05-22-2022 Obstetric monitoring [facility] Work Phone: Start: 05-22-2022 Vital signs measurements [facility] Work Phone: Start: 04-25-2022 End: 04-25-2022 [facility] Work Phone: Start: 04-25-2022 Nonstress test [facility] Work Phone: Start: 04-25-2022 Obstetric monitoring [facility] Work Phone: Start: 04-25-2022 Vital signs measurements [facility] Work Phone: Start: 04-25-2022 Iv infusion hydration initial 31 min-1 hour HYDRATION [facility] Work Phone: Start: 04-25-2022 Catheterization of vein [facility] Work Phone: Start: 04-25-2022 Patient discharge [facility] Work Phone: Bacteria identified in Urine by Culture Urine [facility] Work Phone: Patient Education [facility] Work Phone: Patient referral [facility] Work Phone: [facility] Work Phone: Payers Date Payer Category Payer Unknown [id number] 2023 Private Health Insurance [id number] 2023 Self-pay [id number] 2023 Unknown [id number] 2008 Unknown [id number] Unknown [id number] Unknown [id number] Social History Date Type Detail Facility Start: 02-14-2017 End: 07-12-2022 Tobacco smoking status KSIS Unknown if ever smoked [facility] Work Phone: Start: 2000 Sex Assigned At Female [facility] Work Phone: Goals Date Patient Goal Desired Activity /State Mental Status Date Assessment Result Facility 07-12-2022 Cognitive function Voice/Name [facility] Work Phone: 07-10-2022 Cognitive function Awake;Alert [facility] Work Phone: Clinical Notes 12-27-2021 to 07-10-2022 Note Date & Type Note Facility 07-10-2022 Hospital Discharg e instructions Additional Instructions Regular diet. Weightbearing as tolerated. Okay to shower. No intercourse for 4 to 6 weeks. Call if fevers, chills, chest pain, shortness of breath, headache, visual changes. Follow-up within 1 week for blood pressure check Date of Discharge: 07/10/22 [facility] Work Phone: 12-27-2021 Note [facility] Work Phone: Pap Smear Specimen Adequacy December 27, 2021 3:00pm Comment Satisfactory for evaluation. No endocervical component is identified. Comment on above: Satisfactory for kenyon luation. No endocervical component is identified. 12-27-2021 Note [facility] Work Phone: Pap Smear Specimen Adequacy December 27, 2021 3:00pm Comment . Satisfactory for evaluation. No endocervical component is identified. Comment on above: Satisfactory for kenyon luation. No endocervical component is identified. 12-27-2021 Note [facility] Work Phone: Pap Smear Specimen Adequacy December 27, 2021 3:00pm Comment . Satisfactory for evaluation. No endocervical component is identified. Comment on above: Satisfactory for kenyon luation. No endocervical component is identified. Evaluation note No assessment information availa ble [facility] Work Phone: Evaluation note Diagnosis Onset Date acute [facility] Work Phone: Evaluation note* Diagnosis Onset Date Resolution Status acute acute [facility] Work Phone: Evaluation note* Diagnosis Onset Date Resolution Status acute acute Gestational diabetes acute Pre-eclampsia acute Severe pre-eclampsia acute Vaginal delivery acute [facility] Work Phone: Evaluation note* Diagnosis Onset Date Resolution Status acute acute Severe pre-eclampsia acute Vaginal delivery acute Gestational diabetes resolve d Pre-eclampsia resolved [facility] Work Phone: Evaluation note* Diagnosis Onset Date Resolution Status acute Severe pre-eclampsia acute Vaginal delivery acute Gestational diabetes resolve d Pre-eclampsia resolved [facility] Work Phone: Hospital Discharge instructions Additional Instructions Instructed pt to pear picker Flomax for kidney stone. Pt can have Tylenol at home for pain, encourage pt to push po fluids.[facility] Work Phone: Hospital Discharge instructions Additional Instructions Today the testing showed no blood clots or signs of heart attack. I am not sure of the exact cause of your chest pain but it is possible to acid reflux as this is common during and you had the symptoms intermittently. I recommend Pepcid twice daily as needed. Follow-up with your STEAMBOAT CAPTAIN. If symptoms change or worsen return to the ER.[facility] Work Phone: Summary Purpose Family History No Family History Records FoundNo Family History Records FoundNo Family History Records FoundNo Family History Records FoundNo Family History Records Found Advance Directives No Advanced Directives Records Found Advance Directive Response Recorded Date/ Time Living Will No February 14, 2017 2 :44pm Power of Refrigeration Specialist No February 14, 2017 2:44pm Advance Directive Response Recorded Date/ Time Living Will No July 05 2:11pm Power of Refrigeration Specialist No July 05 2:11pm Advance Directive Response Recorded Date/ Time Living Will No July 12 7:14pm Power of Refrigeration Specialist No July 12, 2022 7:14pm Advance Directive Response Recorded Date/ Time Living Will No July 12 6:14pm Power of Refrigeration Specialist No July 12, 2022 6:14pm Chief Complaint and Reason for Visit Chief Complaint LABWORK Chief Complaint LABWORK RULE OUT LABOR Chief Complaint RULE OUT LABOR ABDOMINAL PAIN Reason for Visit Chief Complaint RULE OUT LABOR ABDOMINAL PAIN Reason for Visit Chief Complaint RULE OUT LABOR ABDOMINAL PAIN LABOR Reason for Visit Gestational diabetes Pre-eclampsia Severe pre-eclampsia Vaginal delivery Chief Complaint RULE OUT LABOR ABDOMINAL PAIN LABOR CP Reason for Visit Gestational diabetes Pre-eclampsia Severe pre-eclampsia Vaginal delivery Chief Complaint RULE OUT LABOR ABDOMINAL PAIN LABOR CP Reason for Visit Severe pre-eclampsia Vaginal delivery Gestational diabetes Pre-eclampsia Chief Complaint ABDOMINAL PAIN LABOR CP Reason for Visit Severe pre-eclampsia Vaginal delivery Gestational diabetes Pre-eclampsia Additional Source Comments INFORMATION SOURCE (unrecogn ized section and content) DATE CREATED AUTHOR 04/12/2019 [facility] DATE CREATED AUTHOR AUTHOR'S ORGANIZ ATION 09/13/2019 [facility] DATE CREATED AUTHOR AUTHOR'S ORGANIZ ATION 06/10/2020 [facility] DATE CREATED AUTHOR AUTHOR'S ORGANIZ ATION 11/02/2023 [facility] DATE CREATED AUTHOR AUTHOR'S ORGANIZ ATION 08/24/2024 [facility] Goals (unrecognized section and content) Goals may be documented in a n alternate sectionGoals may be documented in an alternate sectionGoals may be documented in an alternate sectionGoals may be documented in an alternate sectionGoals may be documented in an alternate section FOR RECORDS PERTAINING TO PATIENTS WHO ARE OR HAVE BEEN ENROLLED IN A CHEMICAL DEPENDENCY/SUBSTANCEABUSE PROGRAM, SOME INFORMATION MAY BE OMITTED. This clinical summary was aggregated from multiple sources. Caution should be exercised in using it in the provision of clinical care. This summary normalizes information from multiple sources, and as a consequence, information in this document may materially change the coding, format and clinical context of patient data. In addition, data may be omitted in some cases. CLINICAL DECISIONS SHOULD BE BASED ON THE PRIMARY CLINICAL RECORDS. [facility]. provides no warranty or guarantee of the accuracy or completeness of information in this document.
--- NOTE | 2025-03-06 17:59 | ED.VIS.GI ---
HPI HPI - GI History of Present Illness Chief Complaint: Abd Pain Informant: patient Narrative Narrative: Patient is a 24-year-old G2, P1 currently 9 weeks gestation by last menstrual period (is not had an ultrasound or seen OB yet) presenting with worsening abdominal pain. She states that she has been cramping abdominal pain that she found she was . She denies any vaginal bleeding or spotting. Denies any urinary symptoms. Started to have worsening diffuse crampy abdominal pain today. Has had worsening vomiting and states he had a fever of 101 today. Denies any abnormal vaginal discharge. There is a history of any abdominal surgeries. Does have a history of kidney stones states this feels very different. States her bowel movements have been okay. No other complaints or concerns reported at this time. [facility] Medical History Sinus infection Depression Anxiety Pre-eclampsia Gestational diabetes Tonsillectomy planned Home Medications ?Medication ?Instructions ?Recorded ?Last Taken ?Type montelukast 10 mg tablet 10 mg PO DAILY 08/02/14 05/21/22 08:00 History [id number] 1 mg 1 tab PO DAILY 04/25/22 05/21/22 08:00 History tablet aspirin 81 mg chewable tablet 81 mg PO QDAY 02/24/25 Unknown History ondansetron 4 mg disintegrating 4 mg PO Q8H PRN PRN Nausea #10 tabs 03/06/25 Unknown Rx tablet Allergy/AdvReac Type Severity Reaction Status Date / Time egg AdvReac Vomiting Verified 03/06/25 17:10 Family History Father Heart disease Grandmother Heart disease Surgical History History of tonsillectomy Social History adopted: No household members: spouse, family and children number of children: 3 current occupational status: employed current occupation: Daycare worker pets and animals: Yes pets and animals: cat(s) and dog(s) history of recent travel: No Smoking Status: Never smoker alcohol intake: never substance use type: does not use well-balanced diet: about half the time caffeine: Yes Type: coffee and tea eating out: 1-3 times/week what type of physical activity do you participate in: walking frequency: 1-2 times per week angelica/scientologist: None seatbelt use: always do you feel safe at home: Yes additional social history: Tono hare in [place] ROS ROS ED Constitutional Constitutional ED: Reports fever(s) ENT ENT ED: Denies sore throat Cardiovascular Cardiovascular: Denies chest pain Respiratory/Chest Respiratory/Chest: Denies cough or dyspnea Gastrointestinal Gastrointestinal: Reports abdominal pain, nausea and vomiting; Denies constipation or diarrhea Genitourinary Genitourinary ED: Denies dysuria, hematuria or urinary frequency Integumentary Denies rash Neurologic Neurologic: Denies weakness Psychiatric Psychiatric: Reports anxiety EXAM Physical Exam Const Vital Signs: 03/06/25 17:08 03/06/25 17:15 03/06/25 19:07 Temperature 98.6 F 98.6 F Temperature Source Oral Oral Pulse Rate 122 H 89 100 Respiratory Rate 19 H 18 16 Blood Pressure 117/104 H 127/76 H 100/58 L Blood Pressure Mean 108 93 72 Pulse Ox 100 99 100 Oxygen Delivery Method Room Air Room Air Room Air 03/06/25 21:00 03/06/25 21:13 Temperature 98.8 F 98.8 F Temperature Source Oral Pulse Rate 77 77 Respiratory Rate 16 16 Blood Pressure 98/66 98/66 Blood Pressure Mean 76 76 Pulse Ox 100 100 Oxygen Delivery Method Room Air Positive well nourished and well developed General Appearance ED: well developed and NAD HEENT Reports moist mucous membranes Neck supple Resp normal respiratory effort and clear to auscultation bilaterally Cardio regular rate and regular rhythm GI Auscultation: normoactive bowel sounds Palpation: soft and tender periumbilical and suprapubic; Negative for guarding, rigid or rebound tenderness present Back/Spine no CVA tenderness Extremity full ROM Neuro Sensorium / Orientation: alert Motor Exam: Negative for general weakness Psych thought process normal Mood & Affect: anxious Skin no wounds Rashes: no rashes MDM MDM MDM Narrative Medical decision making narrative: Patient evaluated for lower abdominal pain in early . Differential includes ectopic , ovarian torsion, urinary tract infection, renal colic and colitis. She is afebrile in the ER but she does report a fever prior to arrival. Abdomen is soft but diffusely tender. She has unremarkable CBC and CMP. Lipase is normal. Quant is consistent with at 64,013. Urinalysis is most consistent with contamination but no bacteria seen. Bedside ultrasound for by myself showed gestational sac but no clear pole or clear sign of intrauterine gestation. Did not appreciate a free fluid. Formal ultrasound is added on to confirm intrauterine gestation and to rule out ectopic or torsion. Ultrasound is negative for any acute process. Patient is initially given IV morphine, Zofran and fluids for symptoms. On repeat evaluation she is feeling more comfortable. Discussed that ultrasound shows gestation consistent with 8 weeks 0 days and heart rate of 174. She is comfortable following up tomorrow with her OPERATIONS BUSINESS PARTNER. Discussed that I do not know the cause of her pain but she has largely normal workup. At this time she will be discharged home with a prescription for Zofran and outpatient follow-up with ER return precautions. Lab Data Attestation: I reviewed the patient's lab results. Labs: Laboratory Results - last 24 hr 03/06/25 03/06/25 17:30 18:30 WBC 7.4 RBC 4.28 Hgb 12.7 Hct 37.0 MCV 86.4 MCH 29.7 MCHC 34.3 RDW Std Deviation 41.7 RDW Coeff of Kylee 13.3 Plt Count 194 MPV 12.0 Immature Gran % (Auto) 0.300 Neut % (Auto) 77.0 H Lymph % (Auto) 16.2 L [place] % (Auto) 6.0 Eos % (Auto) 0.4 Baso % (Auto) 0.1 Absolute Neuts (auto) 5.7 Absolute Lymphs (auto) 1.19 Nucleated RBC % 0 Sodium 136 Potassium 3.4 Chloride 101 Carbon Dioxide 21.9 Anion Gap 13 BUN 7 Creatinine 0.51 L Estim Creat Clear Calc 196.73 Est GFR (MDRD) Non-Af 132 BUN/Creatinine Ratio 14.2 Glucose 94 Calcium 9.4 Total Bilirubin 0.46 AST 18 ALT 24 Alkaline Phosphatase 83 Total Protein 7.5 Albumin 4.3 Globulin 3.3 Albumin/Globulin Ratio 1.3 Lipase 39 HCG, Quant 66462 H Serum , Qual POSITIVE Urine Color Yellow Urine Clarity Cloudy Urine pH 7.0 Ur Specific [place] 1.010 Urine Protein 30 H Urine Glucose (UA) Normal Urine Ketones 5 H Urine Occult Blood Negative Urine Nitrite Negative Urine Bilirubin Negative Urine Urobilinogen Normal Ur Leukocyte Esterase 500 H Urine RBC 0-5 SEEN Urine WBC 10-25 SEEN Ur Squamous Epith Cells 10-25 SEEN Urine Bacteria 0 SEEN Urine Mucus 1+ Radiography Diagnostic Testing: Clinical Impression(s) from Imaging Studies Obstetrics Ultrasound 03/06/25 18:50 IMPRESSION: UNREMARKABLE FIRST TRIMESTER ULTRASOUND. Reading [facility] Discharge Plan Triage Chief Complaint: Abd Pain ED Provider: Lynsey Cantrell Dx/Rx/DC Orders Clinical Impression: Abdominal pain in early Instructions: ED Abdominal Pain, Early Prescriptions: New ondansetron 4 mg tablet,disintegrating 4 mg PO Q8H PRN PRN (Reason: Nausea) Qty: 10 0RF No Action aspirin 81 mg tablet,chewable 81 mg PO QDAY Patient Comments: Hx of pre-e, start taking 12-28wk GA montelukast 10 MG tablet 10 mg PO DAILY 1 mg Tablet 1 tab PO DAILY Primary Care Provider: Quintin Dc Referrals: Quintin Dc [Other] Activity Restrictions/Additional Instructions: Please follow-up with your OPERATIONS BUSINESS PARTNER tomorrow as scheduled. Make sure drinking plenty of fluids. You may take Tylenol as needed for discomfort. With worsening pain please return to the emergency room associated still leaning over. At this time your workup was normal and the exact cause of your symptoms is not clear. Print Language: Portuguese Disposition Disposition: Home, Self Care Discharge Date/Time: 03/06/25 21:16
[2025-03-06] MEDS: 0.9% Normal Saline (1000mL) 1,000 ML 999 ML IV (18:08)
[2025-03-06] MEDS: Ondansetron 4 MG/2 ML Vial IV (18:08)
[2025-03-06] MEDS: morphine 8 MG/ML Syringe IV (18:08)
[2025-03-06 18:10] LABS: Absolute Lymphocyte Count 1.19 X10^3/uL (0.83-4.51); Absolute Neutrophil Count 5.7 X10^3/uL (2.0-7.7); Basophil# 0.01 X10^3/uL; Basophil% 0.1 % (0-1); Eosinophil# 0.03 X10^3/uL; Eosinophils% 0.4 % (0-5); Hemoglobin 12.7 g/dL (12.0-15.0); Lymphocyte # 1.19 X10^3/ul (0.83-4.51); Lymphocyte % 16.2 % (19-41); Mean Corp Hgb Conc 34.3 g/dL (32-36); Mean Corpuscular Hgb 29.7 pg (27.0-32.0); Mean Corpuscular Volume 86.4 fL (81-99); Monocyte# 0.44 X10^3/uL; NRBC Flagged by Analyzer 0 % (0-5); Neutrophil # 5.67 X10^3/uL (2.7-7.7); Platelet Count 194 K/mm3 (150-450); RBC Distribution Width CV 13.3 % (11.6-14.6); RBC Distribution Width SD 41.7 fl (35.1-43.9); Red Blood Count 4.28 M/mm3 (4.2-5.4); White Blood Count 7.4 K/mm3 (4.4-11.0)
[2025-03-06 18:19] LABS: Internal QC Validated? YES +Cl - CLEAR BKGD
[2025-03-06 18:20] LABS: Pregnancy, Serum, hCG Quali. POSITIVE Negative; Record Kit Lot#, Serum Preg. 947241
[2025-03-06 18:27] LABS: ALB/GLOB Ratio 1.3 RATIO (0.9-2.4); AST(SGOT) 18 U/L (<=31); Alanine Aminotransfer ALT/SGPT 24 U/L (<=34); Albumin, Serum 4.3 g/dL (3.5-5.0); Alkaline Phosphatase 83 U/L (35-104); Anion Gap 13 (5-15); BUN 7 mg/dL (4-19); BUN/Creat Ratio 14.2 RATIO (10-20); Calcium,Total 9.4 mg/dL (7.6-11.0); Carbon Dioxide 21.9 mmol/L (21.0-32.0); Chloride 101 mmol/L (98-108); Creatinine, Serum 0.51 mg/dL (0.70-1.20); EST Glomerular Filtration Rate 132 (>60); Estimated Creatinine Clearance 196.73 ml/min (50-250); Globulin 3.3 g/dL (2.2-4.2); Glucose 94 mg/dL (70-99); Lipase 39 U/L (13-75); Potassium 3.4 mmol/L (3.3-5.1); Protein, Total 7.5 g/dL (5.9-8.4); Sodium Level 136 mmol/L (133-145); Total Bilirubin 0.46 mg/dL (0.00-1.30)
[2025-03-06 18:47] LABS: Bacteria 0 SEEN /hpf (None Seen)
[2025-03-06 18:49] LABS: Color, Urine Yellow (Yellow); Glucose, Dipstick Normal (Normal); Ketone-Dipstick 5 mg/dl (Negative); Leukocyte Esterase-Dipstick 500 /ul (Negative); Nitrite-Dipstick Negative (Negative); Occult Blood-Urine Negative /ul (Negative); Protein-Dipstick 30 mg/dl (Negative); Urine Bilirubin Dipstick Negative (Negative); Urine Clarity Cloudy (Clear); Urine Urobilinogen Normal (Normal)
--- NOTE | 2025-03-06 18:50 | US_ITS ---
PROCEDURE: TRANSVAGINAL W/PREG US 03/06/2025 REASON FOR EXAM: PAIN, EARLY TECHNIQUE: Transvaginal ultrasound imaging was obtained with Doppler. COMPARISON: None. FINDINGS: Number of Gestational Sacs: 1 Gestational Sac Shape: Normal Number of Fetuses: 1 Heart Rate: 174 (average) Yolk Sac: Present and unremarkable. Placenta: Presently not well-visualized Amniotic Fluid Volume: Subjectively normal for gestational age. Uterine Abnormalities: Maternal uterus is unremarkable. Ovaries / Adnexa: Both maternal ovaries are visualized and unremarkable. Physiologic right corpus luteum. DIMENSIONS: Parameter Measurement / EGA [place] Rump Length: 1.83 cm/8 weeks 1 day Gestational Sac: 2.84 cm/7 weeks 6 days Yolk Sac: 0.37 cm ESTIMATED GESTATIONAL AGE: By Ultrasound: 8 weeks 0 days By LMP: 9 weeks 0 days ESTIMATED DATE OF DELIVERY: By Ultrasound: 10/16/2025 By LMP: 10/09/2025 Color Doppler interrogation of the bilateral ovaries demonstrated normal venous and arterial flow. US/Transvaginal w/Preg US IMPRESSION: UNREMARKABLE FIRST TRIMESTER ULTRASOUND. Reading Location: [id number]
[2025-03-06 19:06] LABS: Squamous Epithelial Cells - UA 10-25 SEEN /hpf (5-10)
[2025-03-06 19:07] VITALS: BP 100/58; PULSE 100; RESP 16; O2SAT 100
[2025-03-06 19:07] LABS: White Blood Cells 10-25 SEEN /hpf (0-5)
[2025-03-06 19:08] LABS: Mucous, Urine 1+ /hpf (<or=2+); Red Blood Cells-Urine 0-5 SEEN /hpf (0-5)
[2025-03-06 19:53] LABS: hCG Titer Quant., Serum 64013 mIU/mL (<9 non-preg)
[2025-03-06 21:00] VITALS: BP 98/66; PULSE 77; RESP 16; TEMP 37.1; O2SAT 100
[2025-03-06 21:13] VITALS: BP 98/66; PULSE 77; RESP 16; TEMP 37.1; O2SAT 100
== END 2025-03-06 21:16 | disposition home or self-care (01) ==
PROVIDERS: Emergency Provider Emergency Medicine; Visit Provider Emergency Medicine
DX: O26.891 Other specified pregnancy related conditions, first trimester (principal); R10.9 Unspecified abdominal pain
CPT/HCPCS: 76817; 80053; 81001; 83690; 84702; 84703; 85025; 96361; 96374; 96375; 99282; A4216; J2405

== ENCOUNTER → 2025-03-07 | Outpatient (CLI) | payer OTHER, SELFPAY ==
[2025-03-07 12:12] LABS: Absolute Lymphocyte Count 1.33 X10^3/uL (0.83-4.51); Absolute Neutrophil Count 3.7 X10^3/uL (2.0-7.7); Basophil# 0.02 X10^3/uL; Basophil% 0.4 % (0-1); Eosinophil# 0.02 X10^3/uL; Eosinophils% 0.4 % (0-5); Hematocrit 36.2 % (37-47); Hemoglobin 12.1 g/dL (12.0-15.0); Lymphocyte # 1.33 X10^3/ul (0.83-4.51); Lymphocyte % 23.6 % (19-41); Mean Corp Hgb Conc 33.4 g/dL (32-36); Mean Corpuscular Hgb 29.4 pg (27.0-32.0); Mean Corpuscular Volume 87.9 fL (81-99); Monocyte# 0.52 X10^3/uL; Monocyte% 9.2 % (0-10); NRBC Flagged by Analyzer 0 % (0-5); Neutrophil # 3.72 X10^3/uL (2.7-7.7); Platelet Count 204 K/mm3 (150-450); RBC Distribution Width CV 13.7 % (11.6-14.6); RBC Distribution Width SD 43.8 fl (35.1-43.9); Red Blood Count 4.12 M/mm3 (4.2-5.4); White Blood Count 5.6 K/mm3 (4.4-11.0)
[2025-03-07 13:04] LABS: Protein, Urine (Random) 13.8 mg/dL (0.0-12.0); Protein:Creat Ratio 84 mg/g CRE (0-200)
[2025-03-07 13:18] LABS: Hemoglobin A1c 5.2 % (<=5.6)
[2025-03-07 13:26] LABS: ALB/GLOB Ratio 1.4 RATIO (0.9-2.4); AST(SGOT) 19 U/L (<=31); Alanine Aminotransfer ALT/SGPT 22 U/L (<=34); Albumin, Serum 4.2 g/dL (3.5-5.0); Alkaline Phosphatase 80 U/L (35-104); Anion Gap 13 (5-15); BUN 7 mg/dL (4-19); BUN/Creat Ratio 14.4 RATIO (10-20); Calcium,Total 9.3 mg/dL (7.6-11.0); Carbon Dioxide 22.8 mmol/L (21.0-32.0); Chloride 102 mmol/L (98-108); Creatinine, Serum 0.46 mg/dL (0.70-1.20); EST Glomerular Filtration Rate 135 (>60); Globulin 3.1 g/dL (2.2-4.2); Glucose 89 mg/dL (70-99); HIV Nonreactive (Nonreactive); Hepatitis B Surface Antigen Nonreactive (Nonreactive); Hepatitis C Antibody Nonreactive (Nonreactive); Potassium 3.9 mmol/L (3.3-5.1); Protein, Total 7.2 g/dL (5.9-8.4); Rubella IgG REAC (Nonreactive); Sodium Level 137 mmol/L (133-145); Syphilis Antibodies Nonreactive (Nonreactive); Total Bilirubin 0.33 mg/dL (0.00-1.30)
[2025-03-09 07:08] LABS: Chlamydia By Nucleic Acid AMP Negative (Negative); Gonococcus By Nucleic Acid AMP Negative (Negative)
== END | disposition home or self-care (01) ==
PROVIDERS: Visit Provider Advanced Practice Midwife
DX: O99.210 Obesity complicating pregnancy, unspecified trimester (principal); Z87.59 Personal history of other complications of pregnancy, childbirth and the puerperium; Z86.32 Personal history of gestational diabetes; Z12.4 Encounter for screening for malignant neoplasm of cervix; Z3A.00 Weeks of gestation of pregnancy not specified
CPT/HCPCS: 36415; 80053; 82570; 83036; 84156; 85025; 86703; 86762; 86780; 86803; 86850; 86900; 86901; 87086; 87088; 87340; 87491; 87591; 88175; G0145

== ENCOUNTER 2025-07-01 20:12 | Outpatient (CLI) | payer OTHER, SELFPAY ==
[2025-07-01 20:22] VITALS: BMI 37.6
[2025-07-01 20:37] VITALS: PULSE 116; O2SAT 97
[2025-07-01 20:39] VITALS: BP 117/70; PULSE 125
[2025-07-01 23:30] LABS: Glucose, Dipstick Normal (Normal); Leukocyte Esterase-Dipstick 25 /ul (Negative); Nitrite-Dipstick Negative (Negative); Occult Blood-Urine Negative /ul (Negative); Protein-Dipstick 100 mg/dl (Negative); Specific Gravity, Urine 1.020 (1.002-1.030)
[2025-07-01 23:44] LABS: Color, Urine SEE COMMENT BELOW (Yellow); Urine Bilirubin Dipstick 3 mg/dL (Negative)
[2025-07-01 23:45] LABS: Ketone-Dipstick 150 mg/dl (Negative)
[2025-07-02 00:48] VITALS: BP 107/63; PULSE 101; PULSE 94; RESP 16; TEMP 36.1; O2SAT 98
--- NOTE | 2025-07-06 17:04 | OB.TRI.PN_ITS ---
Progress Notes Date of Service: 07/01/25 Progress Note: Patient presents for triage evaluation secondary to back pain FHT: 135 Moderate variability reactive no decelerations category I tracing [place]: n regulra Contractions Assessment and plan: 25 weeks gestational age appropriate Reactive NST, urine checked given anti emetics, fluids, reassuring maternal and status patient discharged to home to follow-up as scheduled. See problem list details for additional plan information. Laboratory Studies: Laboratory Tests 07/01/25 Range/Units 23:18 Urine Color SEE COMMENT BELOW (Yellow) Urine Clarity Clear (Clear) Urine pH 5.0 (5.0 - 8.0) Ur Specific [place] 1.020 (1.002-1.030) Urine Protein 100 H (Negative) mg/dl Urine Glucose (UA) Normal (Normal) mg/dl Urine Ketones 150 A* (Negative) mg/dl Urine Occult Blood Negative (Negative) /ul Urine Nitrite Negative (Negative) Urine Bilirubin 3 H (Negative) mg/dL Urine Urobilinogen 4 H (Normal) mg/dl Ur Leukocyte Esterase 25 H (Negative) /ul Charges/Coding Procedures Urinary/Genital [id number]: 52700-73 non-stress test Interp
--- NOTE | 2025-07-06 17:04 | OB.TRI.PN_ITS ---
Progress Notes Date of Service: 07/01/25 Progress Note: Patient presents for triage evaluation secondary to back pain FHT: 135 Moderate variability reactive no decelerations category I tracing [place]: n regulra Contractions Assessment and plan: 25 weeks gestational age appropriate Reactive NST, urine checked given anti emetics, fluids, reassuring maternal and status patient discharged to home to follow-up as scheduled. See problem list details for additional plan information. Laboratory Studies: Laboratory Tests 07/01/25 Range/Units 23:18 Urine Color SEE COMMENT BELOW (Yellow) Urine Clarity Clear (Clear) Urine pH 5.0 (5.0 - 8.0) Ur Specific [place] 1.020 (1.002-1.030) Urine Protein 100 H (Negative) mg/dl Urine Glucose (UA) Normal (Normal) mg/dl Urine Ketones 150 A* (Negative) mg/dl Urine Occult Blood Negative (Negative) /ul Urine Nitrite Negative (Negative) Urine Bilirubin 3 H (Negative) mg/dL Urine Urobilinogen 4 H (Normal) mg/dl Ur Leukocyte Esterase 25 H (Negative) /ul Charges/Coding Procedures Urinary/Genital [id number]: 94313-18 non-stress test Interp
== END 2025-07-02 01:20 | disposition home or self-care (01) ==
LOC: WPOUT 20:15 → WP 20:16
PROVIDERS: Obstetrics & Gynecology; Referring Provider Obstetrics & Gynecology; Visit Provider Obstetrics & Gynecology
DX: O99.891 Other specified diseases and conditions complicating pregnancy (principal); M54.9 Dorsalgia, unspecified; Z3A.25 25 weeks gestation of pregnancy
CPT/HCPCS: 96365; 96366 ×2; 96375; 96368; 59025; 59050; 81002; 87086; 87088; 99221; G0378; J2405

== ENCOUNTER → 2025-07-18 | Outpatient (CLI) | payer OTHER, SELFPAY ==
[2025-07-18 12:12] LABS: Hematocrit 35.2 % (37-47); Hemoglobin 12.0 g/dL (12.0-15.0); Immature Granulocytes Count 0.030 X10^3/uL (0.0-0.0); Mean Corp Hgb Conc 34.1 g/dL (32-36); Mean Corpuscular Volume 89.8 fL (81-99); Mean Platelet Vol. 12.5 fl (6.2-12.0); NRBC Flagged by Analyzer 0 % (0-5); Platelet Count 218 K/mm3 (150-450); RBC Distribution Width CV 15.0 % (11.6-14.6); RBC Distribution Width SD 49.1 fl (35.1-43.9); Red Blood Count 3.92 M/mm3 (4.2-5.4); White Blood Count 9.5 K/mm3 (4.4-11.0)
[2025-07-18 12:59] LABS: Glucose Challenge Gest 1H 50g 122 mg/dL (70-140); HIV Nonreactive (Nonreactive); Syphilis Antibodies Nonreactive (Nonreactive)
== END | disposition home or self-care (01) ==
PROVIDERS: Advanced Practice Midwife; Visit Provider Obstetrics & Gynecology
DX: O09.92 Supervision of high risk pregnancy, unspecified, second trimester (principal); Z13.1 Encounter for screening for diabetes mellitus; Z3A.00 Weeks of gestation of pregnancy not specified
CPT/HCPCS: 36415; 82950; 85025; 86703; 86780

== ENCOUNTER → 2025-07-28 | Outpatient (CLI) | payer OTHER, SELFPAY | END | disposition home or self-care (01) | LOC: LABSPEC 16:18 | PROVIDERS: Visit Provider Obstetrics & Gynecology | DX: O26.899 Other specified pregnancy related conditions, unspecified trimester (principal); R10.20 Pelvic and perineal pain unspecified side; Z3A.00 Weeks of gestation of pregnancy not specified | CPT/HCPCS: 87086; 87088 ==

== ENCOUNTER 2025-09-04 23:40 | Outpatient (CLI) | payer OTHER, SELFPAY ==
[2025-09-04 23:47] VITALS: BMI 39.3
[2025-09-04 23:57] VITALS: PULSE 92; O2SAT 97
[2025-09-04 23:58] VITALS: BP 116/71; PULSE 95; RESP 14; TEMP 36.6
--- NOTE | 2025-09-05 07:01 | OB.TRI.PN ---
Progress Notes Progress Note: Holli Moran is a at 35w1d who presented to OB triage with shortness of breath and chest pain. She was therefore sent to the ED for cardiovascular workup where EKG was normal sinus rhythm, her D-dimer was 0.83 and CTA showed no acute findings. It was suspected that her symptoms were due to URI and costochondritis and she was discharged in stable condition. From an OB standpoint, she did have back pain but denied contractions, leakage of fluid, vaginal bleeding, or decreased movement. NST FHR Rate Baby A Baseline: 115 Variability:: Moderate Accelerations:: 15 x 15 Decelerations:: None NST Reactive:: Yes FHR Category:: Category I Uterine Activity:: no contractions
== END 2025-09-05 00:03 | disposition home or self-care (01) ==
LOC: WPOUT 23:46 → WP 23:46
PROVIDERS: Referring Provider Student in an Organized Health Care Education/Training Program; Visit Provider Student in an Organized Health Care Education/Training Program
DX: O99.891 Other specified diseases and conditions complicating pregnancy (principal); R06.02 Shortness of breath; R07.9 Chest pain, unspecified; Z3A.35 35 weeks gestation of pregnancy; M54.9 Dorsalgia, unspecified
CPT/HCPCS: 59025; 59050; 99221; G0378

== ENCOUNTER 2025-09-05 00:13 | Emergency (ER) | payer OTHER, SELFPAY ==
[2025-09-05 00:13] VITALS: BP 119/77; PULSE 82; RESP 18; TEMP 36.4; O2SAT 99; BMI 39.2
--- NOTE | 2025-09-05 00:36 | EKG12_ITS ---
Test Reason : CP Blood Pressure : */* mmHG Vent. Rate : 87 BPM Atrial Rate : 87 BPM P-R Int : 132 ms QRS Dur : 88 ms QT Int : 364 ms P-R-T Axes : 15 54 23 degrees QTcB Int : 438 ms Normal sinus rhythm Normal ECG Confirmed by Tono Morgan ([id number]), purchase request editor RICARDO DOWLING ([id number]) on 09/06/2025 8:37:59 AM Referred By: AYANA Confirmed By: Tono Morgan
[2025-09-05 01:07] LABS: Hematocrit 34.7 % (37-47); Hemoglobin 11.6 g/dL (12.0-15.0); Immature Granulocytes Count 0.050 X10^3/uL (0.0-0.0); Mean Corp Hgb Conc 33.4 g/dL (32-36); Mean Corpuscular Volume 88.5 fL (81-99); Mean Platelet Vol. 12.0 fl (6.2-12.0); NRBC Flagged by Analyzer 0 % (0-5); Platelet Count 209 K/mm3 (150-450); RBC Distribution Width CV 14.6 % (11.6-14.6); RBC Distribution Width SD 47.0 fl (35.1-43.9); Red Blood Count 3.92 M/mm3 (4.2-5.4); White Blood Count 12.0 K/mm3 (4.4-11.0)
[2025-09-05 01:13] VITALS: PULSE 81; RESP 17; O2SAT 100
[2025-09-05 01:25] LABS: Anion Gap 14 (5-15); BUN 8 mg/dL (4-19); BUN/Creat Ratio 16.4 RATIO (10-20); Calcium,Total 9.0 mg/dL (7.6-11.0); Carbon Dioxide 21.9 mmol/L (21.0-32.0); Chloride 103 mmol/L (98-108); D-Dimer Quantitative (DVT/PE) 0.83 FEU/ug/m (0.27-0.49); Estimated Creatinine Clearance 195.04 ml/min (50-250); Glucose 107 mg/dL (70-99); Magnesium 2.1 mg/dL (1.5-2.2); Potassium 3.6 mmol/L (3.3-5.1); Troponin T High Sensitivity < 6 ng/L (<=14)
[2025-09-05] MEDS: 0.9% Normal Saline (1000mL) 1,000 ML 999 ML IV (01:34)
[2025-09-05 02:00] VITALS: BP 121/94; PULSE 77; RESP 18; O2SAT 98
--- NOTE | 2025-09-05 02:05 | CT_ITS ---
PROCEDURE: CTA CHEST W/WO CONTRAST 09/05/2025 REASON FOR EXAM: CHEST PAIN WITH ELEVATED D-DIMER TECHNIQUE: Procedure Code: [id number] Modality: CT Procedure: CTA CHEST W/WO CONTRAST Multiplanar Sagittal and Coronal images were obtained. CONTRAST: Isovue 370 VOLUME: 100 mL One or more dose reduction techniques were used (e.g., Automated exposure control, adjustment of the mA and/or kV according to patient size, use of iterative reconstruction technique). RADIATION DOSE SUMMARY: CTDlvol: 15.35 mGy DLP: 456 mGycm COMPARISON: CT scan on 07/12/2022. FINDINGS: Normal enhancement of the main pulmonary artery and right and left pulmonary arteries. Normal enhancement of the bilateral peripheral pulmonary arteries. There is no demonstrated pulmonary embolism. Normal thoracic aorta and visualized great vessels. There is no demonstrated aortic dissection. Normal heart and pericardium. Normal mediastinum. Normal hilar regions. Normal visualized trachea and bronchi. The lungs are well expanded. Normal pulmonary parenchyma. Normal pleura. Normal chest wall structures. Normal osseous structures. Mild splenomegaly. Normal remaining visualized upper abdomen. CT/CTA Chest W/WO Contrast IMPRESSION: No CT evidence of pulmonary embolus or aortic dissection. Reading [facility] [id number]
[2025-09-05 02:48] VITALS: BP 121/94; PULSE 84; RESP 18; O2SAT 97
[2025-09-05 03:23] LABS: Troponin T High Sens 2 HR < 6 ng/L (<=14)
[2025-09-05 03:26] VITALS: BP 114/74; PULSE 86; RESP 19; TEMP 36.7; O2SAT 99
--- NOTE | 2025-09-05 03:28 | EX.ED.DYSGE1 ---
HPI History of Present Illness Chief Complaint: Chest Pain Informant: patient and spouse/S.O. Narrative Narrative: Patient is a 25-year-old female who is a G2, P1 approximate 35 weeks . She states she has had sinus congestion and pressure with slight cough. She states that today she has noticed some midsternal to left-sided chest discomfort. She states has been no trauma or excessive activity. She denies any overlying soft tissue skin changes to suggest infection. She states that there has been no recent travel or surgery and she denies any history of PE. She states however that her father had heart attacks beginning at roughly 30 years old. She states the pain does not radiate she denies any nausea vomiting diaphoresis or shortness of breath associated with this. But was concerned this could be cardiac in nature she presents for evaluation [facility] Medical History contractions Sinus infection Depression Anxiety Pre-eclampsia Gestational diabetes Tonsillectomy planned Home Medications ?Medication ?Instructions ?Recorded ?Last Taken ?Type montelukast 10 mg tablet 10 mg PO DAILY 08/02/14 05/21/22 08:00 History xtvaombh-zxa-Fx-FA 1 mg 1 tab PO DAILY 04/25/22 05/21/22 08:00 History tablet ondansetron 4 mg disintegrating 4 mg PO Q8H PRN PRN Nausea #10 tabs 03/06/25 Unknown Rx tablet Allergy/AdvReac Type Severity Reaction Status Date / Time egg AdvReac Vomiting Verified 09/05/25 00:14 Family History Father Heart disease Grandmother Heart disease Surgical History History of tonsillectomy Social History adopted: No household members: spouse, family and children number of children: 1 current occupational status: employed current occupation: Daycare worker pets and animals: Yes pets and animals: cat(s) and dog(s) history of recent travel: No Smoking Status: Never smoker alcohol intake: never substance use type: does not use well-balanced diet: about half the time caffeine: Yes Type: coffee and tea eating out: 1-3 times/week what type of physical activity do you participate in: walking frequency: 1-2 times per week angelica/oriental orthodox: None seatbelt use: always do you feel safe at home: Yes additional social history: [employer] - lead mechanical engineer in [place] ROS ROS ED Constitutional Constitutional ED: Denies chills or fever(s) Eyes Eyes: Denies change in vision ENT ENT ED: Reports rhinorrhea and sore throat Cardiovascular Cardiovascular: Reports chest pain; Denies palpitations or racing heartbeat Respiratory/Chest Respiratory/Chest: Reports cough; Denies dyspnea Gastrointestinal Gastrointestinal: Denies abdominal pain, diarrhea, nausea or vomiting Genitourinary Genitourinary ED: Denies dysuria or hematuria Musculoskeletal Musculoskeletal: Denies back pain or myalgias Integumentary Denies rash Neurologic Neurologic: Denies headache(s) Hematologic/Lymphatic Hematologic/Lymphatic: Denies easy bleeding or easy bruising EXAM Physical Exam Const Vital Signs: 09/05/25 00:13 09/05/25 00:13 09/05/25 01:13 Temperature 97.6 F L Temperature Source Oral Pulse Rate 82 81 Respiratory Rate 18 17 Respiratory Effort Normal Non-Labored Blood Pressure 119/77 Blood Pressure Mean 91 Pulse Ox 99 100 Oxygen Delivery Method Room Air Room Air 09/05/25 02:00 09/05/25 02:48 09/05/25 03:26 Temperature 98.1 F Temperature Source Pulse Rate 77 84 86 Respiratory Rate 18 18 19 H Respiratory Effort Blood Pressure 121/94 H 121/94 H 114/74 Blood Pressure Mean 103 103 87 Pulse Ox 98 97 99 Oxygen Delivery Method Room Air Room Air Positive well nourished and well developed General Appearance ED: well developed; Negative for pallor HEENT HEENT Narrative: Normocephalic atraumatic No tongue or lip swelling no oral lesions no airway edema or compromise Cobblestoning is noted in the posterior pharynx consistent with sinus drainage; however no secondary findings to suggest infection Eyes PERRL and EOMs intact bilaterally General Eye ED: Negative for scleral icterus Neck supple and no JVD Chest Wall Chest Narrative: There is reproducible midsternal to left anterior chest wall pain with palpation Patient states this is the same pain she has been experiencing No subcutaneous emphysema noted Resp normal respiratory effort and clear to auscultation bilaterally Cardio regular rate and regular rhythm Rate: other Other Details: Heart is regular rate and rhythm without murmurs rubs or gallop Radial and carotid pulses are equal and symmetric Extremity normal to inspection Extremity Narrative: No asymmetric edema no pitting edema negative Homans' sign bilaterally Neuro oriented x3, CN's II-XII intact bilaterally and no sensory deficits noted Sensorium / Orientation: alert Motor Exam: strength 5/5 throughout Psych Psych Narrative: Patient has a flat affect Skin no rashes or lesions noted Skin Narrative: No overlying soft tissue skin changes to suggest trauma or infection General Skin Exam: Negative for jaundice or pallor MDM MDM MDM Narrative Medical decision making narrative: Patient arrived to the ER with stable vitals. She is low risk for cardiovascular disease her only risk factor is her father having heart disease beginning at a young age. She has symptoms consistent with viral infection with congestion drainage and cough. In order to assess for COVID influenza or RSV a viral swab will be obtained. In order to assess for acute coronary syndrome versus cardiac dysrhythmia an EKG will be ordered and should be placed on the making line worker. As she does report pain is slightly worse with inspiration and she is she does have higher risk for potential pulmonary embolus so a D-dimer will be added. The patient's EKG revealed sinus rhythm without ischemic findings and there was no dysrhythmia noted while on the making line worker. Her initial and delta troponin were less than 6 going against ACS or acute viral myocarditis. The patient's D-dimer was slightly elevated at 0.83 which is most likely due to her status but in order to assess for pulmonary embolus versus lung pathology like pneumonia or pneumothorax a CTA of the chest was ordered. This revealed no acute finding. Therefore as she has a overall negative workup is low risk for cardiovascular disease and has reproducible chest wall pain this is most likely costochondritis from her viral illness. As there is no overlying soft tissue skin changes I do not feel patient has shingles or cellulitis or abscess. Therefore as workup is negative there is no need for further intervention and she is otherwise safe for discharge History & Record Review Discussion w/independent historian: Patient and Significant other Lab Data Attestation: I reviewed the patient's lab results. Labs: Laboratory Results - last 24 hr 09/05/25 09/05/25 00:53 02:53 WBC 12.0 H RBC 3.92 L Hgb 11.6 L Hct 34.7 L MCV 88.5 MCH 29.6 MCHC 33.4 RDW Std Deviation 47.0 H RDW Coeff of Kylee 14.6 Plt Count 209 MPV 12.0 Immature Gran % (Auto) 0.400 Neut % (Auto) 70.4 H Lymph % (Auto) 23.5 Izard % (Auto) 5.4 Eos % (Auto) 0.1 Baso % (Auto) 0.2 Absolute Neuts (auto) 8.4 H Absolute Lymphs (auto) 2.81 Nucleated RBC % 0 D-Dimer Quant (PE/DVT) 0.83 H* Sodium 138 Potassium 3.6 Chloride 103 Carbon Dioxide 21.9 Anion Gap 14 BUN 8 Creatinine 0.49 L Estim Creat Clear Calc 195.04 Est GFR (MDRD) Non-Af 133 BUN/Creatinine Ratio 16.4 Glucose 107 H Calcium 9.0 Magnesium 2.1 Troponin T High Sens < 6 Troponin T Hi Sens 2 Hr < 6 Radiography Diagnostic Testing: Clinical Impression(s) from Imaging Studies Chest CTA 09/05/25 02:05 IMPRESSION: No CT evidence of pulmonary embolus or aortic dissection. Reading Location: [place] [id number] Discharge Plan Triage Chief Complaint: Chest Pain ED Provider: Torres Lozaad Dx/Rx/DC Orders Clinical Impression: Nonspecific chest pain, , Anxiety and depression, Viral syndrome Instructions: ED Chest Pain, Uncertain Cause, ED Chest Wall Pain, Costochondritis Prescriptions: No Action montelukast 10 MG tablet 10 mg PO DAILY 1 mg Tablet 1 tab PO DAILY ondansetron 4 mg tablet,disintegrating 4 mg PO Q8H PRN PRN (Reason: Nausea) Qty: 10 0RF Primary Care Provider: Quintin Dc Referrals: Quintin Dc, DO [Primary Care Provider, Family Practice] Activity Restrictions/Additional Instructions: Your workup today revealed no sign of abnormal heart rhythm heart damage or signs of blood clot or tear. With your congestion and cough there is also no pneumonia and your COVID influenza and RSV test was negative. Your workup and exam would indicate that your chest discomfort is most likely inflammation to the chest wall/rib cage from the virus causing you to have congestion and cough. This should resolve spontaneously over the next few weeks. Return to the ER should you have any further concerns Print Language: Occitan Disposition Disposition: Home, Self Care Discharge Date/Time: 09/05/25 03:36
== END 2025-09-05 03:36 | disposition home or self-care (01) ==
PROVIDERS: Emergency Provider Emergency Medicine; PCP Family Medicine; Visit Provider Emergency Medicine
DX: O99.891 Other specified diseases and conditions complicating pregnancy (principal); O99.343 Other mental disorders complicating pregnancy, third trimester; B34.9 Viral infection, unspecified; R07.89 Other chest pain; F32.A Depression, unspecified; F41.9 Anxiety disorder, unspecified; Z3A.35 35 weeks gestation of pregnancy; O98.513 Other viral diseases complicating pregnancy, third trimester
CPT/HCPCS: 71275; 80048; 83735; 84484; 85025; 85379; 87631; 93005; 96360; 99282; Q9967; A4216

== ENCOUNTER 2025-09-13 12:03 | Outpatient (CLI) | payer OTHER, SELFPAY ==
--- NOTE | 2025-09-13 12:14 | US_ITS ---
PROCEDURE: OB BIOPHYSICAL PROF W/O NST 09/13/2025 REASON FOR EXAM: DECREASED MOVEMENT TECHNIQUE: Procedure Code: USBIOWO Modality: US Procedure: OB BIOPHYSICAL PROF W/O NST COMPARISON: 03/06/2025 FINDINGS FETUS: There is a single living intrauterine gestation. POSITION: position is cephalic. HEART RATE: The heart rate is 135 bpm and regular. ANATOMIC SURVEY: Detailed anatomy survey not performed. The visualized anatomy is unremarkable. CERVIX: Not well visualized. PLACENTA: The placenta is anterior. Grade 2. No demonstrated evidence of previa or abruption. BREATHING MOVEMENTS: Score 0/2. BODY MOVEMENTS: Score 0/2. TONE: Score 2/2. QUALITATIVE AMNIOTIC FLUID VOLUME: 8.7 cm, largest pocket 3.0 cm Score 2/2. US/OB Biophysical Prof W/O NST IMPRESSION: 1. Single live intrauterine gestation. 2. Abnormal biophysical profile, 01/04. No breathing or gross body moveme nts seen. Reading Location: [id number]
[2025-09-13 12:29] VITALS: BP 143/86; PULSE 102; PULSE 85; O2SAT 80
[2025-09-13 12:30] VITALS: RESP 18; TEMP 36.3
[2025-09-13 12:31] VITALS: BP 116/71; PULSE 103
[2025-09-13 12:41] VITALS: BMI 39.1
[2025-09-13 12:43] VITALS: BP 115/72; PULSE 107
[2025-09-13 13:01] LABS: Hematocrit 34.8 % (37-47); Hemoglobin 12.2 g/dL (12.0-15.0); Mean Corp Hgb Conc 35.1 g/dL (32-36); Mean Corpuscular Volume 86.4 fL (81-99); Mean Platelet Vol. 12.0 fl (6.2-12.0); Platelet Count 210 K/mm3 (150-450); RBC Distribution Width CV 14.5 % (11.6-14.6); RBC Distribution Width SD 45.6 fl (35.1-43.9); Red Blood Count 4.03 M/mm3 (4.2-5.4); White Blood Count 12.4 K/mm3 (4.4-11.0)
[2025-09-13 13:12] LABS: AST(SGOT) 15 U/L (<=31); Alanine Aminotransfer ALT/SGPT 12 U/L (<=34); Estimated Creatinine Clearance 212.02 ml/min (50-250); Uric Acid 6.1 mg/dL (2.6-6.0)
[2025-09-13 13:55] LABS: Creatinine, Urine (random) 44.80 mg/dL (28.00-217.00); Protein, Urine (Random) 7.3 mg/dL (0.0-12.0); Protein:Creat Ratio 164 mg/g CRE (0-200)
--- NOTE | 2025-09-13 14:03 | OB.TRI.PN ---
Progress Notes Date of Service: 09/13/25 Progress Note: Patient presents for triage evaluation secondary to headache and decreased movement at 36 weeks FHT:125 Moderate variability reactive no decelerations category I tracing [place]: no Contractions Assessment and plan: normal labs, Reactive NST, reassuring maternal and status patient discharged to home to follow-up in office next week. See problem list details for additional plan information. Laboratory Studies: Laboratory Tests 09/13/25 09/13/25 Range/Units 13:20 12:50 WBC 12.4 H (4.4-11.0) K/mm3 RBC 4.03 L (4.2-5.4) M/mm3 Hgb 12.2 (12.0-15.0) g/dL Hct 34.8 L (37-47) % MCV 86.4 (81-99) fL MCH 30.3 (27.0-32.0) pg MCHC 35.1 (32-36) g/dL RDW Std Deviation 45.6 H (35.1-43.9) fl RDW Coeff of Kylee 14.5 (11.6-14.6) % Plt Count 210 (150-450) K/mm3 MPV 12.0 (6.2-12.0) fl Creatinine 0.45 L (0.70-1.20) mg/dL Estim Creat Clear Calc 212.02 (50-250) ml/min Est GFR (MDRD) Non-Af 135 (>60) Uric Acid 6.1 H (2.6-6.0) mg/dL AST 15 (<=31) U/L ALT 12 (<=34) U/L U Random Total Protein 7.3 (0.0-12.0) mg/dL Urine Creatinine 44.80 (28.00-217.00) mg/dL Protein/Creatinin Ratio 164 (0-200) mg/g CRE Charges/Coding Multi Select Codes Urinary/Genital Urinary/Genital CPT Codes: 33132-80 non-stress test Interp Assessment & Plan (1) Anemia: QUALIFIERS: Anemia type: unspecified type Qualified Code(s): D64.9 - Anemia, unspecified COMMENT: followed hem/onc at [facility] hematology- sees them in March 2025. She receives iron infusions. (2) Hx of depression, currently : COMMENT: weaned off Lexapro (off brand) with +HPT (3) Headache: (4) History of gestational diabetes mellitus (GDM): COMMENT: A1C 5.2 at NOB (5) Obesity affecting : QUALIFIERS: Trimester: second trimester Obesity type affecting : unspecified obesity Qualified Code(s): O99.212 - Obesity complicating , second trimester COMMENT: pre- BMI- 38. start nsts at 37 weeks. (6) History of pre-eclampsia: COMMENT: baby ASA 81mg, 2022 first , was not on medication per Pt (7) Supervision of high-risk : QUALIFIERS: Trimester: third trimester Qualified Code(s): O09.93 - Supervision of high risk , unspecified, third trimester COMMENT: PRR, , PAIGE 10/09/25 boy [place] (8) : QUALIFIERS: Weeks of gestation: 36 weeks Qualified Code(s): Z3A.36 - 36 weeks gestation of COMMENT: NIPT w gender/carrier- declines. Anatomy nl.
[2025-09-13 15:03] VITALS: BP 118/71; PULSE 98
--- NOTE | 2025-09-13 15:53 | US_ITS ---
EXAM: OB BIOPHYSICAL PROF W/O NST, 09/13/2025 4:49 p.m. CLINICAL HISTORY: REPEAT BPP PER DR PENA. Reportedly 36 weeks and 2 days with PAIGE 10/09/2025 by previously established dates. COMPARISON: 1:32 p.m.. TECHNIQUE: A limited transabdominal obstetrical ultrasound was performed to determine biophysical profile score. FINDINGS: Gravid uterus with a single fetus. Breathing movement: 2 Gross Body movement: 2 Tone: 2 Qualitative Amniotic Fluid: 2 Amniotic Fluid Index: 7.9 (normal 5-25), deepest vertical pocket 4.9 cm (normal 2-8 cm). presentation: Cephalic. heart rate: Regular, 147 bpm. Placenta: Anterior. US/OB Biophysical Prof W/O NST IMPRESSION: 1. Biophysical Profile Score of 8 out of a possible 8. 2. Additional description as above. Reading Location: [id number]
[2025-09-13 19:11] VITALS: BP 115/73; PULSE 108
--- NOTE | 2025-09-13 19:19 | OB.TRI.PN_ITS ---
Progress Notes Date of Service: 09/13/25 Progress Note: The patient was given a diet coke, some crackers, and tylenol. A flu/covid/rsv swab was collected and bpp repeated. After all of this the bpp came back an 05/06 and overall status 07/08 with a reactive nst, her headache improved, and swabs were negative. She feels comfortable going home with close follow up. Laboratory Studies: Laboratory Tests 09/13/25 09/13/25 Range/Units 13:20 12:50 WBC 12.4 H (4.4-11.0) K/mm3 RBC 4.03 L (4.2-5.4) M/mm3 Hgb 12.2 (12.0-15.0) g/dL Hct 34.8 L (37-47) % MCV 86.4 (81-99) fL MCH 30.3 (27.0-32.0) pg MCHC 35.1 (32-36) g/dL RDW Std Deviation 45.6 H (35.1-43.9) fl RDW Coeff of Kylee 14.5 (11.6-14.6) % Plt Count 210 (150-450) K/mm3 MPV 12.0 (6.2-12.0) fl Creatinine 0.45 L (0.70-1.20) mg/dL Estim Creat Clear Calc 212.02 (50-250) ml/min Est GFR (MDRD) Non-Af 135 (>60) Uric Acid 6.1 H (2.6-6.0) mg/dL AST 15 (<=31) U/L ALT 12 (<=34) U/L U Random Total Protein 7.3 (0.0-12.0) mg/dL Urine Creatinine 44.80 (28.00-217.00) mg/dL Protein/Creatinin Ratio 164 (0-200) mg/g CRE NST: baseline 120's, moderate variability, + accels, no decelerations bpp: 05/06 Exam: HEENT: wnl abdomen: gravid, non-tender extremities: trace edema bilaterally no calf tenderness Charges/Coding Visit Charges Office Visits / Consults: [id number] OV L3 Est 20min Assessment & Plan (1) Headache: (2) Anemia: QUALIFIERS: Anemia type: unspecified type Qualified Code(s): D64.9 - Anemia, unspecified COMMENT: followed hem/onc at [facility] hematology- sees them in March 2025. She receives iron infusions. (3) Hx of depression, currently : COMMENT: weaned off Lexapro (off brand) with +HPT (4) History of gestational diabetes mellitus (GDM): COMMENT: A1C 5.2 at NOB (5) Obesity affecting : QUALIFIERS: Trimester: second trimester Obesity type affecting : unspecified obesity Qualified Code(s): O99.212 - Obesity complicating , second trimester COMMENT: pre- BMI- 38. start nsts at 37 weeks. (6) History of pre-eclampsia: COMMENT: baby ASA 81mg, 2022 first , was not on medication per Pt (7) Supervision of high-risk : QUALIFIERS: Trimester: third trimester Qualified Code(s): O09.93 - Supervision of high risk , unspecified, third trimester COMMENT: PRR, , PAIGE 10/09/25 boy [facility] [place] (8) : QUALIFIERS: Weeks of gestation: 36 weeks Qualified Code(s): Z3A.36 - 36 weeks gestation of COMMENT: NIPT w gender/carrier- declines. Anatomy nl. PLAN: Plan ok to dc patient to home with follow up friday
== END 2025-09-13 19:15 | disposition home or self-care (01) ==
LOC: WPOUT 12:08 → WP 12:08
PROVIDERS: Referring Provider Advanced Practice Midwife; Visit Provider Advanced Practice Midwife
DX: O99.891 Other specified diseases and conditions complicating pregnancy (principal); O99.013 Anemia complicating pregnancy, third trimester; O99.213 Obesity complicating pregnancy, third trimester; D64.9 Anemia, unspecified; R51.9 Headache, unspecified; E66.9 Obesity, unspecified; Z3A.36 36 weeks gestation of pregnancy
CPT/HCPCS: 36415; 59025; 59050; 76819; 82565; 82570; 84156; 84450; 84460; 84550; 85027; 87081; 87631; 99221; G0378

== ENCOUNTER → 2025-09-19 | Outpatient (CLI) | payer OTHER, SELFPAY ==
[2025-09-19 16:58] LABS: Hematocrit 37.4 % (37-47); Hemoglobin 12.5 g/dL (12.0-15.0); Immature Granulocytes Count 0.040 X10^3/uL (0.0-0.0); Mean Corp Hgb Conc 33.4 g/dL (32-36); Mean Corpuscular Volume 89.3 fL (81-99); Mean Platelet Vol. 12.6 fl (6.2-12.0); NRBC Flagged by Analyzer 0 % (0-5); Platelet Count 231 K/mm3 (150-450); RBC Distribution Width CV 14.6 % (11.6-14.6); RBC Distribution Width SD 47.1 fl (35.1-43.9); Red Blood Count 4.19 M/mm3 (4.2-5.4); White Blood Count 11.7 K/mm3 (4.4-11.0)
[2025-09-19 17:15] LABS: AST(SGOT) 17 U/L (<=31); Alanine Aminotransfer ALT/SGPT 10 U/L (<=34); Albumin, Serum 3.4 g/dL (3.5-5.0); Alkaline Phosphatase 113 U/L (35-104); Anion Gap 17 (7-18); BUN 11 mg/dL (4-19); BUN/Creat Ratio 18.3 RATIO (10-20); Calcium,Total 9.4 mg/dL (7.6-11.0); Carbon Dioxide 19.0 mmol/L (20.0-29.0); Chloride 102 mmol/L (96-106); Globulin 3.1 g/dL (2.2-4.2); Glucose 114 mg/dL (70-99); Potassium 3.8 mmol/L (3.5-5.1)
[2025-09-19 17:23] LABS: Creatinine, Urine (random) 105.00 mg/dL (28.00-217.00); Protein, Urine (Random) 11.9 mg/dL (0.0-12.0); Protein:Creat Ratio 113 mg/g CRE (0-200)
== END | disposition home or self-care (01) ==
PROVIDERS: Visit Provider Advanced Practice Midwife
DX: O99.891 Other specified diseases and conditions complicating pregnancy (principal); R51.9 Headache, unspecified; O09.93 Supervision of high risk pregnancy, unspecified, third trimester; Z87.59 Personal history of other complications of pregnancy, childbirth and the puerperium; Z3A.00 Weeks of gestation of pregnancy not specified
CPT/HCPCS: 36415; 80053; 82570; 84156; 85025